=== PATIENT | female | born 1965 | race Caucasian/White ===

== ENCOUNTER → 2019-12-07 | Outpatient (CLI) | payer SELFPAY ==
[~2019-12-07] MED LIST: ALBUTEROL MDI; ALPR.5T PO; ASP81TEC PO; Albuterol; BUDE6HFA IH; FLUO60TA PO
--- NOTE | 2019-12-07 13:12 | Diagnostic Imaging Report ---
INDICATION: Abdominal pain on the left. Time of exam 12:11 PM The bowel gas pattern is nonobstructed. No pathologic calcifications are seen. No free air is identified. IMPRESSION: No acute features detected. Dictated by: Dictated on workstation # [id number]
== END ==
LOC: RAD FS 11:50
PROVIDERS: ATTEND Family Medicine
DX: R10.32 Left lower quadrant pain (principal)
CPT/HCPCS: 74018

== ENCOUNTER 2020-03-08 05:50 | Outpatient (RCR) | payer OTHER ==
[~2020-03-08] VITALS: Ht 177.8 cm; Wt 64.5 kg
[~2020-03-08 05:50] MED LIST changes: +ASPI-999 PO; +DULO30CA49 PO; +MV-M1TAB57 PO; +NF-LAMO200 PO
== END 2020-03-08 15:08 | disposition home or self-care (01) ==
LOC: PREOP 05:50
PROVIDERS: ATTEND Surgery
DX: Z01.818 Encounter for other preprocedural examination (principal); Z01.812 Encounter for preprocedural laboratory examination; R19.5 Other fecal abnormalities; R19.4 Change in bowel habit; R10.12 Left upper quadrant pain; Z20.828 Contact with and (suspected) exposure to other viral communicable diseases
CPT/HCPCS: 87635

== ENCOUNTER 2020-03-13 07:21 | Day surgery (SDC) | payer OTHER ==
[2020-03-13] VITALS (8 sets, daily range): BP systolic 105–121; BP diastolic 62–73
[~2020-03-13] VITALS: Ht 177.8 cm; Wt 64.5 kg
--- OUTSIDE RECORDS SUMMARY | 2020-03-13 07:28 | XMS REPORT ---
Author Author Bailey MOURA Organization [facility] Address [address] [place] [address] Care Team Providers Care Display Screen Fabricator Name Role Phone DAVID MOURA Unavailable PROBLEMS Type Condition ICD9-CM Code [id number] Code Onset Dates Condition S tatus SNOMED Code Problem Panic disorder with agoraphobia and moderate panic attacks F40.01 Active 8938480 Problem Bipolar II disorder F31.81 Active 65497649 Problem ADHD (attention deficit hyperactivity disorder), inattentive type F90.0 Active 88230695 Problem Menopause Z78.0 Active 298343510 Problem Bipolar affective disorder, currently depressed, mild F31.31 Active 902894109 Problem Major depressive disorder wi th single episode, remission status unspecified F32.9 Active 22716712 Problem Rhinosinusitis J32.9 Active 85544 4004 Problem Chronic obstructive pulmonary disease, unspecified COPD ty pe J44.9 Active 98290723 Problem Attention deficit hyperactivity disorder (ADHD), combi lars type F90.2 Active 62852115 Problem Alcohol abuse F10.10 Active 166656 05 Problem Alcohol consumption binge drinking F10.10 Active 073762431 Problem Bipolar affective disorder, currently depressed, moderate F31.32 Active 392666849 ALLERGIES No Information ENCOUNTERS Encounter Location Date Diagnosis [facility] [address] [id number] [place] [address] Nov, [facility] [address] [id number] [place] [address] 17 Nov, 2019 [facility] [address] [facility] [id number] [address] [place] [address] Aug, Rhinosinusitis J32.9 and Sor e throat J02.9 [facility] [address] [facility] [id number] [address] [place] [address] May, Bronchitis J40 and Wheezing R06.2 [place] [address] [address] Mar, Bipolar affective disorder, currently de pressed, mild F31.31 [place] [address] [address] Feb, [place] [address] [address] Feb, [place] [address] [address] Feb, [place] [address] [address] Feb, Chronic obstructive pulmonary disease, u nspecified COPD type J44.9 [place] [address] [address] January, [place] [address] [address] Dec, Bipolar affective disorder, currently de pressed, moderate F31.32 ; Panic disorder with agoraphobia and moderate panic attacks F40.01 and Alcohol consumption binge drinking F10.10 [place] [address] [address] Nov, Chronic obstructive pulmonary disease, u nspecified COPD type J44.9 [place] [address] [address] Nov, [address] [place] [address] Nov, Screening for breast cancer Z12.31 [place] [address] [address] Oct, Left arm pain M79.602 ; Screening for br east cancer Z12.31 ; Encounter for smoking cessation counseling Z71.6 ; Major depressive disorder with single episode, remission status unspecified F32.9 ; Panic disorder with agoraphobia and moderate panic attacks F40.01 and Neck pain M54.2 [facility] [address] [place] [id number] [place] [address] Oct, Chronic obstructive pulmonary disease, u nspecified COPD type J44.9 [facility] [address] [place] [id number] [place] [address] Sep, [facility] [address] [address] Jul, Chronic obstructive pulmonary disease, u nspecified COPD type J44.9 [facility] [address] [address] Jul, Chronic obstructive pulmonary disease, u nspecified COPD type J44.9 [facility] [address] [address] Jun, [facility] [address] [address] Jun, [place] [address] [address] May, [facility] [address] [address] Apr, [place] [address] [address] Apr, Screening for diabetes mellitus Z13.1 ; Screening for lipid disorders Z13.220 and Post-menopause Z78.0 [place] [address] [address] Apr, Pain in female genitalia on intercourse N94.10 ; Well woman exam with routine gynecological exam Z01.419 ; Major depressive disorder with current active episode, unspecified depression episode severity, unspecified whether recurrent F32.9 ; Post-menopause Z78.0 ; Screening for diabetes mellitus Z13.1 and Screening for lipid disorders Z13.220 [facility] [address] [place] [id number] [place] [address] Nov, [facility] [address] [address] Nov, [facility] [address] [facility] [id number] [address] [place] [address] Oct, Sore throat J02.9 and Nasoph aryngitis acute J00 [facility] [address] [id number] [place] [address] May, Chronic obstructive pulmonary disease, u nspecified COPD type J44.9 [facility] [address] [place] [id number] [place] [address] May, [facility] [address] [address] Apr, Chronic obstructive pulmonary disease, u nspecified COPD type J44.9 [facility] [id number] [place] [address] Apr, Chronic obstructive pulmonary disease, u nspecified COPD type J44.9 [facility] [id number] [place] [address] Mar, [facility] [id number] [place] [id number] Mar, Dental caries K02.9 [facility] [address] [address] January, Menopause Z78.0 [facility] [address] [address] Dec, [facility] [address] [id number] [place] [address] Dec, [facility] [address] [address] Dec, [facility] [address] [address] Dec, [facility] [address] [address] Nov, Chronic obstructive pulmonary disease, u nspecified COPD type J44.9 ; Right elbow pain M25.521 ; Menopause Z78.0 and Bipolar II disorder F31.81 [place] [address] [address] Oct, [place] [address] [address] Oct, [place] [address] [address] Oct, Bipolar II disorder F31.81 ; Panic disor mitul with agoraphobia and moderate panic attacks F40.01 and Attention deficit hyperactivity disorder (ADHD), combined type F90.2 [place] [address] [address] Oct, Lateral epicondylitis of right elbow M77 .11 [place] [address] [address] Sep, Lateral epicondylitis of right elbow M77 .11 and Major depressive disorder with single episode, remission status unspecified F32.9 [place] [address] [address] Aug, Lateral epicondylitis of right elbow M77 .11 [place] [address] [address] 16 Jul, 2016 Menopause Z78.0 [place] [address] [address] 12 May, 2016 [place] [address] [address] 08 May, 2016 Well woman exam with routine gynecologic al exam Z01.419 ; Lateral epicondylitis of right elbow M77.11 and Chronic obstructive pulmonary disease, unspecified COPD type J44.9 [place] [address] [address] 19 Mar, 2016 Major depressive disorder with single ep isode, remission status unspecified F32.9 ; Chronic obstructive pulmonary disease, unspecified COPD type J44.9 ; Right elbow pain M25.521 and Menopause Z78.0 [place] [address] [address] Mar, [facility] [address] [address] Feb, Right elbow pain M25.521 and Chronic obs tructive pulmonary disease, unspecified COPD type J44.9 [facility] [address] [address] January, Anxiety disorder, unspecified F41.9 and Major depressive disorder, single episode, unspecified F32.9 [facility] [address] [address] Nov, [facility] [address] [address] Jun, [facility] [address] [address] Jun, [facility] [address] [address] Jun, [facility] [address] [address] May, [facility] [address] [address] May, Sinusitis 473.9 [facility] [address] [address] May, [facility] [address] [address] Apr, Dysuria 788.1 ; Urinary tract infection 599.0 ; Depression 311 ; Anxiety 300.00 and Muscle spasm 728.85 [facility] [address] [address] Apr, [facility] [address] [address] Apr, [facility] [address] [address] Apr, [facility] [address] [address] Mar, Lateral epicondylitis of right elbow 726 .32 [place] [address] [address] Mar, [facility] [address] [address] Feb, Anxiety 300.00 ; Tendonitis 726.90 ; Pablo k spasm 724.8 and Lumbago 724.2 [place] [address] [address] Dec, [place] [address] [address] Dec, [place] [address] [address] Jun, [place] [address] [address] Jun, [place] [address] [address] Dec, [place] [address] [address] Dec, [place] [address] [address] Jun, [place] [address] [address] Jun, IMMUNIZATIONS No Known Immunizations SOCIAL HISTORY Never Assessed REASON FOR VISIT Repository Medication PLAN OF CARE VITAL SIGNS MEDICATIONS Medication Instructions Dosage Frequency Start Date End Date Duration S tatus Symbicort 160-4.5 MCG/ACT Inhalation Twice a day INHALE TWO PUFFS BY MOUTH TWICE DAILY 12h Active Aspirin 81 MG Orally Once a day 1 tablet 24h Active Prozac 20 mg Orally Once a day 3 capsules in the morning 24h 60 days Active Premarin 0.625 MG/GM Vaginal daily x 1 week then twice weekly af ter as directed Apr, Not-Taking Prozac 40 mg Orally Once a day 1 capsule in the morning 24h 30 days Not-Taking RESULTS No Results PROCEDURES No Known procedures INSTRUCTIONS MEDICATIONS ADMINISTERED No Known Medications MEDICAL (GENERAL) HISTORY Type Description Date Medical History depression Medical History elbow pain Medical History Bipolar II disorder Medical History Chronic obstructive pulmonary disease, u nspecified COPD type Medical History Major depressive disorder wi th single episode, remission status unspecified Medical History Panic disorder with agoraphobia and mode rate panic attacks Medical History ADHD (attention deficit hype ractivity disorder), inattentive type Surgical History section 1985 Surgical History cataract both eyes Surgical History left arm rotator cuff Hospitalization History surgical only
--- OUTSIDE RECORDS SUMMARY | 2020-03-13 07:28 | XMS REPORT ---
Author Author Bailey Perry Organization [facility] Address [address] [place] [address] Care Team Providers Care Plant Controller Name Role Phone CHERYL Perry Unavailable PROBLEMS Type Condition ICD9-CM Code [id number] Code Onset Dates Condition S tatus SNOMED Code Problem Panic disorder with agoraphobia and moderate panic attacks F40.01 Active 1577568 Problem Bipolar II disorder F31.81 Active 12725382 Problem ADHD (attention deficit hyperactivity disorder), inattentive type F90.0 Active 17490714 Problem Menopause Z78.0 Active 548872524 Problem Bipolar affective disorder, currently depressed, mild F31.31 Active 115803821 Problem Major depressive disorder wi th single episode, remission status unspecified F32.9 Active 42843385 Problem Rhinosinusitis J32.9 Active 70160 4004 Problem Chronic obstructive pulmonary disease, unspecified COPD ty pe J44.9 Active 68056490 Problem Attention deficit hyperactivity disorder (ADHD), combi lars type F90.2 Active 99521639 Problem Alcohol abuse F10.10 Active 533441 05 Problem Alcohol consumption binge drinking F10.10 Active 957386178 Problem Bipolar affective disorder, currently depressed, moderate F31.32 Active 885453474 ALLERGIES No Information ENCOUNTERS Encounter Location Date Diagnosis [facility] [address] [id number] [place] [address] Oct, [facility] [address] [facility] [id number] [address] [place] [address] Aug, Rhinosinusitis J32.9 and Sor e throat J02.9 [facility] [address] [facility] [id number] [address] [place] [address] May, Bronchitis J40 and Wheezing R06.2 [facility] [address] [place] [id number] [place] [address] Mar, Bipolar affective disorder, currently de pressed, mild F31.31 [place] [address] [address] Feb, [place] [address] [address] Feb, [place] [address] [address] Feb, [place] [address] [address] Feb, Chronic obstructive pulmonary disease, u nspecified COPD type J44.9 [place] [address] [address] January, [place] [address] [address] Dec, Bipolar affective disorder, currently de pressed, moderate F31.32 ; Panic disorder with agoraphobia and moderate panic attacks F40.01 and Alcohol consumption binge drinking F10.10 [place] [address] [address] Nov, Chronic obstructive pulmonary disease, u nspecified COPD type J44.9 [place] [address] [place] [id number] [place] [address] Nov, [address] [place] [address] Nov, Screening for breast cancer Z12.31 [place] [address] [address] Oct, Left arm pain M79.602 ; Screening for br east cancer Z12.31 ; Encounter for smoking cessation counseling Z71.6 ; Major depressive disorder with single episode, remission status unspecified F32.9 ; Panic disorder with agoraphobia and moderate panic attacks F40.01 and Neck pain M54.[address] [address] Oct, Chronic obstructive pulmonary disease, u nspecified COPD type J44.9 [facility] [address] [facility] [place] [address] Sep, [facility] [address] [place] [id number] [place] [address] Jul, Chronic obstructive pulmonary disease, u nspecified COPD type J44.9 [facility] [address] [place] [id number] [place] [address] Jul, Chronic obstructive pulmonary disease, u nspecified COPD type J44.9 [facility] [address] [place] [id number] [place] [address] Jun, [facility] [address] [id number] [place] [address] Jun, [place] [address] [facility] [place] [address] May, [facility] [address] [id number] [place] [address] Apr, [facility] [address] [facility] [place] [address] Apr, Screening for diabetes mellitus Z13.1 ; Screening for lipid disorders Z13.220 and Post-menopause Z78.0 [place] [address] [facility] [place] [address] Apr, Pain in female genitalia on intercourse N94.10 ; Well woman exam with routine gynecological exam Z01.419 ; Major depressive disorder with current active episode, unspecified depression episode severity, unspecified whether recurrent F32.9 ; Post-menopause Z78.0 ; Screening for diabetes mellitus Z13.1 and Screening for lipid disorders Z13.220 [place] [address] [facility] [place] [address] Nov, [facility] [address] [facility] [place] [address] Nov, [facility] [address] [facility] [id number] [address] [place] [address] Oct, Sore throat J02.9 and Nasoph aryngitis acute J00 [facility] [address] [address] May, Chronic obstructive pulmonary disease, u nspecified COPD type J44.9 [facility] [address] [address] May, [facility] [address] [address] Apr, Chronic obstructive pulmonary disease, u nspecified COPD type J44.9 [place] [address] [address] Apr, Chronic obstructive pulmonary disease, u nspecified COPD type J44.9 [facility] [address] [address] Mar, [facility] [address] [id number] Mar, Dental caries K02.9 [facility] [address] [address] January, Menopause Z78.0 [facility] [address] [address] Dec, [facility] [address] [address] Dec, [facility] [address] [address] Dec, [facility] [address] [address] Dec, [facility] [address] [address] Nov, Chronic obstructive pulmonary disease, u nspecified COPD type J44.9 ; Right elbow pain M25.521 ; Menopause Z78.0 and Bipolar II disorder F31.81 [facility] [address] [address] Oct, [place] [address] [address] Oct, [place] [address] [address] Oct, Bipolar II disorder F31.81 ; Panic disor mitul with agoraphobia and moderate panic attacks F40.01 and Attention deficit hyperactivity disorder (ADHD), combined type F90.2 [place] [address] [address] Oct, Lateral epicondylitis of right elbow M77 .11 [place] [address] [address] Sep, Lateral epicondylitis of right elbow M77 .11 and Major depressive disorder with single episode, remission status unspecified F32.9 [place] [address] [address] Aug, Lateral epicondylitis of right elbow M77 .11 [place] [address] [address] Jul, Menopause Z78.0 [place] [address] [address] 12 May, 2016 [place] [address] [address] 08 May, 2016 Well woman exam with routine gynecologic al exam Z01.419 ; Lateral epicondylitis of right elbow M77.11 and Chronic obstructive pulmonary disease, unspecified COPD type J44.9 [place] [address] [address] Mar, Major depressive disorder with single ep isode, remission status unspecified F32.9 ; Chronic obstructive pulmonary disease, unspecified COPD type J44.9 ; Right elbow pain M25.521 and Menopause Z78.0 [place] [address] [address] 05 Mar, [address] [address] Feb, Right elbow pain M25.521 and Chronic obs tructive pulmonary disease, unspecified COPD type J44.9 [facility] [address] [address] January, Anxiety disorder, unspecified F41.9 and Major depressive disorder, single episode, unspecified F32.9 [facility] [address] [address] Nov, [facility] [address] [address] Jun, [facility] [address] [address] Jun, [facility] [address] [address] Jun, [facility] [address] [address] May, [facility] [address] [address] May, Sinusitis 473.9 [place] [address] [address] May, [facility] [address] [address] Apr, Dysuria 788.1 ; Urinary tract infection 599.0 ; Depression 311 ; Anxiety 300.00 and Muscle spasm 728.85 [facility] [address] [address] Apr, [facility] [address] [address] Apr, [facility] [address] [address] Apr, [facility] [address] [address] Mar, Lateral epicondylitis of right elbow 726 .32 [facility] [address] [address] Mar, [facility] [address] [address] Feb, Anxiety 300.00 ; Tendonitis 726.90 ; Pablo k spasm 724.8 and Lumbago 724.2 [place] [address] [address] Dec, [facility] [address] [address] Dec, [place] [address] [address] Jun, [place] [address] [address] Jun, [place] [address] [address] Dec, [facility] [address] [address] Dec, [place] [address] [address] Jun, [place] [address] [address] Jun, IMMUNIZATIONS No Known Immunizations SOCIAL HISTORY Never Assessed REASON FOR VISIT PLAN OF CARE VITAL SIGNS Height 70 in 2013-12-30 Weight 154.25 lbs 2013-12-30 Temperature 100.3 degrees Fahrenheit 2013-12-30 Heart Rate 96 bpm 2013-12-30 Respiratory Rate 20 2013-12-30 Blood pressure systolic 105 mmHg 2013-12-30 Blood pressure diastolic 68 mmHg 2013-12-30 MEDICATIONS Unknown Medications RESULTS No Results PROCEDURES Procedure Date Ordered Result Body Site STREP A ASSAY W/OPTIC December 30, 2013 INSTRUCTIONS MEDICATIONS ADMINISTERED No Known Medications MEDICAL [...] ractivity disorder), inattentive type Surgical History section 1988, 1985 Surgical History cataract both eyes Surgical History left arm rotator cuff Hospitalization History surgical only
--- OUTSIDE RECORDS SUMMARY | 2020-03-13 07:28 | XMS REPORT ---
Author Author Bailey Perry Organization [facility] Address [address] [place] [address] Care Team Providers Care Mill Recorder Name Role Phone CHERYL Perry Unavailable PROBLEMS Type Condition ICD9-CM Code SXS21-SZ Code Onset Dates Condition S tatus SNOMED Code Problem Panic disorder with agoraphobia and moderate panic attacks F40.01 Active 5839485 Problem Bipolar II disorder F31.81 Active 19687890 Problem ADHD (attention deficit hyperactivity disorder), inattentive type F90.0 Active 93261164 Problem Menopause Z78.0 Active 815726723 Problem Bipolar affective disorder, currently depressed, mild F31.31 Active 956134640 Problem Major depressive disorder wi th single episode, remission status unspecified F32.9 Active 86579797 Problem Rhinosinusitis J32.9 Active 58313 4004 Problem Chronic obstructive pulmonary disease, unspecified COPD ty pe J44.9 Active 41898583 Problem Attention deficit hyperactivity disorder (ADHD), combi lars type F90.2 Active 85866618 Problem Alcohol abuse F10.10 Active 136250 05 Problem Alcohol consumption binge drinking F10.10 Active 528596124 Problem Bipolar affective disorder, currently depressed, moderate F31.32 Active 864322851 ALLERGIES No Information ENCOUNTERS Encounter Location Date Diagnosis [place] [address] [address] [facility] [id number] [address] [place] [address] Mar, [place] [address] [address] [facility] [id number] [address] [place] [address] Mar, [place] [address] [address] [place] [id number] [address] [place] [address] Feb, Bipolar affective disorder, currently depressed, mild F31.31 and Panic disorder with agoraphobia and moderate panic attacks F40.01 [place] [address] [address] [place] [id number] [address] [place] [address] January, Bipolar affective disorder, currently depressed, mild F31.31 and Panic disorder with agoraphobia and moderate panic attacks F40.01 [facility] [place] [address] [place] [id number] [address] [place] [address] January, [place] [id number] [place] [address] Dec, [place] [address] [address] Dec, Bipolar affective disorder, currently depressed, mild F31.31 [place] [address] [address] Dec, LLQ abdominal pain R10.[id number] [place] [address] Dec, LLQ abdominal pain R10.32 an d Bowel habit changes R19.4 [place] [address] [address] [place] [id number] [address] [place] [address] Nov, Bipolar affective disorder, currently depressed, mild F31.31 and Panic disorder with agoraphobia and moderate panic attacks F40.01 [facility] [address] [place], [place] [id number] [address] [place] [address] Aug, Rhinosinusitis J32.9 and Sor e throat J02.9 [facility] [address] [place], [place] [id number] [address] [place] [address] May, Bronchitis J40 and Wheezing R06.[address] [address] Mar, Bipolar affective disorder, currently depressed, mild F31.31 [place] [address] [address] [place] [id number] [address] [place] [address] Feb, [place] [address] [address] Feb, [place] [address] [address] [place] [id number] [address] [place] [address] Feb, [place] [address] [place] [address] Feb, Chronic obstructive pulmonar y disease, unspecified COPD type J44.9 [place] [address] [address] [place] [id number] [address] [place] [address] January, [place] [address] [address] [place] [id number] [address] [place] [address] Dec, Bipolar affective disorder, currently depressed, moderate F31.32 ; Panic disorder with agoraphobia and moderate panic attacks F40.01 and Alcohol consumption binge drinking F10.10 [place] [id number] [address] [place] [address] Nov, Chronic obstructive pulmonar y disease, unspecified COPD type J44.9 [place] [address] [address] [place] [id number] [address] [place] [address] Nov, [id number] [place] [address] Nov, Screening for breast cancer Z12.31 [place] [id number] [address] [place] [address] Oct, Left arm pain M79.602 ; Scre ening for breast cancer Z12.31 ; Encounter for smoking cessation counseling Z71.6 ; Major depressive disorder with single episode, remission status unspecified F32.9 ; Panic disorder with agoraphobia and moderate panic attacks F40.01 and Neck pain M54.2 [place] [id number] [address] [place] [address] 05 Oct, 2018 Chronic obstructive pulmonar y disease, unspecified COPD type J44.9 [place] [address] [address] [place] [id number] [address] [place] [address] Sep, [address] [place] [address] Jul, Chronic obstructive pulmonar y disease, unspecified COPD type J44.9 [facility] [place] [address] [facility] [id number] [address] [place] [address] Jul, Chronic obstructive pulmonar y disease, unspecified COPD type J44.9 [facility] [place] [address] [facility] [id number] [address] [place] [address] Jun, [facility] [place] [address] [place] [id number] [address] [place] [address] Jun, [facility] [place] [address] [address] May, [facility] [place] [address] [address] Apr, [facility] [place] [address] [address] Apr, Screening for diabetes melli tus Z13.1 ; Screening for lipid disorders Z13.220 and Post-menopause Z78.0 [place] [address] [address] Apr, Pain in female genitalia on intercourse N94.10 ; Well woman exam with routine gynecological exam Z01.419 ; Major depressive disorder with current active episode, unspecified depression episode severity, unspecified whether recurrent F32.9 ; Post-menopause Z78.0 ; Screening for diabetes mellitus Z13.1 and Screening for lipid disorders Z13.220 [facility] [place] [address] [facility] [id number] [address] [place] [address] Nov, [facility] [place] [address] [address] Nov, [facility] [address] [place] [id number] [address] [place] [address] Oct, Sore throat J02.9 and Nasoph aryngitis acute J00 [facility] [place] [address] [facility] [id number] [address] [place] [address] May, Chronic obstructive pulmonar y disease, unspecified COPD type J44.9 [facility] [place] [address] [id number] [address] [place] [address] May, [facility] [place] [address] [facility] [id number] [address] [place] [address] Apr, Chronic obstructive pulmonar y disease, unspecified COPD type J44.9 [facility] [place] [address] [id number] [address] [place] [address] Apr, Chronic obstructive pulmonar y disease, unspecified COPD type J44.9 [facility] [place] [address] [id number] [address] [place] [address] Mar, [facility] [address] [id number] [address] [place] [id number] Mar, Dental caries K02.9 [facility] [place] [address] [facility] [id number] [address] [place] [address] January, Menopause Z78.0 [facility] [place] [address] [facility] [id number] [address] [place] [address] Dec, [facility] [place] [address] [facility] [id number] [address] [place] [address] Dec, [facility] [place] [address] [facility] [id number] [address] [place] [address] Dec, [facility] [place] [address] [facility] [id number] [address] [place] [address] Dec, [facility] [place] [address] [facility] [id number] [address] [place] [address] Nov, Chronic obstructive pulmonar y disease, unspecified COPD type J44.9 ; Right elbow pain M25.521 ; Menopause Z78.0 and Bipolar II disorder F31.81 [facility] [place] [address] [facility] [id number] [address] [place] [address] Oct, [facility] [place] [address] [id number] [address] [place] [address] Oct, [facility] [place] [address] [id number] [address] [place] [address] Oct, Bipolar II disorder F31.81 ; Panic disorder with agoraphobia and moderate panic attacks F40.01 and Attention deficit hyperactivity disorder (ADHD), combined type F90.2 [facility] [place] [address] [id number] [address] [place] [address] Oct, Lateral epicondylitis of rig ht elbow M77.11 [facility] [place] [address] [id number] [address] [place] [address] Sep, Lateral epicondylitis of rig ht elbow M77.11 and Major depressive disorder with single episode, remission status unspecified F32.9 [place] [address] [id number] [address] [place] [address] Aug, Lateral epicondylitis of rig ht elbow M77.11 [facility] [place] [address] [id number] [address] [place] [address] Jul, Menopause Z78.0 [facility] [place] [address] [id number] [address] [place] [address] 12 May, 2016 [facility] [place] [address] [id number] [address] [place] [address] 08 May, 2016 Well woman exam with routine gynecological exam Z01.419 ; Lateral epicondylitis of right elbow M77.11 and Chronic obstructive pulmonary disease, unspecified COPD type J44.9 [facility] [place] [address] [id number] [address] [place] [address] Mar, Major depressive disorder wi th single episode, remission status unspecified F32.9 ; Chronic obstructive pulmonary disease, unspecified COPD type J44.9 ; Right elbow pain M25.521 and Menopause Z78.0 [facility] [place] [address] [id number] [address] [place] [address] Mar, [facility] [place] [address] [facility] [id number] [address] [place] [address] Feb, Right elbow pain M25.521 and Chronic obstructive pulmonary disease, unspecified COPD type J44.9 [facility] [place] [address] [facility] [id number] [address] [place] [address] January, Anxiety disorder, unspecifie d F41.9 and Major depressive disorder, single episode, unspecified F32.9 [facility] [place] [address] [id number] [address] [place] [address] Nov, [facility] [place] [address] [place] [id number] [address] [place] [address] Jun, [facility] [place] [address] [place] [id number] [address] [place] [address] Jun, [facility] [place] [address] [place] [id number] [address] [place] [address] Jun, [facility] [place] [address] [facility] [id number] [address] [place] [address] May, [facility] [place] [address] [place] [id number] [address] [place] [address] May, Sinusitis 473.9 [facility] [place] [address] [facility] [id number] [address] [place] [address] May, [facility] [place] [address] [facility] [id number] [address] [place] [address] Apr, Dysuria 788.1 ; Urinary trac t infection 599.0 ; Depression 311 ; Anxiety 300.00 and Muscle spasm 728.85 [facility] [place] [address] [facility] [id number] [address] [place] [address] Apr, [facility] [place] [address] [facility] [id number] [address] [place] [address] Apr, [facility] [place] [address] [place] [id number] [address] [place] [address] Apr, [facility] [place] [address] [id number] [address] [place] [address] Mar, Lateral epicondylitis of rig ht elbow 726.32 [facility] [place] [address] [id number] [address] [place] [address] Mar, [facility] [place] [address] [id number] [address] [place] [address] Feb, Anxiety 300.00 ; Tendonitis 726.90 ; Back spasm 724.8 and Lumbago 724.2 [facility] [place] [address] [id number] [address] [place] [address] Dec, [facility] [place] [address] [id number] [address] [place] [address] Dec, [facility] [place] [address] [id number] [address] [place] [address] Jun, [facility] [place] [address] [id number] [address] [place] [address] Jun, [facility] [place] [address] [id number] [address] [place] [address] Dec, [facility] [place] [address] [id number] [address] [place] [address] Dec, [facility] [place] [address] [id number] [address] [place] [address] Jun, [facility] [place] [address] [id number] [address] [place] [address] Jun, IMMUNIZATIONS Vaccine Route Administration Date Status FLULAVAL (3 & UP) 2013 Unknown Jun 24, 2013 Administe red SOCIAL HISTORY Never Assessed REASON FOR VISIT PLAN OF CARE VITAL SIGNS MEDICATIONS Unknown Medications RESULTS No Results PROCEDURES No Known procedures [...]
--- OUTSIDE RECORDS SUMMARY | 2020-03-13 07:28 | XMS REPORT ---
Author Author Bailey Perry Organization [facility] Address [address] [place] [address] Care Team Providers Care Gang Vibrator Operator Name Role Phone CHERYL Perry Unavailable PROBLEMS Type Condition ICD9-CM Code [id number] Code Onset Dates Condition S tatus SNOMED Code Problem Panic disorder with agoraphobia and moderate panic attacks F40.01 Active 3335529 Problem Bipolar II disorder F31.81 Active 53641862 Problem ADHD (attention deficit hyperactivity disorder), inattentive type F90.0 Active 42512409 Problem Menopause Z78.0 Active 281593520 Problem Bipolar affective disorder, currently depressed, mild F31.31 Active 885296266 Problem Major depressive disorder wi th single episode, remission status unspecified F32.9 Active 27969594 Problem Rhinosinusitis J32.9 Active 53956 4004 Problem Chronic obstructive pulmonary disease, unspecified COPD ty pe J44.9 Active 61147901 Problem Attention deficit hyperactivity disorder (ADHD), combi lars type F90.2 Active 54008130 Problem Alcohol abuse F10.10 Active 656856 05 Problem Alcohol consumption binge drinking F10.10 Active 710221132 Problem Bipolar affective disorder, currently depressed, moderate F31.32 Active 822425554 ALLERGIES No Information ENCOUNTERS Encounter Location Date Diagnosis [place] [id number] [facility] [id number] [address] [place] [address] January, [facility] [address] [facility] [id number] [address] [place] [address] Dec, [place] [address] [facility] [id number] [address] [place] [address] Dec, [facility] [address] [facility] [id number] [address] [place] [address] Dec, Bipolar affective disorder, currently depressed, mild F31.31 [facility] [address] [facility] [id number] [address] [place] [address] 06 Dec, 2019 LLQ abdominal pain R10.32 [facility] [address] [id number] [address] Dec, LLQ abdominal pain R10.32 an d Bowel habit changes R19.4 [facility] [address] [facility] [id number] [address] [place] [address] Nov, Bipolar affective disorder, currently depressed, mild F31.31 and Panic disorder with agoraphobia and moderate panic attacks F40.01 [facility] IN [facility] [address] [facility] [id number] [address] [place] [address] Aug, Rhinosinusitis J32.9 and Sor e throat J02.9 [facility] IN [facility] [address] [facility] [id number] [address] [place] [address] May, Bronchitis J40 and Wheezing R06.2 [place] [address] [facility] [id number] [address] [place] [address] Mar, Bipolar affective disorder, currently depressed, mild F31.31 [place] [address] [facility] [id number] [address] [place] [address] Feb, [facility] [address] [facility] [id number] [address] [place] [address] Feb, [facility] [address] [facility] [id number] [address] [place] [address] Feb, [facility] [address] [facility] [id number] [address] [place] [address] Feb, Chronic obstructive pulmonar y disease, unspecified COPD type J44.9 [facility] [address] [facility] [id number] [address] [place] [address] January, [facility] [address] [facility] [id number] [address] [place] [address] Dec, Bipolar affective disorder, currently depressed, moderate F31.32 ; Panic disorder with agoraphobia and moderate panic attacks F40.01 and Alcohol consumption binge drinking F10.10 [facility] [address] [facility] [id number] [address] [place] [address] Nov, Chronic obstructive pulmonar y disease, unspecified COPD type J44.9 [facility] [address] [facility] [id number] [address] [place] [address] Nov, [address] [id number] [address] Nov, Screening for breast cancer Z12.31 [place] [address] [facility] [id number] [address] [place] [address] 25 Oct, 2018 Left arm pain M79.602 ; Scre ening for breast cancer Z12.31 ; Encounter for smoking cessation counseling Z71.6 ; Major depressive disorder with single episode, remission status unspecified F32.9 ; Panic disorder with agoraphobia and moderate panic attacks F40.01 and Neck pain M54.2 [place] [address] [facility] [id number] [address] [place] [address] 05 Oct, 2018 Chronic obstructive pulmonar y disease, unspecified COPD type J44.9 [facility] [address] [facility] [id number] [address] [place] [address] Sep, [facility] [address] [facility] [id number] [address] [place] [address] Jul, Chronic obstructive pulmonar y disease, unspecified COPD type J44.9 [facility] [address] [facility] [id number] [address] [place] [address] Jul, Chronic obstructive pulmonar y disease, unspecified COPD type J44.9 [facility] [address] [facility] [id number] [address] [place] [address] Jun, [facility] [address] [facility] [id number] [address] [place] [address] Jun, [facility] [address] [facility] [id number] [address] [place] [address] May, [facility] [address] [facility] [id number] [address] [place] [address] Apr, [facility] [address] [facility] [id number] [address] [place] [address] Apr, Screening for diabetes melli tus Z13.1 ; Screening for lipid disorders Z13.220 and Post-menopause Z78.0 [facility] [address] [facility] [id number] [address] [place] [address] 16 Apr, 2018 Pain in female genitalia on intercourse N94.10 ; Well woman exam with routine gynecological exam Z01.419 ; Major depressive disorder with current active episode, unspecified depression episode severity, unspecified whether recurrent F32.9 ; Post-menopause Z78.0 ; Screening for diabetes mellitus Z13.1 and Screening for lipid disorders Z13.220 [facility] [address] [facility] [id number] [address] [place] [address] Nov, [facility] [address] [facility] [id number] [address] [place] [address] Nov, [facility] IN [facility] [address] [facility] [id number] [address] [place] [address] Oct, Sore throat J02.9 and Nasoph aryngitis acute J00 [facility] [address] [facility] [id number] [address] [place] [address] May, Chronic obstructive pulmonar y disease, unspecified COPD type J44.9 [facility] [address] [facility] [id number] [address] [place] [address] May, [facility] [address] [facility] [id number] [address] [place] [address] Apr, Chronic obstructive pulmonar y disease, unspecified COPD type J44.9 [facility] [address] [facility] [id number] [address] [place] [address] Apr, Chronic obstructive pulmonar y disease, unspecified COPD type J44.9 [facility] [address] [id number] [address] [place] [address] Mar, [facility] [address] [id number] [address] [place] [id number] Mar, Dental caries K02.9 [facility] [address] [id number] [address] [place] [address] January, Menopause Z78.0 [facility] [address] [id number] [address] [place] [address] Dec, [facility] [address] [id number] [address] [place] [address] Dec, [facility] [address] [id number] [address] [place] [address] Dec, [facility] [address] [id number] [address] [place] [address] Dec, [facility] [address] [id number] [address] [place] [address] Nov, Chronic obstructive pulmonar y disease, unspecified COPD type J44.9 ; Right elbow pain M25.521 ; Menopause Z78.0 and Bipolar II disorder F31.81 [facility] [address] [id number] [address] [place] [address] Oct, [facility] [address] [id number] [address] [place] [address] Oct, [facility] [address] [id number] [address] [place] [address] Oct, Bipolar II disorder F31.81 ; Panic disorder with agoraphobia and moderate panic attacks F40.01 and Attention deficit hyperactivity disorder (ADHD), combined type F90.2 [facility] [address] [id number] [address] [place] [address] Oct, Lateral epicondylitis of rig ht elbow M77.11 [facility] [address] [id number] [address] [place] [address] Sep, Lateral epicondylitis of rig ht elbow M77.11 and Major depressive disorder with single episode, remission status unspecified F32.9 [facility] [address] [id number] [address] [place] [address] 07 Aug, 2016 Lateral epicondylitis of rig ht elbow M77.11 [facility] [address] [id number] [address] [place] [address] 16 Jul, 2016 Menopause Z78.0 [place] [address] [id number] [address] [place] [address] 12 May, 2016 [facility] [address] [id number] [address] [place] [address] 08 May, 2016 Well woman exam with routine gynecological exam Z01.419 ; Lateral epicondylitis of right elbow M77.11 and Chronic obstructive pulmonary disease, unspecified COPD type J44.9 [place] [address] [id number] [address] [place] [address] Mar, Major depressive disorder wi th single episode, remission status unspecified F32.9 ; Chronic obstructive pulmonary disease, unspecified COPD type J44.9 ; Right elbow pain M25.521 and Menopause Z78.0 [facility] [address] [id number] [address] [place] [address] Mar, [facility] [address] [id number] [address] [place] [address] Feb, Right elbow pain M25.521 and Chronic obstructive pulmonary disease, unspecified COPD type J44.9 [facility] [address] [id number] [address] [place] [address] January, Anxiety disorder, unspecifie d F41.9 and Major depressive disorder, single episode, unspecified F32.9 [facility] [address] [id number] [address] [place] [address] Nov, [facility] [address] [id number] [address] [place] [address] Jun, [facility] [address] [facility] [id number] [address] [place] [address] Jun, [facility] [address] [facility] [id number] [address] [place] [address] Jun, [facility] [address] [place] [id number] [address] [place] [address] May, [facility] [address] [facility] [id number] [address] [place] [address] May, Sinusitis 473.9 [facility] [address] [place] [id number] [address] [place] [address] May, [facility] [address] [place] [id number] [address] [place] [address] Apr, Dysuria 788.1 ; Urinary trac t infection 599.0 ; Depression 311 ; Anxiety 300.00 and Muscle spasm 728.85 [facility] [address] [place] [id number] [address] [place] [address] Apr, [facility] [address] [place] [id number] [address] [place] [address] Apr, [facility] [address] [place] [id number] [place] [address] Apr, [facility] [address] [place] [id number] [address] [place] [address] Mar, Lateral epicondylitis of rig ht elbow 726.32 [facility] [address] [facility] [id number] [address] [place] [address] Mar, [facility] [address] [place] [id number] [address] [place] [address] Feb, Anxiety 300.00 ; Tendonitis 726.90 ; Back spasm 724.8 and Lumbago 724.2 [facility] [address] [place] [id number] [address] [place] [address] 14 Dec, 2014 [facility] [address] [id number] [address] [place] [address] Dec, [facility] [address] [id number] [address] [place] [address] Jun, [facility] [address] [facility] [id number] [address] [place] [address] Jun, [facility] [address] [facility] [id number] [address] [place] [address] Dec, [facility] [address] [facility] [id number] [address] [place] [address] Dec, [facility] [address] [facility] [id number] [address] [place] [address] Jun, [facility] [address] [facility] [id number] [address] [place] [address] Jun, IMMUNIZATIONS Vaccine Route Administration Date Status influenza IIV3 (history) Unknown Jun 16, 2014 Adminis tered SOCIAL HISTORY Never Assessed REASON FOR VISIT [...]
--- OUTSIDE RECORDS SUMMARY | 2020-03-13 07:28 | XMS REPORT ---
Author Author [facility] Workfolio [facility] Address [address] [address] Care Team Providers Care Crystalizer Tender Name Role Phone SABIHA OTTO Unavailable Unavailable BERTIN AMAROWNYA Unavailable Unavailable SABIHA OTTO Unavailable KELLY BILLY Unavailable SABIHA OTTO Unavailable KELLY BILLY Unavailable CECILIA BLISS Unavailable SABIHA OTTO Unavailable SABIHA Zambrano Unavailable KELLY BILLY Unavailable JAZMINE GONZALEZ Unavailable CONRAD GEE Unavailable KELLY BILLY Unavailable KELLY BILLY Unavailable GAMILKA, DAVID Unavailable GAULT, DAVID Unavailable GAULT, DAVID Unavailable GAULT, DAVID Unavailable GAULT, DAVID Unavailable GAULT, DAVID Unavailable GAULT, DAVID Unavailable Migration, Doctor Unavailable Unavailable Migration, Doctor Unavailable Unavailable GAULT, DAVID Unavailable Unavailable GAULT, DAVID Unavailable zzRAJOTTE, Unavailable GAULT, DAVID Unavailable DAVID MOURA MD Unavailable Unavailable Unavailable Unavailable Orlando Unavailable MD Zheng MOURA Unavailable Unavailable Unavailable Unavailable Unavailable Unavailable Allergies Normalized Allergy Reported Date of Reaction(s) Care Provider Facility Allergy Type classification allergen Allergy Onset DA (16 Unclassified No Known Drug 07-14-2013 - no information PAULO KINSEY Not Available sources.) Allergies , (97735) Medications Current Medications Medication Ingredient Drug Dose Dates Status Sig Sig Care Class(es) (Normalized) (Original) Provid er DULoxetine DULoxetine Serotonin Active no Duloxetine no 30 mg and information Hcl Active name delayed Norepinephr 90 ORAL release ine Daily oral Reuptake capsule (1 Inhibitor source.) lamoTRIgine lamoTRIgine Mood Active no Lamotrigine no 200 mg oral Stabilizer, information Active 1 name tablet (1 Anti-epilep ORAL Bedtime source.) tic Agent no Mv-Mn/Folic no Active no Mv-Mn/Folic no information Acid/Calciu information information Acid/Calcium name (1 source.) m/Vit K /Vit K Active 1 ORAL Daily Completed/Discontinued Medications Medication Ingredient Drug Dose Dates Status Sig Sig Care Class(es) (Normalized) (Original) Provid er no Albuterol beta2-Adren 07-14-20 Complete no Albuterol no information ergic 13 - d information Discontinued name (2 Agonist 03-06-20 NOT sources.) 20 APPLICABLE July 14, 2013 11:18am March 06, 2020 07-14-2013 Completed no Albutero no name - inform l Jose David 03-06-2020 ation Disconti nued 2 NOT APPLICAB LE Four Times Daily 1 July 14, 2013 11:18am March 06, 2020 ALPRAZolam ALPRAZolam Benzodiazep 03-06-20 Complete no Alpra zolam no 0.5 mg oral ine 20 d information Discontinued name tablet (1 1 ORAL Three source.) Times A Day And Prn March 06, 2020 Problems Problem Normalized Date Last Normalized Normalized Provider Fa cility Classification Problem(s) Recorded Problem Problem Sta tus Duration Other Arthralgia of Episodic Active DAVID Ratliff ity non-traumatic the upper arm [address] [facility] joint Translations: of [place] disorders (6 [ Right elbow [place] ([address]110) sources.) pain, Right elbow pain] Nonspecific Chest pain, Episodic Active PAULO ODGERS Not Available chest pain (4 unspecified , (95714) sources.) Other Encounter for Episodic Active DAVIDOtto MOURA [facility] [place] [address] [facility] suspected lipoid of [facility] conditions disorders [place] ([address]2862) (not mental Translations: disorders or [ - Screening infectious for lipid disease) (20 disorders sources.) Z13.220, - Screening for diabetes mellitus Z13.1, - Screening for diabetes mellitus Z13.1, - Screening for lipid disorders Z13.220, OTH SCREEN MAMMO-MALIGN NEOPLASM OF JOSE, OT (ABN) FINDINGS ON RADIOLOGICAL EXAMI, - Screening for breast cancer Z12.31] Other Lateral Episodic Active Stretch [facility] connective epicondylitis [address] [facility] tissue disease Translations: of [facility] (6 sources.) [ Lateral [place] ([address]35) epicondylitis of right elbow, Lateral epicondylitis of right elbow] Nonmalignant Other Episodic Active PETRA Not Avail able breast specified DO CECIL (98325) conditions (4 disorders of sources.) breast Other female Pain in female Chronic [facility] [place] [address] [facility] disorders (6 intercourse of [place] sources.) Translations: [place] ([address]) [ Pain in female genitalia on intercourse, Pain in female genitalia on intercourse] Other lower Painful Episodic Active PAULO ODGERS Not Cammy ilable respiratory respiration , (42401) disease (4 sources.) Substance-rela Tobacco use Chronic Active PAULO ODGERS N ot Available leti disorders disorder MD (72141) (4 sources.) Procedures Procedure Normalized Procedure Procedure Result Performer Facility Date 04-26-2018 Assay of estradiol no information no name [facility] (20940) 04-26-2018 Blood count complete no information no name [facility] [employer] auto&auto difrntl wbc [facility] (80863) 04-26-2018 Comprehensive no information no name [facility] metabolic panel [facility] (08191) 04-22-2018 Culture fngi no information no name [facility] mold/yeast prsmptv [facility] xcpt blood [place] (34433) 04-22-2018 Handlg&/or convey of no information no name [facility] [employer] spec for tr office to [facility] lab [place] (89557) 04-26-2018 Hemoglobin no information no name [facility] glycosylated a1c [facility] (29001) 04-22-2018 Iaadiadoo trichomonas no information no name [facility] vaginalis [facility] (30992) 04-22-2018 Infectious agent no information no name [facility] enzymatic actv oth/thn [facility] (28429) 04-26-2018 Lipid panel no information no name [facility] (54519) 04-22-2018 No Charge no information no name [facility] (52701) Immunizations The data below is from unstructured sources Immunization Event Date Not Given Reason Dose Number Nut Former Lot Number Vaccine Information Statement (VIS) Deta il Results Test Name Value Interpretation Reference Range Date Time Fa cility (Normalized) (Normalized) (Medline Reference) not yet categorized on 2019-12-10 Exp Date Positive (no code) [facility] (65802) not yet categorized on 2019-12-08 Exp date Negative (no code) [facility] (38856) not yet categorized on 2019-08-16 Exp date Negative (no code) [facility] (91337) other on 2018-04-26 Albumin/Globulin 1.6 (N) no informatio n mass ratio Cholesterol in 124 (H) no information LDL mass conc Cholesterol non 146 (H) no information HDL mass conc Cholesterol.tota 2.9 (N) no informatio n l/Cholesterol in HDL mass ratio Estradiol (E2) 15 pg/mL (N) [facility] mass [facility] (36665) Globulin 2.9 (N) no information Calculated mass conc (S) metabolic panel on 2018-04-26 Albumin mass 4.5 g/dL (N) 3.4 - 5.4 g/dL no inform ation conc ALP enzyme 52 U/L (N) 44 - 147 U/L no informati on act/vol ALT enzyme 15 U/L (N) 4 - 40 U/L no information act/vol AST enzyme 19 U/L (N) 10 - 34 U/L no informatio n act/vol Bilirubin mass 0.6 mg/dL (N) 0.1 - 1.2 mg/dL no inf ormation conc Calcium mass 9.8 mg/dL (N) 8.5 - 10.2 mg/dL no info rmation conc Chloride molar 107 mmol/L (N) 95 - 106 mmol/L no inf ormation conc CO2 molar conc 26 mmol/L (N) 23 - 29 mmol/L no info rmation Creatinine mass 0.79 mg/dL (N) no information conc GFR/1.73 sq M 100 (N) 90 - 120 no informati on predicted among mL/min/{1.73_m2} mL/min/{1.73_m2} blacks MDRD vol rate/area (S/P/Bld) GFR/1.73 sq 87 (N) 90 - 120 no information M.predicted MDRD mL/min/{1.73_m2} mL/min/{1.73_m2} vol rate/area Glucose mass 95 mg/dL (N) 60 - 125 mg/dL no inform ation conc Hemoglobin 5.1 (N) [facility] A1c/Hemoglobin.t [facility] No.2 fraction (Bld) (02136) Potassium molar 4.4 mmol/L (N) 3.7 - 5.2 mmol/L no i nformation conc Protein mass 7.4 g/dL (N) 6.4 - 8.3 g/dL no inform ation conc Sodium molar 142 mmol/L (N) 135 - 145 mmol/L no info rmation conc Urea nitrogen 12 mg/dL (N) 7 - 20 mg/dL no informa tion mass conc Urea NOT APPLICABLE (no code) no information nitrogen/Creatin ine mass ratio hematology on 2018-04-26 Basophils Auto 0.12 10*3/uL (N) 0 - 0.3 10*3/uL no in formation #/vol (Bld) Basophils/100 1.6 % (N) 0.5 - 1 % no informati on WBC Auto (Bld) Eosinophils Auto 0.3 10*3/uL (N) 0.05 - 0.5 no inform ation #/vol (Bld) 10*3/uL Eosinophils/100 4.0 % (N) 1 - 4 % no informa tion WBC Auto (Bld) Erythrocyte 12.9 % (N) 11.6 - 14.6 % no informat ion distribution width Auto Ratio (RBC) Hematocrit Auto 42.0 % (N) 36.1 - 50.3 % no info rmation Volume Fraction (Bld) Hemoglobin mass 14.1 g/dL (N) 12.1 - 17.2 g/dL no i nformation conc (Bld) Lymphocytes Auto 1.598 10*3/uL (N) 0.9 - 2.9 no info rmation #/vol (Bld) 10*3/uL Lymphocytes/100 21.3 % (N) 20 - 40 % no informa tion WBC Auto (Bld) MCH Auto Entitic 28.5 pg (N) 27 - 31 pg no inform ation mass (RBC) MCHC Auto mass 33.6 g/dL (N) 32 - 36 g/dL no inform ation conc (RBC) MCV Auto Entitic 84.8 fL (N) 80 - 100 fL no infor mation volume (RBC) Monocytes Auto 0.608 10*3/uL (N) 0.3 - 0.9 no inform ation #/vol (Bld) 10*3/uL Monocytes/100 8.1 % (N) 2 - 8 % no informati on WBC Auto (Bld) Neutrophils Auto 4.875 10*3/uL (N) 1.7 - 7 10*3/uL no information #/vol (Bld) Neutrophils/100 65 % (N) 40 - 60 % no informa tion WBC Auto (Bld) Platelet mean 10.6 fL (N) 7.2 - 11.7 fL no inform ation volume Auto Entitic volume (Bld) Platelets Auto 332 10*3/uL (N) 150 - 450 no informat ion #/vol (Bld) 10*3/uL RBC Auto #/vol 4.95 10*6/uL (N) 4.2 - 6.1 no informa tion (Bld) 10*6/uL WBC Auto #/vol 7.5 10*3/uL (N) 3.5 - 10.5 no informat ion (Bld) 10*3/uL cardiac on 2018-04-26 Cholesterol in 78 mg/dL (N) no information HDL mass conc Cholesterol mass 224 mg/dL (H) 180 - 200 mg/dL no i nformation conc Triglyceride 113 mg/dL (N) 0 - 150 mg/dL no informa tion mass conc other on 2018-04-22 CLIENT CONTACT: SHANTA SHAFFER (no code) no informatio n CLINICAL no information (no code) no information INFORMATION: COMMENT no information (no code) no information COMMENT no information (no code) no information COMMENT: no information (no code) no information CULTURE SEE NOTE (no code) no information Geologist Cyto no information (no code) no information stain ID Nom (Cervical or vaginal smear or scraping) Date of previous no information (no code) no informatio n biopsy Date of previous no information (no code) no informatio n PAP smear Exp date 03/2019 (no code) [facility] (04783) Exp date Negative (no code) [facility] (30335) GC neg~neg (no code) no information GENERAL no information (no code) [facility] CATEGORIZATION: [facility] (60983) HPV mRNA E6/E7, Not Detected (no code) no information SUREPATH VIAL INFECTION: no information (no code) [facility] (41542) Last menstrual no information (no code) no information period start date Lot # [id number] (no code) [facility] (48716) Reference lab GENITAL CULTURE (no code) no information test name Unsp time Keenan (Reference lab test) REPORT ALWAYS no information (no code) no information MESSAGE SIGNATURE REPORT STATUS: no information (no code) [facility] (18645) SMEAR SEE NOTE (no code) no information Specimen source Cervix (no code) no information Cyto stain Nom (Cervical or vaginal smear or scraping) Statement of no information (no code) no information adequacy Cyto stain Interp (Cervical or vaginal smear or scraping) TEST CODE: 4558 (no code) no information imm/path on 2018-04-22 Bacteria SEE NOTE (no code) no information identified Aer cx Nom (Genital specimen) Cytology study no information (no code) [facility] comment [facility] stain Interp Keenan [facility] (Cervical or (93621) vaginal smear or scraping) Microscopic no information (no code) no information observation Cyto stain Nom (Cvx) Pathologist Cyto no information (no code) [facility] lt stain ID Nom [facility] (Cervical or [facility] vaginal smear or (66980) scraping) other on 2017-10-08 Exp date Negative (no code) [facility] (37060) Vital Signs Vital Sign Value Interpretation Reference Date Time Care Prov ider Facility (Normalized) (Normalized) Range BMI (Body Mass 21.09 kg/m2 (no code) 15 - 25 kg/m2 04-22-2018 NIA MOURA Community Index) 17:40-[address] [place] [address] (90947) Body 97.9 [degF] (no code) 97.8 - 99.0 04-22-2018 DAVID FOX Community Temperature [degF] 17:40-[address] [place] [address] (68216) Height 177.8 cm (no code) cm 04-22-2018 [employer] munity 17:40-[address] [place] [address] (81386) Weight 66.68 kg (no code) kg 04-22-2018 [employer] munity 17:40-[address] [place] [address] ([id number]) Interventions No Information Plan of Treatment Normalized Care Care Detail Care Activity Date Care Provider F acility Activity (CHM) [facility] 08-26-2018 DAVID MOURA [phone] [facility] ([id number]) [facility] 07-12-2019 DAVID MOURA [address] [facility] (90572) [facility] 06-21-2019 DAVID MOURA [address] [facility] (92894) [facility] 11-22-2019 DAVID MOURA [id number] [place] [address] ([address]32) Coronavirus Ab Qn no information no information MD DAVID MOURA [address] [place] [address] (S) (Work Phone: [facility] ) (17654) [facility] DAVID MOURA [phone] [facility] procedure [facility] (27923) Goals Patient Goal Desired Goal no information no information Social History Normalized Code Original Code Date Value Tobacco smoking status Tobacco smoking status no information Smokes tobacco daily NHIS NHIS (finding) no information no information 03-06-2020 Rarely Uses no information no information 03-06-2020 No no information no information 03-06-2020 Current Everyda y Smoker no information no information 03-06-2020 Cigarettes Sex Assigned At Sex Assigned At no information F emale Functional Status The data below is from unstructured sourcesNo Functional Status information available Mental Status The data below is from unstructured sourcesNo Mental Status Information Available Encounters Encounter Normalized Encounter Encounter Diagnosis Care Provi mitul Organization Date Type 03-08-2020 Discharged Recurring no information (no phone) [facility] (no phone) 03-08-2020 07-14-2013 Emergency department no information no name no organization name - patient visit 07-14-2013 04-26-2018 Patient encounter no information no name no or ganization name 04-22-2018 Patient encounter no information no name no or ganization name 04-22-2018 Patient encounter no information no name no or ganization name 10-08-2017 Patient encounter no information no name no or ganization name 12-12-2019 Patient encounter no information (no phone) [facility] (no phone) 12-07-2019 Patient encounter no information DAVID MOURA MD ( no [facility] phone) (no phone) [facility] (no phone) 08-16-2019 Patient encounter no information no name no or ganization name procedure 03-17-2019 Patient encounter no information no name no or ganization name procedure 12-16-2018 Patient encounter no information no name no or ganization name procedure 11-09-2018 Patient encounter no information no name no or ganization name procedure 11-01-2018 Patient encounter no information no name no or ganization name procedure 06-12-2014 Patient encounter no information no name no or ganization name procedure 11-09-2013 Patient encounter no information no name no or ganization name procedure 10-24-2013 Patient encounter no information no name no or ganization name procedure no information Encounter for no name no organization name gynecological examination (general) (routine) without abnormal findings Medical Equipment The data below is from unstructured sourcesNo Medical Equipment Information available Payers Normalized Payer Value Self-pay no information ([id number]) Evaluation note Note Type Note Facility Evaluation No Assessments Information Available A scension note [facility] (70552) Summary Purpose eClinicalWorks SubmissioneClinicalWorks SubmissioneClinicalWorks SubmissioneClinicalWorks SubmissioneClinicalWorks SubmissioneClinicalWorks SubmissioneClinicalWorks SubmissioneClinicalWorks SubmissioneClinicalWorks SubmissioneClinicalWorks Submission Advance Directives Advance Directive Response Recorded Date/Time Advance Directives No Ju 2019 1:46pm Resuscitation Status Full Code March 06, 2020 1:46pm Additional Source Comments This clinical document has been generated using [employer] software that has been certified by the Office of the National Coordinator for Health Information Technology (ONC 15.99.04.3023.Diam.31.00.0.419724) and the National Committee for Lockstitch Collar Setter (NCQA, as an eMeasure certified technology). FOR RECORDS PERTAINING TO PATIENTS WHO ARE OR HAVE BEEN ENROLLED IN A CHEMICAL D EPENDENCY/SUBSTANCE ABUSE PROGRAM, SOME INFORMATION MAY BE OMITTED. This clinica l summary was aggregated from multiple sources. Caution should be exercised in using it in the provision of clinical care. This summary normalizes information from multiple sources, and as a consequence, information in this document may ma terially change the coding, format and clinical context of patient data. In kyleigh tion, data may be omitted in some cases. CLINICAL DECISIONS SHOULD BE BASED ON T HE PRIMARY CLINICAL RECORDS. [employer] provides no warranty or guara ntee of the accuracy or completeness of information in this document.The followi ng information is based on time limited clinical information UNRECOGNIZED CONTENT PROVIDED BELOW FOR UNRECOGNIZED SECTION MEDICAL (GENERAL) HISTORY Type Description Date Medical History depression Medical History elbow pain Surgical History section 1985 Surgical History cataract both eyes Surgical History left arm rotator cuff Hospitalization History surgical only Type Description Date Medical History depression Medical History elbow pain Medical History Bipolar II disorder Medical History Chronic obstructive pulmonary disease, unspecified COPD type Medical History Major depressive dis order with single episode, remission status unspecified Medical History Panic disorder with agoraphobia and moderate panic attacks Medical History ADHD (attention defi cit hyperactivity disorder), inattentive type Surgical History section 1988, 1985 Surgical History cataract both eyes Surgical History left arm rotator cuff Hospitalization History surgical only UNRECOGNIZED CONTENT PROVIDED BELOW FOR UNRECOGNIZED SECTION REASON FOR VISIT Lab (walk-in)Web Analytics Specialist hx updatedPALSMedication RequestPALS-SymbicortRefill RequestAnn ua physical (female)----[id number] CallRepository Medication
--- OUTSIDE RECORDS SUMMARY | 2020-03-13 07:29 | XMS REPORT ---
Author Author Bailey MOURA [facility] Address [address] [place] [address] Care Team Providers Care Carpenter Supervisor Name Role Phone DAVID MOURA Unavailable PROBLEMS Type Condition ICD9-CM Code [id number]-QZ Code Onset Dates Condition S tatus SNOMED Code Problem Menopause Z78.0 Active 103288930 Problem Lateral epicondylitis of right elbow M77.11 Active 636128467 Problem Major depressive disorder wi th single episode, remission status unspecified F32.9 Active 34306896 Problem Chronic obstructive pulmonary disease, unspecified COPD ty pe J44.9 Active 01723135 Problem Right elbow pain M25.521 Active 267 365634 Problem Pain in female genitalia on intercourse N94.10 Active 46757989 Problem Panic disorder with agoraphobia and moderate panic attacks F40.01 Active 4611343 Problem Bipolar II disorder F31.81 Active 05882902 Problem Well woman exam with routine gynecological exam Z0 1.419 Active 583601819 Problem Attention deficit hyperactivity disorder (ADHD), combi lars type F90.2 Active 42410793 Problem ADHD (attention deficit hyperactivity disorder), inattentive type F90.0 Active 25275378 ALLERGIES No Information ENCOUNTERS Encounter Location Date Diagnosis [facility] [address] [facility] [id number] [address] [place] [phone] Aug, [facility] [address] [facility] [id number] [address] [place] [phone] Jul, Chronic obstructive pulmonar y disease, unspecified COPD type J44.9 [facility] [address] [facility] [id number] [address] [place] [phone] Jun, [facility] [address] [facility] [id number] [address] [place] [phone] Jun, [facility] [address] [facility] [id number] [address] [place] [phone] May, [facility] [address] [facility] [id number] [address] [place] [phone] Apr, [facility] [address] [facility] [id number] [address] [place] [address] Apr, Screening for diabetes melli tus Z13.1 ; Screening for lipid disorders Z13.220 and Post-menopause Z78.0 [facility] [address] [facility] [id number] [address] [place] [phone] Apr, Well woman exam Z01.419 ; Pa in in female genitalia on intercourse N94.10 ; Well woman exam with routine gynecological exam Z01.419 ; Major depressive disorder with current active episode, unspecified depression episode severity, unspecified whether recurrent F32.9 ; Post-menopause Z78.0 ; Screening for diabetes mellitus Z13.1 and Screening for lipid disorders Z13.220 [facility] [address] [facility] [id number] [address] [place] [phone] Nov, [facility] [address] [facility] [id number] [address] [place] [phone] Nov, [facility] [address] [facility] [id number] [address] [place] [address] Oct, Sore throat J02.9 and Nasoph aryngitis acute J00 [facility] [address] [facility] [id number] [address] [place] [phone] May, Chronic obstructive pulmonar y disease, unspecified COPD type J44.9 [facility] [address] [facility] [id number] [address] [place] [phone] May, [place] [address] [facility] [id number] [address] [place] [address] Apr, Chronic obstructive pulmonar y disease, unspecified COPD type J44.9 [facility] [address] [facility] [id number] [address] [place] [phone] Apr, Chronic obstructive pulmonar y disease, unspecified COPD type J44.9 [facility] [address] [id number] [address] [place] [address] Mar, [facility] [address] [id number] [address] [place] [id number] Mar, Dental caries K02.9 [facility] [address] [id number] [address] [place] [address] January, Menopause Z78.0 [facility] [address] [id number] [address] [place] [phone] Dec, [facility] [address] [id number] [address] [place] [address] Dec, [facility] [address] [id number] [address] [place] [phone] Dec, [facility] [address] [id number] [address] [place] [address] Dec, [facility] [address] [id number] [address] [place] [address] Nov, Chronic obstructive pulmonar y disease, unspecified COPD type J44.9 ; Right elbow pain M25.521 ; Menopause Z78.0 and Bipolar II disorder F31.81 [facility] [address] [id number] [address] [place] [address] Oct, [facility] [address] [id number] [address] [place] [phone] Oct, [facility] [address] [facility] [id number] [address] [place] [phone] Oct, Bipolar II disorder F31.81 ; Panic disorder with agoraphobia and moderate panic attacks F40.01 and Attention deficit hyperactivity disorder (ADHD), combined type F90.2 [facility] [address] [id number] [address] [place] [phone] Oct, Lateral epicondylitis of rig ht elbow M77.11 [facility] [address] [id number] [address] [place] [phone] Sep, Lateral epicondylitis of rig ht elbow M77.11 and Major depressive disorder with single episode, remission status unspecified F32.9 [facility] [address] [id number] [address] [place] [phone] 07 Aug, 2016 Lateral epicondylitis of rig ht elbow M77.11 [facility] [address] [id number] [address] [place] [phone] 16 Jul, 2016 Menopause Z78.0 [place] [address] [id number] [address] [place] [address] 12 May, 2016 [place] [address] [id number] [address] [place] [phone] 08 May, 2016 Well woman exam with routine gynecological exam Z01.419 ; Lateral epicondylitis of right elbow M77.11 and Chronic obstructive pulmonary disease, unspecified COPD type J44.9 [place] [id number] [id number] [address] [place] [address] Mar, Major depressive disorder wi th single episode, remission status unspecified F32.9 ; Chronic obstructive pulmonary disease, unspecified COPD type J44.9 ; Right elbow pain M25.521 and Menopause Z78.0 [facility] [address] [id number] [address] [place] [address] Mar, [place] [address] [id number] [address] [place] [address] Feb, Right elbow pain M25.521 and Chronic obstructive pulmonary disease, unspecified COPD type J44.9 [place] [address] [id number] [address] [place] [address] January, Anxiety disorder, unspecifie d F41.9 and Major depressive disorder, single episode, unspecified F32.9 [facility] [address] [id number] [address] [place] [phone] Nov, [facility] [address] [facility] [id number] [address] [place] [phone] Jun, [facility] [address] [facility] [id number] [place] [address] Jun, [facility] [address] [facility] [id number] [address] [place] [phone] Jun, [facility] [address] [facility] [id number] [place] [phone] May, [facility] [address] [facility] [id number] [address] [place] [address] May, Sinusitis 473.9 [facility] [address] [place] [id number] [place] [address] May, [facility] [address] [place] [id number] [place] [address] Apr, Dysuria 788.1 ; Urinary trac t infection 599.0 ; Depression 311 ; Anxiety 300.00 and Muscle spasm 728.85 [facility] [address] [place] [id number] [address] [place] [address] Apr, [facility] [address] [place] [id number] [address] [place] [phone] Apr, [facility] [address] [place] [id number] [address] [place] [phone] Apr, [facility] [address] [place] [id number] [address] [place] [phone] Mar, Lateral epicondylitis of rig ht elbow 726.32 [facility] [address] [facility] [id number] [address] [place] [phone] Mar, [facility] [address] [place] [id number] [address] [place] [phone] Feb, Anxiety 300.00 ; Tendonitis 726.90 ; Back spasm 724.8 and Lumbago 724.2 [facility] [address] [id number] [address] [place] [phone] 14 Dec, 2014 [facility] [address] [id number] [address] [place] [phone] Dec, [facility] [address] [id number] [address] [place] [phone] Jun, [facility] [address] [id number] [address] [place] [phone] Jun, [facility] [address] [id number] [address] [place] [phone] Dec, [facility] [address] [id number] [address] [place] [phone] Dec, [facility] [address] [id number] [address] [place] [phone] Jun, [facility] [address] [id number] [address] [place] [phone] Jun, IMMUNIZATIONS No Known Immunizations SOCIAL HISTORY Never Assessed REASON FOR VISIT Refill Request PLAN OF CARE VITAL SIGNS MEDICATIONS Medication Instructions Dosage Frequency Start Date End Date Duration S tatus Symbicort 160-4.5 MCG/ACT Inhalation Twice a day INHALE TWO PUFFS BY MOUTH TWICE DAILY 12h Active RESULTS No Results PROCEDURES No Known procedures INSTRUCTIONS MEDICATIONS ADMINISTERED No Known Medications MEDICAL (GENERAL) HISTORY Type Description Date Medical History depression Medical History elbow pain Surgical History section 1988, 1985 Surgical History cataract both eyes Surgical History left arm rotator cuff Hospitalization History surgical only
--- OUTSIDE RECORDS SUMMARY | 2020-03-13 07:29 | XMS REPORT ---
Author Author Bailey MOURA [facility] Address [address] [place] [address] Care Team Providers Care Stock Letterer Name Role Phone DAVID MOURA Unavailable PROBLEMS Type Condition ICD9-CM Code [id number] Code Onset Dates Condition S tatus SNOMED Code Problem Menopause Z78.0 Active 723449230 Problem Lateral epicondylitis of right elbow M77.11 Active 188712962 Problem Major depressive disorder wi th single episode, remission status unspecified F32.9 Active 00493326 Problem Chronic obstructive pulmonary disease, unspecified COPD ty pe J44.9 Active 99912163 Problem Right elbow pain M25.521 Active 267 169972 Problem Pain in female genitalia on intercourse N94.10 Active 54614602 Problem Panic disorder with agoraphobia and moderate panic attacks F40.01 Active 4451655 Problem Bipolar II disorder F31.81 Active 71643478 Problem Well woman exam with routine gynecological exam Z0 1.419 Active 913828751 Problem Attention deficit hyperactivity disorder (ADHD), combi lars type F90.2 Active 60861793 Problem ADHD (attention deficit hyperactivity disorder), inattentive type F90.0 Active 78492964 ALLERGIES No Information ENCOUNTERS Encounter Location Date Diagnosis [facility] [address] [facility] [id number] [address] [place] [phone] May, [facility] [address] [facility] [id number] [address] [place] [phone] Apr, [facility] [address] [place] [id number] [address] [place] [address] Apr, Screening for diabetes melli tus Z13.1 ; Screening for lipid disorders Z13.220 and Post-menopause Z78.0 [facility] [address] [facility] [id number] [address] [place] [address] 16 Aug, 2018 Well woman exam Z01.419 ; Pa in in female genitalia on intercourse N94.10 ; Well woman exam with routine gynecological exam Z01.419 ; Major depressive disorder with current active episode, unspecified depression episode severity, unspecified whether recurrent F32.9 ; Post-menopause Z78.0 ; Screening for diabetes mellitus Z13.1 and Screening for lipid disorders Z13.220 [facility] [address] [id number] [address] [place] [address] Nov, [facility] [address] [id number] [address] [place] [address] Nov, [facility] [address] [facility] [id number] [address] [place] [address] Oct, Sore throat J02.9 and Nasoph aryngitis acute J00 [facility] [address] [id number] [address] [place] [address] May, Chronic obstructive pulmonar y disease, unspecified COPD type J44.9 [facility] [address] [id number] [address] [place] [address] May, [facility] [address] [id number] [address] [place] [address] Apr, Chronic obstructive pulmonar y disease, unspecified COPD type J44.9 [facility] [address] [id number] [address] [place] [address] Apr, Chronic obstructive pulmonar y disease, unspecified COPD type J44.9 [facility] [address] [id number] [address] [place] [address] Mar, [facility] [address] [id number] [address] [place] [id number] Mar, Dental caries K02.9 [facility] [address] [id number] [address] [place] [address] January, Menopause Z78.0 [facility] [address] [id number] [address] [place] [address] Dec, [facility] [address] [id number] [address] [place] [address] Dec, [facility] [address] [facility] [id number] [address] [place] [address] Dec, [facility] [address] [facility] [id number] [address] [place] [address] Dec, [facility] [address] [facility] [id number] [address] [place] [address] Nov, Chronic obstructive pulmonar y disease, unspecified COPD type J44.9 ; Right elbow pain M25.521 ; Menopause Z78.0 and Bipolar II disorder F31.81 [facility] [address] [facility] [id number] [address] [place] [address] Oct, [facility] [address] [place] [id number] [address] [place] [phone] Oct, [facility] [address] [facility] [id number] [address] [place] [address] Oct, Bipolar II disorder F31.81 ; Panic disorder with agoraphobia and moderate panic attacks F40.01 and Attention deficit hyperactivity disorder (ADHD), combined type F90.2 [facility] [address] [facility] [id number] [address] [place] [address] Oct, Lateral epicondylitis of rig ht elbow M77.11 [facility] [address] [facility] [id number] [address] [place] [address] Sep, Lateral epicondylitis of rig ht elbow M77.11 and Major depressive disorder with single episode, remission status unspecified F32.9 [facility] [address] [facility] [id number] [address] [place] [address] Aug, Lateral epicondylitis of rig ht elbow M77.11 [facility] [address] [facility] [id number] [address] [place] [address] Jul, Menopause Z78.0 [facility] [address] [id number] [address] [place] [address] May, [facility] [address] [id number] [address] [place] [address] 08 May, 2016 Well woman exam with routine gynecological exam Z01.419 ; Lateral epicondylitis of right elbow M77.11 and Chronic obstructive pulmonary disease, unspecified COPD type J44.9 [facility] [address] [id number] [address] [place] [address] Mar, Major depressive disorder wi th single episode, remission status unspecified F32.9 ; Chronic obstructive pulmonary disease, unspecified COPD type J44.9 ; Right elbow pain M25.521 and Menopause Z78.0 [facility] [address] [id number] [address] [place] [address] Mar, [facility] [address] [id number] [address] [place] [address] Feb, Right elbow pain M25.521 and Chronic obstructive pulmonary disease, unspecified COPD type J44.9 [facility] [address] [id number] [address] [place] [address] January, Anxiety disorder, unspecifie d F41.9 and Major depressive disorder, single episode, unspecified F32.9 [facility] [address] [id number] [address] [place] [address] Nov, [facility] [address] [id number] [address] [place] [address] Jun, [facility] [address] [id number] [address] [place] [address] Jun, [facility] [address] [id number] [address] [place] [address] Jun, [facility] [address] [id number] [address] [place] [address] May, [facility] [address] [place] [id number] [address] [place] [address] May, Sinusitis 473.9 [facility] [address] [place] [id number] [place] [address] May, [facility] [address] [place] [id number] [place] [address] Apr, Dysuria 788.1 ; Urinary trac t infection 599.0 ; Depression 311 ; Anxiety 300.00 and Muscle spasm 728.85 [facility] [address] [place] [id number] [place] [address] Apr, [facility] [address] [address] Apr, [facility] [address] [address] Apr, [facility] [address] [address] Mar, Lateral epicondylitis of rig ht elbow 726.32 [facility] [address] [address] Mar, [facility] [address] [address] Feb, Anxiety 300.00 ; Tendonitis 726.90 ; Back spasm 724.8 and Lumbago 724.2 [facility] [address] [address] Dec, [facility] [address] [address] Dec, [facility] [address] [address] Jun, [facility] [address] [place] [id number] [place] [address] Jun, [facility] [address] [address] Dec, [facility] [address] [facility] [id number] [address] [place] [address] Dec, [facility] [address] [facility] [id number] [address] [place] [address] Jun, [facility] [address] [facility] [id number] [address] [place] [address] Jun, IMMUNIZATIONS No Known Immunizations SOCIAL HISTORY Never Assessed REASON FOR VISIT PALS PLAN OF CARE VITAL SIGNS MEDICATIONS Medication Instructions Dosage Frequency Start Date End Date Duration S tatus Prozac 40 mg Orally Once a day 1 capsule in the morning 24h 90 days Active Prozac 20 mg Orally Once a day 1 capsule in the morning 24h 90 days Active RESULTS No Results PROCEDURES No Known procedures INSTRUCTIONS MEDICATIONS ADMINISTERED No Known Medications MEDICAL (GENERAL) HISTORY Type Description Date Medical History depression Medical History elbow pain Surgical History section 1988, 1985 Surgical History cataract both eyes Surgical History left arm rotator cuff Hospitalization History surgical only
--- OUTSIDE RECORDS SUMMARY | 2020-03-13 07:29 | XMS REPORT ---
Author Author Bailey MOURA [facility] Address [address] [place] [address] Care Team Providers Care Muskrat Trapper Name Role Phone DAVID MOURA Unavailable PROBLEMS Type Condition ICD9-CM Code [id number] Code Onset Dates Condition S tatus SNOMED Code Problem Menopause Z78.0 Active 143729766 Problem Lateral epicondylitis of right elbow M77.11 Active 603591062 Problem Major depressive disorder wi th single episode, remission status unspecified F32.9 Active 44950590 Problem Chronic obstructive pulmonary disease, unspecified COPD ty pe J44.9 Active 10246212 Problem Right elbow pain M25.521 Active 267 233625 Problem Pain in female genitalia on intercourse N94.10 Active 16441952 Problem Panic disorder with agoraphobia and moderate panic attacks F40.01 Active 5007174 Problem Bipolar II disorder F31.81 Active 56008367 Problem Well woman exam with routine gynecological exam Z0 1.419 Active 499560460 Problem Attention deficit hyperactivity disorder (ADHD), combi lars type F90.2 Active 33888860 Problem ADHD (attention deficit hyperactivity disorder), inattentive type F90.0 Active 32773248 ALLERGIES No Information ENCOUNTERS Encounter Location Date Diagnosis [facility] [address] [facility] [id number] [address] [place] [phone] May, [facility] [address] [facility] [id number] [address] [place] [address] Apr, [facility] [address] [place] [id number] [address] [place] [address] Apr, Screening for diabetes melli tus Z13.1 ; Screening for lipid disorders Z13.220 and Post-menopause Z78.0 [facility] [address] [facility] [id number] [address] [place] [address] 16 Aug, 2018 Well woman exam Z01.419 ; Pa in in female genitalia on intercourse N94.10 ; Well woman exam with routine gynecological exam Z01.419 ; Major depressive disorder with current active episode, unspecified depression episode severity, unspecified whether recurrent F32.9 ; Post-menopause Z78.0 ; Screening for diabetes mellitus Z13.1 and Screening for lipid disorders Z13.220 [facility] [address] [id number] [address] [place] [address] Nov, [facility] [address] [id number] [address] [place] [phone] Nov, [facility] [address] [facility] [id number] [address] [place] [phone] Oct, Sore throat J02.9 and Nasoph aryngitis acute J00 [facility] [address] [id number] [address] [place] [address] May, Chronic obstructive pulmonar y disease, unspecified COPD type J44.9 [facility] [address] [id number] [address] [place] [phone] May, [facility] [address] [id number] [address] [place] [address] Apr, Chronic obstructive pulmonar y disease, unspecified COPD type J44.9 [facility] [address] [id number] [address] [place] [address] Apr, Chronic obstructive pulmonar y disease, unspecified COPD type J44.9 [facility] [address] [id number] [address] [place] [address] Mar, [facility] [address] [id number] [address] [place] [id number] Mar, Dental caries K02.9 [facility] [address] [id number] [address] [place] [address] January, Menopause Z78.0 [facility] [address] [id number] [address] [place] [phone] Dec, [facility] [address] [id number] [address] [place] [phone] Dec, [facility] [address] [facility] [id number] [address] [place] [address] Dec, [facility] [address] [facility] [id number] [address] [place] [phone] Dec, [facility] [address] [facility] [id number] [address] [place] [address] Nov, Chronic obstructive pulmonar y disease, unspecified COPD type J44.9 ; Right elbow pain M25.521 ; Menopause Z78.0 and Bipolar II disorder F31.81 [facility] [address] [facility] [id number] [address] [place] [address] Oct, [facility] [address] [place] [id number] [address] [place] [address] Oct, [facility] [address] [facility] [id number] [address] [place] [address] Oct, Bipolar II disorder F31.81 ; Panic disorder with agoraphobia and moderate panic attacks F40.01 and Attention deficit hyperactivity disorder (ADHD), combined type F90.2 [facility] [address] [facility] [id number] [address] [place] [address] Oct, Lateral epicondylitis of rig ht elbow M77.11 [facility] [address] [facility] [id number] [address] [place] [address] Sep, Lateral epicondylitis of rig ht elbow M77.11 and Major depressive disorder with single episode, remission status unspecified F32.9 [facility] [address] [facility] [id number] [address] [place] [address] Aug, Lateral epicondylitis of rig ht elbow M77.11 [facility] [address] [facility] [id number] [address] [place] [address] Jul, Menopause Z78.0 [facility] [address] [id number] [address] [place] [address] May, [facility] [address] [id number] [address] [place] [address] 08 May, 2016 Well woman exam with routine gynecological exam Z01.419 ; Lateral epicondylitis of right elbow M77.11 and Chronic obstructive pulmonary disease, unspecified COPD type J44.9 [facility] [address] [id number] [address] [place] [address] Mar, Major depressive disorder wi th single episode, remission status unspecified F32.9 ; Chronic obstructive pulmonary disease, unspecified COPD type J44.9 ; Right elbow pain M25.521 and Menopause Z78.0 [facility] [address] [id number] [address] [place] [address] Mar, [facility] [address] [id number] [address] [place] [address] Feb, Right elbow pain M25.521 and Chronic obstructive pulmonary disease, unspecified COPD type J44.9 [facility] [address] [id number] [address] [place] [address] January, Anxiety disorder, unspecifie d F41.9 and Major depressive disorder, single episode, unspecified F32.9 [facility] [address] [id number] [address] [place] [address] Nov, [facility] [address] [id number] [address] [place] [address] Jun, [facility] [address] [id number] [address] [place] [phone] Jun, [facility] [address] [id number] [address] [place] [address] Jun, [facility] [address] [id number] [address] [place] [address] May, [facility] [address] [place] [id number] [address] [place] [address] May, Sinusitis 473.9 [facility] [address] [place] [id number] [place] [address] May, [facility] [address] [place] [id number] [place] [address] Apr, Dysuria 788.1 ; Urinary trac t infection 599.0 ; Depression 311 ; Anxiety 300.00 and Muscle spasm 728.85 [facility] [address] [place] [id number] [place] [address] Apr, [facility] [address] [address] Apr, [facility] [address] [address] Apr, [facility] [address] [address] Mar, Lateral epicondylitis of rig ht elbow 726.32 [facility] [address] [address] Mar, [facility] [address] [address] Feb, Anxiety 300.00 ; Tendonitis 726.90 ; Back spasm 724.8 and Lumbago 724.2 [facility] [address] [address] Dec, [facility] [address] [address] Dec, [facility] [address] [address] Jun, [facility] [address] [place] [id number] [place] [address] Jun, [facility] [address] [address] Dec, [facility] [address] [facility] [id number] [address] [place] [address] Dec, [facility] [address] [facility] [id number] [address] [place] [phone] Jun, [facility] [address] [facility] [id number] [address] [place] [address] Jun, IMMUNIZATIONS No Known Immunizations SOCIAL HISTORY Never Assessed REASON FOR VISIT Lab (walk-in) PLAN OF CARE VITAL SIGNS MEDICATIONS Unknown Medications RESULTS No Results PROCEDURES Procedure Date Ordered Result Body Site Hemoglobin Test Send Out 0 dollar Apr 26, 2018 LIPID PANEL Apr 26, 2018 COMPLETE CBC W/AUTO DIFF WBC Apr 26, 2018 COMPREHEN METABOLIC PANEL Apr 26, 2018 ASSAY OF ESTRADIOL Apr 26, 2018 INSTRUCTIONS MEDICATIONS ADMINISTERED No Known Medications MEDICAL (GENERAL) HISTORY Type Description Date Medical History depression Medical History elbow pain Surgical History section 1985 Surgical History cataract both eyes Surgical History left arm rotator cuff Hospitalization History surgical only
--- OUTSIDE RECORDS SUMMARY | 2020-03-13 07:29 | XMS REPORT ---
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 Name Role Phone DAVID MOURA Unavailable PROBLEMS Type Condition ICD9-CM Code [id number] Code Onset Dates Condition S tatus SNOMED Code Problem Menopause Z78.0 Active 885809966 Problem Lateral epicondylitis of right elbow M77.11 Active 834759343 Problem Major depressive disorder wi th single episode, remission status unspecified F32.9 Active 42339452 Problem Chronic obstructive pulmonary disease, unspecified COPD ty pe J44.9 Active 00520565 Problem Right elbow pain M25.521 Active 267 248184 Problem Pain in female genitalia on intercourse N94.10 Active 69184567 Problem Panic disorder with agoraphobia and moderate panic attacks F40.01 Active 0035826 Problem Bipolar II disorder F31.81 Active 57139301 Problem Well woman exam with routine gynecological exam Z0 1.419 Active 596479853 Problem Attention deficit hyperactivity disorder (ADHD), combi lars type F90.2 Active 92651690 Problem ADHD (attention deficit hyperactivity disorder), inattentive type F90.0 Active 02433001 ALLERGIES No Information ENCOUNTERS Encounter Location Date Diagnosis [facility] [address] [facility] [id number] [address] [place] [phone] Aug, [facility] [address] [facility] [id number] [address] [place] [phone] 15 Jul, 2018 Chronic obstructive pulmonar y disease, unspecified COPD type J44.9 [facility] [address] [facility] [id number] [address] [place] [address] 13 Jul, 2018 Chronic obstructive pulmonar y disease, unspecified COPD type J44.9 [facility] [address] [facility] [id number] [address] [place] [phone] Jun, [facility] [address] [facility] [id number] [address] [place] [phone] Jun, [facility] [address] [facility] [id number] [address] [place] [phone] May, [facility] [address] [facility] [id number] [address] [place] [address] Apr, [facility] [address] [facility] [id number] [address] [place] [address] Apr, Screening for diabetes melli tus Z13.1 ; Screening for lipid disorders Z13.220 and Post-menopause Z78.0 [facility] [address] [facility] [id number] [address] [place] [address] Apr, Well woman exam Z01.419 ; Pa in in female genitalia on intercourse N94.10 ; Well woman exam with routine gynecological exam Z01.419 ; Major depressive disorder with current active episode, unspecified depression episode severity, unspecified whether recurrent F32.9 ; Post-menopause Z78.0 ; Screening for diabetes mellitus Z13.1 and Screening for lipid disorders Z13.220 [facility] [address] [facility] [id number] [address] [place] [phone] Nov, [facility] [address] [facility] [id number] [address] [place] [phone] Nov, [facility] [address] [facility] [id number] [address] [place] [address] Oct, Sore throat J02.9 and Nasoph aryngitis acute J00 [facility] [address] [facility] [id number] [address] [place] [address] May, Chronic obstructive pulmonar y disease, unspecified COPD type J44.9 [facility] [address] [facility] [id number] [address] [place] [phone] May, [facility] [address] [facility] [id number] [address] [place] [phone] Apr, Chronic obstructive pulmonar y disease, unspecified COPD type J44.9 [facility] [address] [id number] [address] [place] [phone] Apr, Chronic obstructive pulmonar y disease, unspecified COPD type J44.9 [facility] [address] [id number] [address] [place] [address] Mar, [facility] [address] [id number] [address] [place] [id number] Mar, Dental caries K02.9 [facility] [address] [facility] [id number] [address] [place] [address] January, Menopause Z78.0 [facility] [address] [facility] [id number] [address] [place] [phone] Dec, [facility] [address] [facility] [id number] [address] [place] [phone] Dec, [facility] [address] [facility] [id number] [address] [place] [address] Dec, [facility] [address] [facility] [id number] [address] [place] [phone] Dec, [facility] [address] [facility] [id number] [address] [place] [phone] Nov, Chronic obstructive pulmonar y disease, unspecified COPD type J44.9 ; Right elbow pain M25.521 ; Menopause Z78.0 and Bipolar II disorder F31.81 [facility] [address] [id number] [address] [place] [phone] Oct, [facility] [address] [facility] [id number] [address] [place] [phone] Oct, [facility] [address] [facility] [id number] [address] [place] [address] Oct, Bipolar II disorder F31.81 ; Panic disorder with agoraphobia and moderate panic attacks F40.01 and Attention deficit hyperactivity disorder (ADHD), combined type F90.2 [facility] [address] [id number] [address] [place] [address] Oct, Lateral epicondylitis of rig ht elbow M77.11 [facility] [address] [id number] [address] [place] [address] Sep, Lateral epicondylitis of rig ht elbow M77.11 and Major depressive disorder with single episode, remission status unspecified F32.9 [facility] [address] [id number] [address] [place] [phone] Aug, Lateral epicondylitis of rig ht elbow M77.11 [facility] [address] [id number] [address] [place] [address] Jul, Menopause Z78.0 [place] [address] [id number] [address] [place] [phone] May, [place] [address] [id number] [address] [place] [address] 08 May, 2016 Well woman exam with routine gynecological exam Z01.419 ; Lateral epicondylitis of right elbow M77.11 and Chronic obstructive pulmonary disease, unspecified COPD type J44.9 [facility] [address] [id number] [address] [place] [address] Mar, Major depressive disorder wi th single episode, remission status unspecified F32.9 ; Chronic obstructive pulmonary disease, unspecified COPD type J44.9 ; Right elbow pain M25.521 and Menopause Z78.0 [facility] [address] [id number] [address] [place] [address] Mar, [facility] [address] [id number] [address] [place] [address] Feb, Right elbow pain M25.521 and Chronic obstructive pulmonary disease, unspecified COPD type J44.9 [facility] [address] [id number] [address] [place] [address] January, Anxiety disorder, unspecifie d F41.9 and Major depressive disorder, single episode, unspecified F32.9 [facility] [address] [id number] [address] [place] [phone] Nov, [facility] [address] [id number] [address] [place] [phone] Jun, [facility] [address] [id number] [address] [place] [phone] Jun, [facility] [address] [id number] [address] [place] [phone] Jun, [facility] [address] [id number] [address] [place] [phone] May, [facility] [address] [id number] [address] [place] [address] May, Sinusitis 473.9 [facility] [address] [id number] [address] [place] [phone] May, [facility] [address] [id number] [address] [place] [address] Apr, Dysuria 788.1 ; Urinary trac t infection 599.0 ; Depression 311 ; Anxiety 300.00 and Muscle spasm 728.85 [facility] [address] [id number] [address] [place] [phone] Apr, [facility] [address] [id number] [address] [place] [phone] Apr, [facility] [address] [id number] [address] [place] [phone] Apr, [facility] [address] [facility] [id number] [address] [place] [phone] Mar, Lateral epicondylitis of rig ht elbow 726.32 [facility] [address] [id number] [address] [place] [id number] Mar, [facility] [address] [facility] [id number] [address] [place] [address] Feb, Anxiety 300.00 ; Tendonitis 726.90 ; Back spasm 724.8 and Lumbago 724.2 [facility] [address] [id number] [address] [place] [phone] Dec, [facility] [address] [id number] [address] [place] [id number] Dec, [facility] [address] [id number] [address] [place] [phone] Jun, [facility] [address] [id number] [address] [place] [phone] Jun, [facility] [address] [id number] [address] [place] [phone] Dec, [facility] [address] [id number] [address] [place] [phone] Dec, [facility] [address] [id number] [address] [place] [phone] Jun, [facility] [address] [id number] [address] [place] [phone] Jun, IMMUNIZATIONS No Known Immunizations SOCIAL HISTORY Never Assessed REASON FOR VISIT PALS-[facility] PLAN OF CARE VITAL SIGNS MEDICATIONS Medication [...]
--- OUTSIDE RECORDS SUMMARY | 2020-03-13 07:29 | XMS REPORT ---
Author Author Bailey King Doctor Organization [facility] Address Unknown Phone Unavailable Care Team Providers Care Bait Maker Name Role Phone Migration, Doctor Unavailable Unavailable PROBLEMS Type Condition ICD9-CM Code VTZ34-FC Code Onset Dates Condition S tatus SNOMED Code Problem Menopause Z78.0 Active 931625852 Problem Chronic obstructive pulmonary disease, unspecified COPD ty pe J44.9 Active 53974576 Problem ADHD (attention deficit hyperactivity disorder), inattentive type F90.0 Active 87632134 Problem Bipolar affective disorder, currently depressed, moderate F31.32 Active 893429020 Problem Major depressive disorder wi th single episode, remission status unspecified F32.9 Active 50117858 Problem Alcohol abuse F10.10 Active 252056 05 Problem Attention deficit hyperactivity disorder (ADHD), combi lars type F90.2 Active 49577506 Problem Panic disorder with agoraphobia and moderate panic attacks F40.01 Active 7163944 Problem Bipolar II disorder F31.81 Active 33016884 Problem Alcohol consumption binge drinking F10.10 Active 450936082 ALLERGIES No Information ENCOUNTERS Encounter Location Date Diagnosis [facility] [address] [facility] [id number] [address] [place] [phone] Dec, Bipolar affective disorder, currently depressed, moderate F31.32 ; Panic disorder with agoraphobia and moderate panic attacks F40.01 and Alcohol consumption binge drinking F10.10 [facility] [address] [facility] [id number] [address] [place] [phone] Nov, Chronic obstructive pulmonar y disease, unspecified COPD type J44.9 [facility] [address] [facility] [id number] [address] [place] [address] Nov, [address] [address] Nov, Screening for breast cancer Z12.31 [facility] [address] [facility] [id number] [address] [place] [address] Oct, Left arm pain M79.602 ; Scre ening for breast cancer Z12.31 ; Encounter for smoking cessation counseling Z71.6 ; Major depressive disorder with single episode, remission status unspecified F32.9 ; Panic disorder with agoraphobia and moderate panic attacks F40.01 and Neck pain M54.2 [facility] [address] [facility] [id number] [address] [place] [phone] Oct, Chronic obstructive pulmonar y disease, unspecified COPD type J44.9 [facility] [address] [id number] [address] [place] [address] Sep, [place] [address] [facility] [id number] [address] [place] [address] Jul, Chronic obstructive pulmonar y disease, unspecified COPD type J44.9 [place] [address] [facility] [id number] [address] [place] [address] Jul, Chronic obstructive pulmonar y disease, unspecified COPD type J44.9 [facility] [address] [facility] [id number] [address] [place] [address] Jun, [facility] [address] [facility] [id number] [address] [place] [phone] Jun, [facility] [address] [facility] [id number] [address] [place] [phone] May, [facility] [address] [facility] [id number] [address] [place] [id number] Apr, [facility] [address] [facility] [id number] [address] [place] [address] Apr, Screening for diabetes melli tus Z13.1 ; Screening for lipid disorders Z13.220 and Post-menopause Z78.0 [facility] [address] [id number] [address] [place] [address] 16 Apr, 2018 Pain in female genitalia on intercourse N94.10 ; Well woman exam with routine gynecological exam Z01.419 ; Major depressive disorder with current active episode, unspecified depression episode severity, unspecified whether recurrent F32.9 ; Post-menopause Z78.0 ; Screening for diabetes mellitus Z13.1 and Screening for lipid disorders Z13.220 [facility] [address] [id number] [address] [place] [address] Nov, [facility] [address] [facility] [id number] [address] [place] [phone] Nov, [facility] [address] [facility] [id number] [address] [place] [id number] Oct, Sore throat J02.9 and Nasoph aryngitis acute J00 [facility] [address] [facility] [id number] [address] [place] [phone] May, Chronic obstructive pulmonar y disease, unspecified COPD type J44.9 [facility] [address] [facility] [id number] [address] [place] [phone] May, [facility] [address] [id number] [address] [place] [phone] Apr, Chronic obstructive pulmonar y disease, unspecified COPD type J44.9 [facility] [address] [facility] [id number] [address] [place] [address] Apr, Chronic obstructive pulmonar y disease, unspecified COPD type J44.9 [facility] [address] [id number] [address] [place] [address] Mar, [facility] [address] [id number] [address] [place] [id number] Mar, Dental caries K02.9 [facility] [address] [facility] [id number] [address] [place] [address] January, Menopause Z78.0 [facility] [address] [facility] [id number] [address] [place] [phone] Dec, [facility] [address] [facility] [id number] [address] [place] [phone] Dec, [facility] [address] [id number] [address] [place] [id number] Dec, [facility] [address] [facility] [id number] [address] [place] [address] Dec, [facility] [address] [facility] [id number] [address] [place] [address] Nov, Chronic obstructive pulmonar y disease, unspecified COPD type J44.9 ; Right elbow pain M25.521 ; Menopause Z78.0 and Bipolar II disorder F31.81 [facility] [address] [facility] [id number] [address] [place] [address] Oct, [facility] [address] [facility] [id number] [address] [place] [address] Oct, [facility] [address] [facility] [id number] [address] [place] [id number] Oct, Bipolar II disorder F31.81 ; Panic disorder with agoraphobia and moderate panic attacks F40.01 and Attention deficit hyperactivity disorder (ADHD), combined type F90.2 [facility] [address] [facility] [id number] [address] [place] [id number] Oct, Lateral epicondylitis of rig ht elbow M77.11 [facility] [address] [facility] [id number] [address] [place] [address] Sep, Lateral epicondylitis of rig ht elbow M77.11 and Major depressive disorder with single episode, remission status unspecified F32.9 [facility] [address] [id number] [address] [place] [address] Aug, Lateral epicondylitis of rig ht elbow M77.11 [facility] [address] [facility] [id number] [address] [place] [address] Jul, Menopause Z78.0 [facility] [address] [facility] [id number] [address] [place] [address] May, [facility] [address] [id number] [address] [place] [id number] 08 May, 2016 Well woman exam with routine gynecological exam Z01.419 ; Lateral epicondylitis of right elbow M77.11 and Chronic obstructive pulmonary disease, unspecified COPD type J44.9 [facility] [address] [id number] [address] [place] [id number] Mar, Major depressive disorder wi th single episode, remission status unspecified F32.9 ; Chronic obstructive pulmonary disease, unspecified COPD type J44.9 ; Right elbow pain M25.521 and Menopause Z78.0 [facility] [address] [id number] [address] [place] [address] 05 Mar, 2016 [facility] [address] [id number] [address] [place] [address] Feb, Right elbow pain M25.521 and Chronic obstructive pulmonary disease, unspecified COPD type J44.9 [place] [address] [id number] [address] [place] [address] January, Anxiety disorder, unspecifie d F41.9 and Major depressive disorder, single episode, unspecified F32.9 [facility] [address] [id number] [address] [place] [phone] Nov, [place] [address] [id number] [address] [place] [address] Jun, [facility] [address] [id number] [address] [place] [phone] Jun, [facility] [address] [id number] [address] [place] [phone] Jun, [facility] [address] [id number] [address] [place] [id number] 18 May, 2015 [facility] [address] [id number] [address] [place] [address] 12 May, 2015 Sinusitis 473.9 [place] [address] [id number] [address] [place] [address] May, [facility] [address] [facility] [id number] [address] [place] [address] Apr, Dysuria 788.1 ; Urinary trac t infection 599.0 ; Depression 311 ; Anxiety 300.00 and Muscle spasm 728.85 [facility] [address] [id number] [address] [place] [address] Apr, [facility] [address] [facility] [id number] [address] [place] [address] Apr, [facility] [address] [place] [id number] [place] [address] Apr, [facility] [address] [place] [id number] [address] [place] [address] Mar, Lateral epicondylitis of rig ht elbow 726.32 [facility] [address] [place] [id number] [address] [place] [id number] Mar, [facility] [address] [place] [id number] [address] [place] [address] Feb, Anxiety 300.00 ; Tendonitis 726.90 ; Back spasm 724.8 and Lumbago 724.2 [facility] [address] [place] [id number] [address] [place] [address] Dec, [facility] [address] [place] [id number] [address] [place] [id number] Dec, [facility] [address] [place] [id number] [address] [place] [phone] Jun, [facility] [address] [place] [id number] [address] [place] [address] Jun, [facility] [address] [facility] [id number] [address] [place] [address] Dec, [facility] [address] [place] [id number] [address] [place] [phone] Dec, [facility] [address] [facility] [id number] [address] [place] [phone] Jun, [facility] [address] [facility] [id number] [address] [place] [phone] Jun, IMMUNIZATIONS No Known Immunizations SOCIAL HISTORY Never Assessed REASON FOR VISIT EMR-[facility] [place] PLAN OF CARE VITAL SIGNS MEDICATIONS Unknown Medications RESULTS No Results PROCEDURES No Known procedures INSTRUCTIONS MEDICATIONS ADMINISTERED No Known Medications MEDICAL (GENERAL) HISTORY Type Description Date Medical History depression Medical History elbow pain Surgical History section 1988, 1985 Surgical History cataract both eyes Surgical History left arm rotator cuff Hospitalization History surgical only
--- OUTSIDE RECORDS SUMMARY | 2020-03-13 07:29 | XMS REPORT ---
Author Author Bailey MOURA [facility] Address [address] [place] [address] Care Team Providers Care Cognos Administrator Name Role Phone DAVID MOURA Unavailable PROBLEMS Type Condition ICD9-CM Code DVI30-PL Code Onset Dates Condition S tatus SNOMED Code Problem Menopause Z78.0 Active 149614137 Problem Lateral epicondylitis of right elbow M77.11 Active 906565220 Problem Major depressive disorder wi th single episode, remission status unspecified F32.9 Active 53121499 Problem Chronic obstructive pulmonary disease, unspecified COPD ty pe J44.9 Active 31366718 Problem Right elbow pain M25.521 Active 267 091974 Problem Pain in female genitalia on intercourse N94.10 Active 90123578 Problem Panic disorder with agoraphobia and moderate panic attacks F40.01 Active 9486844 Problem Bipolar II disorder F31.81 Active 41639299 Problem Well woman exam with routine gynecological exam Z0 1.419 Active 243297562 Problem Attention deficit hyperactivity disorder (ADHD), combi lars type F90.2 Active 33539747 Problem ADHD (attention deficit hyperactivity disorder), inattentive type F90.0 Active 20503130 ALLERGIES No Information ENCOUNTERS Encounter Location Date Diagnosis [facility] [address] [facility] [id number] [address] [place] [phone] Jun, [facility] [address] [facility] [id number] [address] [place] [phone] May, [facility] [address] [facility] [id number] [address] [place] [address] Apr, [facility] [address] [facility] [id number] [address] [place] [address] Apr, Screening for diabetes melli tus Z13.1 ; Screening for lipid disorders Z13.220 and Post-menopause Z78.0 [facility] [address] [id number] [address] [place] [id number] 16 Apr, 2018 Well woman exam Z01.419 ; Pa in in female genitalia on intercourse N94.10 ; Well woman exam with routine gynecological exam Z01.419 ; Major depressive disorder with current active episode, unspecified depression episode severity, unspecified whether recurrent F32.9 ; Post-menopause Z78.0 ; Screening for diabetes mellitus Z13.1 and Screening for lipid disorders Z13.220 [facility] [address] [facility] [id number] [address] [place] [address] Nov, [facility] [address] [facility] [id number] [address] [place] [id number] Nov, [facility] [address] [facility] [id number] [address] [place] [phone] Oct, Sore throat J02.9 and Nasoph aryngitis acute J00 [facility] [address] [facility] [id number] [address] [place] [phone] May, Chronic obstructive pulmonar y disease, unspecified COPD type J44.9 [facility] [address] [facility] [id number] [address] [place] [phone] May, [facility] [address] [facility] [id number] [address] [place] [phone] Apr, Chronic obstructive pulmonar y disease, unspecified COPD type J44.9 [facility] [address] [facility] [id number] [address] [place] [id number] Apr, Chronic obstructive pulmonar y disease, unspecified COPD type J44.9 [facility] [address] [facility] [id number] [address] [place] [id number] Mar, [facility] [address] [id number] [address] [place] [id number] Mar, Dental caries K02.9 [facility] [address] [facility] [id number] [address] [place] [phone] January, Menopause Z78.0 [facility] [address] [id number] [address] [place] [phone] Dec, [facility] [address] [id number] [address] [place] [phone] Dec, [facility] [address] [id number] [address] [place] [phone] Dec, [facility] [address] [id number] [address] [place] [phone] Dec, [facility] [address] [id number] [address] [place] [address] Nov, Chronic obstructive pulmonar y disease, unspecified COPD type J44.9 ; Right elbow pain M25.521 ; Menopause Z78.0 and Bipolar II disorder F31.81 [facility] [address] [id number] [address] [place] [phone] Oct, [facility] [address] [id number] [address] [place] [id number] Oct, [facility] [address] [id number] [address] [place] [id number] Oct, Bipolar II disorder F31.81 ; Panic disorder with agoraphobia and moderate panic attacks F40.01 and Attention deficit hyperactivity disorder (ADHD), combined type F90.2 [facility] [address] [id number] [address] [place] [address] Oct, Lateral epicondylitis of rig ht elbow M77.11 [facility] [address] [id number] [address] [place] [id number] Sep, Lateral epicondylitis of rig ht elbow M77.11 and Major depressive disorder with single episode, remission status unspecified F32.9 [facility] [address] [id number] [address] [place] [address] Aug, Lateral epicondylitis of rig ht elbow M77.11 [facility] [address] [id number] [address] [place] [id number] 16 Jul, 2016 Menopause Z78.0 [facility] [address] [id number] [address] [place] [phone] 12 May, 2016 [facility] [address] [id number] [address] [place] [id number] 08 May, 2016 Well woman exam with routine gynecological exam Z01.419 ; Lateral epicondylitis of right elbow M77.11 and Chronic obstructive pulmonary disease, unspecified COPD type J44.9 [facility] [address] [id number] [address] [place] [phone] Mar, Major depressive disorder wi th single episode, remission status unspecified F32.9 ; Chronic obstructive pulmonary disease, unspecified COPD type J44.9 ; Right elbow pain M25.521 and Menopause Z78.0 [facility] [address] [id number] [address] [place] [phone] Mar, [facility] [address] [id number] [address] [place] [phone] Feb, Right elbow pain M25.521 and Chronic obstructive pulmonary disease, unspecified COPD type J44.9 [facility] [address] [id number] [address] [place] [phone] January, Anxiety disorder, unspecifie d F41.9 and Major depressive disorder, single episode, unspecified F32.9 [facility] [address] [id number] [address] [place] [phone] Nov, [facility] [address] [id number] [address] [place] [phone] Jun, [facility] [address] [id number] [address] [place] [phone] Jun, [facility] [address] [id number] [address] [place] [phone] Jun, [facility] [address] [id number] [address] [place] [phone] May, [facility] [address] [id number] [address] [place] [phone] May, Sinusitis 473.9 [facility] [address] [facility] [id number] [address] [place] [phone] May, [facility] [address] [facility] [id number] [address] [place] [address] Apr, Dysuria 788.1 ; Urinary trac t infection 599.0 ; Depression 311 ; Anxiety 300.00 and Muscle spasm 728.85 [facility] [address] [id number] [address] [place] [phone] Apr, [facility] [address] [place] [id number] [address] [place] [phone] Apr, [facility] [address] [place] [id number] [place] [phone] Apr, [facility] [address] [place] [id number] [address] [place] [phone] Mar, Lateral epicondylitis of rig ht elbow 726.32 [facility] [address] [place] [id number] [address] [place] [phone] Mar, [facility] [address] [place] [id number] [address] [place] [phone] Feb, Anxiety 300.00 ; Tendonitis 726.90 ; Back spasm 724.8 and Lumbago 724.2 [facility] [address] [place] [id number] [address] [place] [phone] Dec, [facility] [address] [place] [id number] [place] [phone] Dec, [facility] [address] [facility] [id number] [address] [place] [phone] Jun, [facility] [address] [place] [id number] [place] [phone] Jun, [facility] [address] [facility] [id number] [address] [place] [phone] Dec, [facility] [address] [facility] [id number] [address] [place] [phone] Dec, [facility] [address] [facility] [id number] [address] [place] [phone] Jun, [facility] [address] [facility] [id number] [address] [place] [phone] Jun, IMMUNIZATIONS No Known Immunizations SOCIAL HISTORY Never Assessed REASON FOR VISIT Medication Request PLAN OF CARE VITAL SIGNS MEDICATIONS Medication Instructions Dosage Frequency Start Date End Date Duration S tatus Prozac 40 mg Orally Once a day 1 capsule in the morning 24h 30 days Active Prozac 20 mg Orally Once a day 1 capsule in the morning 24h 30 days Active RESULTS No Results PROCEDURES No Known procedures INSTRUCTIONS MEDICATIONS ADMINISTERED No Known Medications MEDICAL (GENERAL) HISTORY Type Description Date Medical History depression Medical History elbow pain Surgical History section 1988, 1985 Surgical History cataract both eyes Surgical History left arm rotator cuff Hospitalization History surgical only
--- OUTSIDE RECORDS SUMMARY | 2020-03-13 07:29 | XMS REPORT ---
Author Author Bailey MOURA [facility] Address [address] [place] [address] Care Team Providers Care Senior [employer] Et[employer] Developer Name Role Phone DAVID MOURA Unavailable PROBLEMS Type Condition ICD9-CM Code [id number] Code Onset Dates Condition S tatus SNOMED Code Problem Menopause Z78.0 Active 561557048 Problem Lateral epicondylitis of right elbow M77.11 Active 395383558 Problem Major depressive disorder wi th single episode, remission status unspecified F32.9 Active 03898872 Problem Chronic obstructive pulmonary disease, unspecified COPD ty pe J44.9 Active 79935406 Problem Right elbow pain M25.521 Active 267 913675 Problem Pain in female genitalia on intercourse N94.10 Active 47024514 Problem Panic disorder with agoraphobia and moderate panic attacks F40.01 Active 5645967 Problem Bipolar II disorder F31.81 Active 51644165 Problem Well woman exam with routine gynecological exam Z0 1.419 Active 404354616 Problem Attention deficit hyperactivity disorder (ADHD), combi lars type F90.2 Active 36954946 Problem ADHD (attention deficit hyperactivity disorder), inattentive type F90.0 Active 59446378 ALLERGIES No Information ENCOUNTERS Encounter Location Date Diagnosis [facility] [address] [facility] [id number] [address] [place] [phone] May, [facility] [address] [facility] [id number] [address] [place] [address] Apr, [facility] [address] [place] [id number] [address] [place] [address] Apr, Screening for diabetes melli tus Z13.1 ; Screening for lipid disorders Z13.220 and Post-menopause Z78.0 [facility] [address] [facility] [id number] [address] [place] [address] 16 Aug, 2018 Well woman exam Z01.419 ; Pa in in female genitalia on intercourse N94.10 ; Well woman exam with routine gynecological exam Z01.419 ; Major depressive disorder with current active episode, unspecified depression episode severity, unspecified whether recurrent F32.9 ; Post-menopause Z78.0 ; Screening for diabetes mellitus Z13.1 and Screening for lipid disorders Z13.220 [facility] [address] [id number] [address] [place] [address] Nov, [facility] [address] [id number] [address] [place] [address] Nov, [facility] [address] [facility] [id number] [address] [place] [id number] Oct, Sore throat J02.9 and Nasoph aryngitis acute J00 [facility] [address] [id number] [address] [place] [address] May, Chronic obstructive pulmonar y disease, unspecified COPD type J44.9 [facility] [address] [id number] [address] [place] [id number] May, [facility] [address] [id number] [address] [place] [id number] Apr, Chronic obstructive pulmonar y disease, unspecified COPD type J44.9 [facility] [address] [id number] [address] [place] [address] Apr, Chronic obstructive pulmonar y disease, unspecified COPD type J44.9 [facility] [address] [id number] [address] [place] [address] Mar, [facility] [address] [id number] [address] [place] [id number] Mar, Dental caries K02.9 [facility] [address] [id number] [address] [place] [address] January, Menopause Z78.0 [facility] [address] [id number] [address] [place] [address] Dec, [facility] [address] [id number] [address] [place] [id number] Dec, [facility] [address] [facility] [id number] [address] [place] [id number] Dec, [facility] [address] [facility] [id number] [address] [place] [address] Dec, [facility] [address] [facility] [id number] [address] [place] [address] Nov, Chronic obstructive pulmonar y disease, unspecified COPD type J44.9 ; Right elbow pain M25.521 ; Menopause Z78.0 and Bipolar II disorder F31.81 [facility] [address] [facility] [id number] [address] [place] [address] Oct, [facility] [address] [place] [id number] [address] [place] [id number] Oct, [facility] [address] [facility] [id number] [address] [place] [address] Oct, Bipolar II disorder F31.81 ; Panic disorder with agoraphobia and moderate panic attacks F40.01 and Attention deficit hyperactivity disorder (ADHD), combined type F90.2 [facility] [address] [facility] [id number] [address] [place] [address] Oct, Lateral epicondylitis of rig ht elbow M77.11 [facility] [address] [facility] [id number] [address] [place] [address] Sep, Lateral epicondylitis of rig ht elbow M77.11 and Major depressive disorder with single episode, remission status unspecified F32.9 [facility] [address] [facility] [id number] [address] [place] [address] Aug, Lateral epicondylitis of rig ht elbow M77.11 [facility] [address] [facility] [id number] [address] [place] [id number] Jul, Menopause Z78.0 [facility] [address] [id number] [address] [place] [address] May, [facility] [address] [id number] [address] [place] [id number] 08 May, 2016 Well woman exam with routine gynecological exam Z01.419 ; Lateral epicondylitis of right elbow M77.11 and Chronic obstructive pulmonary disease, unspecified COPD type J44.9 [facility] [address] [id number] [address] [place] [address] Mar, Major depressive disorder wi th single episode, remission status unspecified F32.9 ; Chronic obstructive pulmonary disease, unspecified COPD type J44.9 ; Right elbow pain M25.521 and Menopause Z78.0 [facility] [address] [id number] [address] [place] [address] Mar, [facility] [address] [id number] [address] [place] [address] Feb, Right elbow pain M25.521 and Chronic obstructive pulmonary disease, unspecified COPD type J44.9 [facility] [address] [id number] [address] [place] [address] January, Anxiety disorder, unspecifie d F41.9 and Major depressive disorder, single episode, unspecified F32.9 [facility] [address] [id number] [address] [place] [address] Nov, [facility] [address] [id number] [address] [place] [id number] Jun, [facility] [address] [id number] [address] [place] [phone] Jun, [facility] [address] [id number] [address] [place] [id number] Jun, [facility] [address] [id number] [address] [place] [address] May, [facility] [address] [place] [id number] [address] [place] [address] May, Sinusitis 473.9 [facility] [address] [place] [id number] [place] [address] May, [facility] [address] [place] [id number] [place] [address] Apr, Dysuria 788.1 ; Urinary trac t infection 599.0 ; Depression 311 ; Anxiety 300.00 and Muscle spasm 728.85 [facility] [address] [place] [id number] [place] [address] Apr, [facility] [address] [address] Apr, [facility] [address] [address] Apr, [facility] [address] [address] Mar, Lateral epicondylitis of rig ht elbow 726.32 [facility] [address] [address] Mar, [facility] [address] [address] Feb, Anxiety 300.00 ; Tendonitis 726.90 ; Back spasm 724.8 and Lumbago 724.2 [facility] [address] [address] Dec, [facility] [address] [address] Dec, [facility] [address] [address] Jun, [facility] [address] [place] [id number] [place] [address] Jun, [facility] [address] [address] Dec, [facility] [address] [facility] [id number] [address] [place] [address] Dec, [facility] [address] [facility] [id number] [address] [place] [id number] Jun, [facility] [address] [facility] [id number] [address] [place] [address] Jun, IMMUNIZATIONS No Known Immunizations SOCIAL HISTORY Never Assessed REASON FOR VISIT [employer] updated PLAN OF CARE VITAL SIGNS MEDICATIONS Unknown Medications RESULTS No Results PROCEDURES No Known procedures INSTRUCTIONS MEDICATIONS ADMINISTERED No Known Medications MEDICAL (GENERAL) HISTORY Type Description Date Medical History depression Medical History elbow pain Surgical History section 1988, 1985 Surgical History cataract both eyes Surgical History left arm rotator cuff Hospitalization History surgical only
--- OUTSIDE RECORDS SUMMARY | 2020-03-13 07:29 | XMS REPORT ---
Author Author Bailey King Doctor Organization [facility] Address Unknown Phone Unavailable Care Team Providers Care Intensive Care Specialist Name Role Phone Migration, Doctor Unavailable Unavailable PROBLEMS Type Condition ICD9-CM Code [id number] Code Onset Dates Condition S tatus SNOMED Code Problem Major depressive disorder wi th single episode, remission status unspecified F32.9 Active 58244000 Problem ADHD (attention deficit hyperactivity disorder), inattentive type F90.0 Active 28388773 Problem Attention deficit hyperactivity disorder (ADHD), combi lars type F90.2 Active 39632485 Problem Chronic obstructive pulmonary disease, unspecified COPD ty pe J44.9 Active 49495344 Problem Menopause Z78.0 Active 895944139 Problem Panic disorder with agoraphobia and moderate panic attacks F40.01 Active 6862644 Problem Bipolar II disorder F31.81 Active 49872935 ALLERGIES No Information ENCOUNTERS Encounter Location Date Diagnosis [place] [address] [facility] [id number] [address] [place] [phone] Dec, [facility] [address] [place] [id number] [address] [place] [address] Nov, Chronic obstructive pulmonar y disease, unspecified COPD type J44.9 [facility] [address] [facility] [id number] [address] [place] [address] Nov, [address] [address] Nov, Screening for breast cancer Z12.31 [facility] [address] [facility] [id number] [address] [place] [address] Oct, Screening for breast cancer Z12.31 ; Left arm pain M79.602 ; Encounter for smoking cessation counseling Z71.6 ; Major depressive disorder with single episode, remission status unspecified F32.9 ; Panic disorder with agoraphobia and moderate panic attacks F40.01 [address] M54.2 [facility] [address] [id number] [address] [place] [address] Oct, Chronic obstructive pulmonar y disease, unspecified COPD type J44.9 [facility] [address] [id number] [address] [place] [address] Sep, [facility] [address] [id number] [address] [place] [address] Jul, Chronic obstructive pulmonar y disease, unspecified COPD type J44.9 [facility] [address] [id number] [address] [place] [address] Jul, Chronic obstructive pulmonar y disease, unspecified COPD type J44.9 [facility] [address] [id number] [address] [place] [id number] Jun, [facility] [address] [id number] [address] [place] [address] Jun, [facility] [address] [id number] [address] [place] [address] May, [facility] [address] [facility] [id number] [address] [place] [id number] Apr, [facility] [address] [id number] [address] [place] [address] Apr, Screening for diabetes melli tus Z13.1 ; Screening for lipid disorders Z13.220 and Post-menopause Z78.0 [facility] [address] [id number] [address] [place] [address] 16 Apr, 2018 Pain in female genitalia on intercourse N94.10 ; Well woman exam with routine gynecological exam Z01.419 ; Major depressive disorder with current active episode, unspecified depression episode severity, unspecified whether recurrent F32.9 ; Post-menopause Z78.0 ; Screening for diabetes mellitus Z13.1 and Screening for lipid disorders Z13.220 [facility] [address] [id number] [address] [place] [address] Nov, [facility] [address] [id number] [address] [place] [id number] Nov, [facility] [address] [id number] [address] [place] [id number] Oct, Sore throat J02.9 and Nasoph aryngitis acute J00 [facility] [address] [id number] [address] [place] [id number] May, Chronic obstructive pulmonar y disease, unspecified COPD type J44.9 [facility] [address] [id number] [address] [place] [id number] May, [facility] [address] [id number] [address] [place] [id number] Apr, Chronic obstructive pulmonar y disease, unspecified COPD type J44.9 [facility] [address] [id number] [address] [place] [id number] Apr, Chronic obstructive pulmonar y disease, unspecified COPD type J44.9 [facility] [address] [id number] [address] [place] [id number] Mar, [facility] [address] [id number] [address] [place] [id number] Mar, Dental caries K02.9 [facility] [address] [id number] [address] [place] [address] January, Menopause Z78.0 [facility] [address] [id number] [address] [place] [id number] Dec, [facility] [address] [id number] [address] [place] [phone] Dec, [facility] [address] [facility] [id number] [address] [place] [phone] Dec, [facility] [address] [id number] [address] [place] [id number] Dec, [facility] [address] [id number] [address] [place] [address] Nov, Chronic obstructive pulmonar y disease, unspecified COPD type J44.9 ; Right elbow pain M25.521 ; Menopause Z78.0 and Bipolar II disorder F31.81 [facility] [address] [id number] [address] [place] [id number] Oct, [facility] [address] [id number] [address] [place] [address] Oct, [place] [address] [id number] [address] [place] [id number] Oct, Bipolar II disorder F31.81 ; Panic disorder with agoraphobia and moderate panic attacks F40.01 and Attention deficit hyperactivity disorder (ADHD), combined type F90.2 [place] [address] [id number] [address] [place] [id number] Oct, Lateral epicondylitis of rig ht elbow M77.11 [place] [address] [id number] [address] [place] [address] Sep, Lateral epicondylitis of rig ht elbow M77.11 and Major depressive disorder with single episode, remission status unspecified F32.9 [place] [address] [id number] [address] [place] [id number] 07 Aug, 2016 Lateral epicondylitis of rig ht elbow M77.11 [place] [address] [id number] [address] [place] [id number] 16 Jul, 2016 Menopause Z78.0 [place] [address] [id number] [address] [place] [id number] 12 May, 2016 [place] [address] [facility] [id number] [address] [place] [id number] 08 May, 2016 Well woman exam with routine gynecological exam Z01.419 ; Lateral epicondylitis of right elbow M77.11 and Chronic obstructive pulmonary disease, unspecified COPD type J44.9 [place] [address] [facility] [id number] [address] [place] [address] Mar, Major depressive disorder wi th single episode, remission status unspecified F32.9 ; Chronic obstructive pulmonary disease, unspecified COPD type J44.9 ; Right elbow pain M25.[address] [facility] [address] [facility] [id number] [address] [place] [address] Mar, [facility] [address] [id number] [address] [place] [id number] Feb, Right elbow pain M25.521 and Chronic obstructive pulmonary disease, unspecified COPD type J44.9 [place] [address] [place] [id number] [place] [id number] January, Anxiety disorder, unspecifie d F41.9 and Major depressive disorder, single episode, unspecified F32.9 [place] [address] [place] [id number] [address] [place] [phone] Nov, [facility] [address] [facility] [id number] [address] [place] [phone] Jun, [facility] [address] [place] [id number] [address] [place] [id number] Jun, [facility] [address] [place] [id number] [address] [place] [id number] Jun, [facility] [address] [place] [id number] [address] [place] [id number] May, [facility] [address] [facility] [id number] [address] [place] [address] May, Sinusitis 473.9 [facility] [address] [place] [id number] [address] [place] [phone] May, [facility] [address] [place] [id number] [address] [place] [id number] Apr, Dysuria 788.1 ; Urinary trac t infection 599.0 ; Depression 311 ; Anxiety 300.00 [address] 728.85 [facility] [address] [id number] [address] [place] [address] Apr, [facility] [address] [id number] [address] [place] [phone] Apr, [facility] [address] [id number] [address] [place] [id number] Apr, [facility] [address] [id number] [address] [place] [id number] Mar, Lateral epicondylitis of rig ht elbow 726.32 [facility] [address] [id number] [address] [place] [id number] Mar, [facility] [address] [id number] [address] [place] [phone] Feb, Anxiety 300.00 ; Tendonitis 726.90 ; Back spasm 724.[address] [facility] [address] [id number] [address] [place] [phone] Dec, [facility] [address] [id number] [address] [place] [phone] Dec, [facility] [address] [id number] [address] [place] [phone] Jun, [facility] [address] [id number] [address] [place] [phone] Jun, [facility] [address] [id number] [address] [place] [phone] Dec, [facility] [address] [id number] [address] [place] [phone] Dec, [facility] [address] [id number] [address] [place] [phone] Jun, [facility] [address] [id number] [address] [place] [id number] Jun, IMMUNIZATIONS No Known Immunizations SOCIAL HISTORY Never Assessed REASON FOR VISIT [facility] PLAN OF CARE VITAL SIGNS MEDICATIONS Medication Instructions Dosage Frequency Start Date End Date Duration S eliseo Amoxicillin 500 mg 2 capsule by Oral route 2 times per day for 7 day(s) Dec, Active RESULTS No Results PROCEDURES No Known procedures INSTRUCTIONS MEDICATIONS ADMINISTERED No Known Medications MEDICAL (GENERAL) HISTORY Type Description Date Medical History depression Medical History elbow pain Surgical History section 1988, 1985 Surgical History cataract both eyes Surgical History left arm rotator cuff Hospitalization History surgical only
--- OUTSIDE RECORDS SUMMARY | 2020-03-13 07:29 | XMS REPORT ---
Author Author Bailey MOURA Organization [facility] Address [address] [place] [address] Care Team Providers Care Motor Pool Driver Name Role Phone DAVID MOURA Unavailable PROBLEMS Type Condition ICD9-CM Code FNO64-VD Code Onset Dates Condition S tatus SNOMED Code Problem Major depressive disorder wi th single episode, remission status unspecified F32.9 Active 71430658 Problem Attention deficit hyperactivity disorder (ADHD), combi lars type F90.2 Active 00510363 Problem ADHD (attention deficit hyperactivity disorder), inattentive type F90.0 Active 67460605 Problem Menopause Z78.0 Active 284692341 Problem Chronic obstructive pulmonary disease, unspecified COPD ty pe J44.9 Active 13102620 Problem Bipolar II disorder F31.81 Active 06133507 Problem Panic disorder with agoraphobia and moderate panic attacks F40.01 Active 9494553 ALLERGIES No Known Allergies ENCOUNTERS Encounter Location Date Diagnosis [facility] [address] [facility] [id number] [address] [place] [phone] Aug, [facility] [address] [place] [id number] [address] [place] [phone] 15 Jul, 2018 Chronic obstructive pulmonar y disease, unspecified COPD type J44.9 [facility] [address] [facility] [id number] [address] [place] [phone] 13 Jul, 2018 Chronic obstructive pulmonar y disease, unspecified COPD type J44.9 [facility] [address] [facility] [id number] [address] [place] [phone] 18 Jun, 2018 [facility] [address] [facility] [id number] [address] [place] [phone] 05 Jun, 2018 [facility] [address] [place] [id number] [address] [place] [phone] May, [facility] [address] [facility] [id number] [address] [place] [phone] Apr, [facility] [address] [facility] [id number] [address] [place] [phone] Apr, Screening for diabetes melli tus Z13.1 ; Screening for lipid disorders Z13.220 and Post-menopause Z78.0 [facility] [address] [facility] [id number] [address] [place] [phone] Apr, Pain in female genitalia on intercourse N94.10 ; Well woman exam with routine gynecological exam Z01.419 ; Major depressive disorder with current active episode, unspecified depression episode severity, unspecified whether recurrent F32.9 ; Post-menopause Z78.0 ; Screening for diabetes mellitus Z13.1 and Screening for lipid disorders Z13.220 [place] [address] [facility] [id number] [address] [place] [phone] Nov, [facility] [address] [facility] [id number] [address] [place] [phone] Nov, [facility] [address] [facility] [id number] [address] [place] [phone] Oct, Sore throat J02.9 and Nasoph aryngitis acute J00 [place] [address] [facility] [id number] [address] [place] [phone] May, Chronic obstructive pulmonar y disease, unspecified COPD type J44.9 [facility] [address] [facility] [id number] [address] [place] [phone] May, [facility] [address] [facility] [id number] [address] [place] [phone] Apr, Chronic obstructive pulmonar y disease, unspecified COPD type J44.9 [facility] [address] [facility] [id number] [address] [place] [phone] Apr, Chronic obstructive pulmonar y disease, unspecified COPD type J44.9 [facility] [address] [id number] [address] [place] [phone] Mar, [facility] [address] [id number] [address] [place] [id number] Mar, Dental caries K02.9 [facility] [address] [facility] [id number] [address] [place] [phone] January, Menopause Z78.0 [facility] [address] [facility] [id number] [address] [place] [phone] Dec, [facility] [address] [facility] [id number] [address] [place] [phone] Dec, [facility] [address] [facility] [id number] [address] [place] [phone] Dec, [facility] [address] [place] [id number] [address] [place] [phone] Dec, [facility] [address] [facility] [id number] [address] [place] [phone] Nov, Chronic obstructive pulmonar y disease, unspecified COPD type J44.9 ; Right elbow pain M25.521 ; Menopause Z78.0 and Bipolar II disorder F31.81 [facility] [address] [facility] [id number] [address] [place] [phone] Oct, [facility] [address] [facility] [id number] [address] [place] [phone] Oct, [facility] [address] [facility] [id number] [address] [place] [phone] Oct, Bipolar II disorder F31.81 ; Panic disorder with agoraphobia and moderate panic attacks F40.01 and Attention deficit hyperactivity disorder (ADHD), combined type F90.2 [facility] [address] [facility] [id number] [address] [place] [phone] Oct, Lateral epicondylitis of rig ht elbow M77.11 [facility] [address] [facility] [id number] [address] [place] [phone] Sep, Lateral epicondylitis of rig ht elbow M77.11 and Major depressive disorder with single episode, remission status unspecified F32.9 [facility] [address] [id number] [address] [place] [phone] 07 Aug, 2016 Lateral epicondylitis of rig ht elbow M77.11 [facility] [address] [id number] [address] [place] [phone] 16 Jul, 2016 Menopause Z78.0 [place] [address] [id number] [address] [place] [phone] 12 May, 2016 [place] [address] [id number] [address] [place] [phone] 08 May, 2016 Well woman exam with routine gynecological exam Z01.419 ; Lateral epicondylitis of right elbow M77.11 and Chronic obstructive pulmonary disease, unspecified COPD type J44.9 [place] [address] [id number] [address] [place] [phone] Mar, Major depressive disorder wi th single episode, remission status unspecified F32.9 ; Chronic obstructive pulmonary disease, unspecified COPD type J44.9 ; Right elbow pain M25.521 and Menopause Z78.0 [facility] [address] [id number] [address] [place] [phone] 05 Mar, 2016 [place] [address] [id number] [address] [place] [phone] Feb, Right elbow pain M25.521 and Chronic obstructive pulmonary disease, unspecified COPD type J44.9 [place] [address] [id number] [address] [place] [phone] January, Anxiety disorder, unspecifie d F41.9 and Major depressive disorder, single episode, unspecified F32.9 [place] [id number] [id number] [address] [place] [phone] Nov, [facility] [address] [id number] [address] [place] [phone] Jun, [facility] [address] [id number] [address] [place] [phone] Jun, [facility] [address] [id number] [address] [place] [phone] Jun, [facility] [address] [facility] [id number] [address] [place] [phone] May, [facility] [address] [id number] [address] [place] [phone] May, Sinusitis 473.9 [facility] [address] [id number] [address] [place] [phone] May, [facility] [address] [place] [id number] [address] [place] [phone] Apr, Dysuria 788.1 ; Urinary trac t infection 599.0 ; Depression 311 ; Anxiety 300.00 and Muscle spasm 728.85 [facility] [address] [place] [id number] [address] [place] [phone] Apr, [facility] [address] [id number] [address] [place] [phone] Apr, [facility] [address] [facility] [id number] [address] [place] [phone] Apr, [facility] [address] [facility] [id number] [address] [place] [phone] Mar, Lateral epicondylitis of rig ht elbow 726.32 [facility] [address] [id number] [address] [place] [id number] Mar, [facility] [address] [facility] [id number] [address] [place] [phone] Feb, Anxiety 300.00 ; Tendonitis 726.90 ; Back spasm 724.8 and Lumbago 724.2 [facility] [address] [facility] [id number] [address] [place] [phone] Dec, [facility] [address] [id number] [address] [place] [phone] Dec, [facility] [address] [id number] [address] [place] [phone] Jun, [facility] [address] [id number] [address] [place] [phone] Jun, [facility] [address] [id number] [address] [place] [phone] Dec, [facility] [address] [id number] [address] [place] [phone] Dec, [facility] [address] [id number] [address] [place] [phone] Jun, [facility] [address] [id number] [address] [place] [phone] Jun, IMMUNIZATIONS No Known Immunizations SOCIAL HISTORY Never Assessed REASON FOR VISIT Annual physical (female)----Victor HugoLUCY PLAN OF CARE Activity Details Follow Up 1 Year with Ar Well woman Reason: VITAL SIGNS Height 70 in 2018-04-22 Weight 147 lbs 2018-04-22 Temperature 97.9 degrees Fahrenheit 2018-04-22 Heart Rate 80 bpm 2018-04-22 Respiratory Rate 20 2018-04-22 BMI 21.09 kg/m2 2018-04-22 Blood pressure systolic 122 mmHg 2018-04-22 Blood pressure diastolic 60 mmHg 2018-04-22 MEDICATIONS Medication Instructions Dosage Frequency Start Date End Date Duration S tatus Symbicort 160-4.5 MCG/ACT Inhalation Twice a day INHALE TWO PUFFS BY MOUTH TWICE DAILY 12h Not-Taking Prozac 20 mg Orally Once a day 1 capsule in the morning 24h 90 days Active Prozac 40 mg Orally Once a day 1 capsule in the morning 24h 90 days Active Aspirin 81 MG Orally Once a day 1 tablet 24h Active Premarin 0.625 MG/GM Vaginal daily x 1 week then twice weekly af ter as directed Apr, Active RESULTS No Results PROCEDURES Procedure Date Ordered Result Body Site No Charge Apr 22, 2018 TRICHOMONAS ASSAY W/OPTIC Apr 22, 2018 SPECIMEN HANDLING Apr 22, 2018 Bacterial Vaginosis In House Apr 22, 2018 FUNGUS ISOLATION CULTURE Apr 22, 2018 INSTRUCTIONS MEDICATIONS ADMINISTERED No Known Medications MEDICAL (GENERAL) HISTORY Type Description Date Medical History depression Medical History elbow pain Surgical History section 1985 Surgical History cataract both eyes Surgical History left arm rotator cuff Hospitalization History surgical only
--- OUTSIDE RECORDS SUMMARY | 2020-03-13 07:29 | XMS REPORT ---
Author Author Bailey MOURA Organization [facility] Address [address] [place] [address] Care Team Providers Care Computer Assembler Name Role Phone DAVID MOURA Unavailable PROBLEMS Type Condition ICD9-CM Code MLP32-EZ Code Onset Dates Condition S tatus SNOMED Code Problem Chronic obstructive pulmonary disease, unspecified COPD ty pe J44.9 Active 76342523 Problem Panic disorder with agoraphobia and moderate panic attacks F40.01 Active 3922480 Problem Bipolar II disorder F31.81 Active 28413825 Problem Bipolar affective disorder, currently depressed, moderate F31.32 Active 956143479 Problem Menopause Z78.0 Active 248216645 Problem Bipolar affective disorder, currently depressed, mild F31.31 Active 041172947 Problem Major depressive disorder wi th single episode, remission status unspecified F32.9 Active 05839511 Problem ADHD (attention deficit hyperactivity disorder), inattentive type F90.0 Active 88304423 Problem Attention deficit hyperactivity disorder (ADHD), combi lars type F90.2 Active 93159874 Problem Alcohol abuse F10.10 Active 733008 05 Problem Alcohol consumption binge drinking F10.10 Active 548459619 ALLERGIES No Information ENCOUNTERS Encounter Location Date Diagnosis [facility] [address] [place] [id number] [address] [place] [phone] Jul, [facility] [address] [facility] [id number] [address] [place] [phone] Jun, [facility] [address] [id number] [address] [place] [phone] May, Bronchitis J40 and Wheezing R06.2 [facility] [address] [facility] [id number] [address] [place] [phone] Mar, Bipolar affective disorder, currently depressed, mild F31.31 [facility] [address] [facility] [id number] [address] [place] [phone] Feb, [facility] [address] [facility] [id number] [address] [place] [phone] Feb, [facility] [address] [facility] [id number] [address] [place] [phone] Feb, [facility] [address] [facility] [id number] [address] [place] [phone] Feb, Chronic obstructive pulmonar y disease, unspecified COPD type J44.9 [facility] [address] [facility] [id number] [address] [place] [phone] January, [place] [address] [facility] [id number] [address] [place] [phone] Dec, Bipolar affective disorder, currently depressed, moderate F31.32 ; Panic disorder with agoraphobia and moderate panic attacks F40.01 and Alcohol consumption binge drinking F10.10 [facility] [address] [facility] [id number] [address] [place] [phone] Nov, Chronic obstructive pulmonar y disease, unspecified COPD type J44.9 [place] [address] [place] [id number] [address] [place] [phone] Nov, [address] [phone] Nov, Screening for breast cancer Z12.31 [place] [address] [facility] [id number] [address] [place] [phone] Oct, Left arm pain M79.602 ; Scre ening for breast cancer Z12.31 ; Encounter for smoking cessation counseling Z71.6 ; Major depressive disorder with single episode, remission status unspecified F32.9 ; Panic disorder with agoraphobia and moderate panic attacks F40.01 and Neck pain M54.2 [facility] [address] [facility] [id number] [address] [place] [phone] 05 Oct, 2018 Chronic obstructive pulmonar y disease, unspecified COPD type J44.9 [facility] [address] [id number] [address] [place] [phone] Sep, [facility] [address] [id number] [address] [place] [phone] Jul, Chronic obstructive pulmonar y disease, unspecified COPD type J44.9 [facility] [address] [id number] [address] [place] [phone] Jul, Chronic obstructive pulmonar y disease, unspecified COPD type J44.9 [facility] [address] [id number] [address] [place] [phone] Jun, [facility] [address] [id number] [address] [place] [phone] Jun, [facility] [address] [facility] [id number] [address] [place] [phone] May, [facility] [address] [facility] [id number] [address] [place] [phone] Apr, [facility] [address] [facility] [id number] [address] [place] [phone] Apr, Screening for diabetes melli tus Z13.1 ; Screening for lipid disorders Z13.220 and Post-menopause Z78.0 [facility] [address] [facility] [id number] [address] [place] [phone] Apr, Pain in female genitalia on intercourse N94.10 ; Well woman exam with routine gynecological exam Z01.419 ; Major depressive disorder with current active episode, unspecified depression episode severity, unspecified whether recurrent F32.9 ; Post-menopause Z78.0 ; Screening for diabetes mellitus Z13.1 and Screening for lipid disorders Z13.220 [facility] [address] [facility] [id number] [address] [place] [phone] Nov, [facility] [address] [facility] [id number] [address] [place] [phone] Nov, [facility] [address] [facility] [id number] [address] [place] [phone] Oct, Sore throat J02.9 and Nasoph aryngitis acute J00 [facility] [address] [id number] [address] [place] [phone] May, Chronic obstructive pulmonar y disease, unspecified COPD type J44.9 [facility] [address] [id number] [address] [place] [phone] May, [facility] [address] [id number] [address] [place] [phone] Apr, Chronic obstructive pulmonar y disease, unspecified COPD type J44.9 [facility] [address] [id number] [address] [place] [phone] Apr, Chronic obstructive pulmonar y disease, unspecified COPD type J44.9 [facility] [address] [id number] [address] [place] [phone] Mar, [facility] [address] [id number] [address] [place] [id number] Mar, Dental caries K02.9 [facility] [address] [id number] [address] [place] [phone] January, Menopause Z78.0 [facility] [address] [id number] [address] [place] [phone] Dec, [facility] [address] [id number] [address] [place] [phone] Dec, [facility] [address] [id number] [address] [place] [phone] Dec, [facility] [address] [id number] [address] [place] [phone] Dec, [facility] [address] [facility] [id number] [address] [place] [id number] Nov, Chronic obstructive pulmonar y disease, unspecified COPD type J44.9 ; Right elbow pain M25.521 ; Menopause Z78.0 and Bipolar II disorder F31.81 [facility] [address] [id number] [address] [place] [phone] Oct, [facility] [address] [id number] [address] [place] [phone] Oct, [facility] [address] [id number] [address] [place] [phone] Oct, Bipolar II disorder F31.81 ; Panic disorder with agoraphobia and moderate panic attacks F40.01 and Attention deficit hyperactivity disorder (ADHD), combined type F90.2 [place] [address] [id number] [address] [place] [phone] Oct, Lateral epicondylitis of rig ht elbow M77.11 [place] [address] [id number] [address] [place] [id number] Sep, Lateral epicondylitis of rig ht elbow M77.11 and Major depressive disorder with single episode, remission status unspecified F32.9 [place] [address] [id number] [address] [place] [phone] Aug, Lateral epicondylitis of rig ht elbow M77.11 [facility] [address] [id number] [address] [place] [phone] 16 Jul, 2016 Menopause Z78.0 [facility] [address] [id number] [address] [place] [phone] 12 May, 2016 [facility] [address] [id number] [address] [place] [phone] 08 May, 2016 Well woman exam with routine gynecological exam Z01.419 ; Lateral epicondylitis of right elbow M77.11 and Chronic obstructive pulmonary disease, unspecified COPD type J44.9 [facility] [address] [id number] [address] [place] [phone] Mar, Major depressive disorder wi th single episode, remission status unspecified F32.9 ; Chronic obstructive pulmonary disease, unspecified COPD type J44.9 ; Right elbow pain M25.521 and Menopause Z78.0 [facility] [address] [id number] [address] [place] [phone] Mar, [facility] [address] [id number] [address] [place] [phone] Feb, Right elbow pain M25.521 and Chronic obstructive pulmonary disease, unspecified COPD type J44.9 [facility] [address] [id number] [address] [place] [phone] January, Anxiety disorder, unspecifie d F41.9 and Major depressive disorder, single episode, unspecified F32.9 [facility] [address] [facility] [id number] [address] [place] [phone] Nov, [facility] [address] [place] [id number] [address] [place] [phone] Jun, [facility] [address] [id number] [address] [place] [phone] Jun, [facility] [address] [facility] [id number] [address] [place] [phone] Jun, [facility] [address] [place] [id number] [address] [place] [phone] May, [facility] [address] [place] [id number] [address] [place] [phone] May, Sinusitis 473.9 [facility] [address] [facility] [id number] [address] [place] [phone] May, [facility] [address] [place] [id number] [address] [place] [phone] Apr, Dysuria 788.1 ; Urinary trac t infection 599.0 ; Depression 311 ; Anxiety 300.00 and Muscle spasm 728.85 [facility] [address] [id number] [address] [place] [phone] Apr, [facility] [address] [id number] [address] [place] [phone] Apr, [facility] [address] [id number] [address] [place] [phone] Apr, [facility] [address] [id number] [address] [place] [phone] Mar, Lateral epicondylitis of rig ht elbow 726.32 [facility] [address] [id number] [address] [place] [phone] Mar, [facility] [address] [id number] [address] [place] [phone] Feb, Anxiety 300.00 ; Tendonitis 726.90 ; Back spasm 724.8 and Lumbago 724.2 [facility] [address] [facility] [id number] [address] [place] [phone] Dec, [facility] [address] [facility] [id number] [address] [place] [phone] Dec, [facility] [address] [facility] [id number] [address] [place] [phone] Jun, [facility] [address] [facility] [id number] [address] [place] [phone] Jun, [facility] [address] [facility] [id number] [address] [place] [phone] Dec, [facility] [address] [facility] [id number] [address] [place] [phone] Dec, [facility] [address] [facility] [id number] [address] [place] [phone] Jun, [facility] [address] [facility] [id number] [address] [place] [phone] Jun, IMMUNIZATIONS No Known Immunizations SOCIAL HISTORY Never Assessed REASON FOR VISIT Phone Call PLAN OF CARE VITAL SIGNS MEDICATIONS Unknown [...]
--- OUTSIDE RECORDS SUMMARY | 2020-03-13 07:30 | XMS REPORT ---
Author Author Bailey BILLY Organization [facility] Address [address] [place] [address] Care Team Providers Care Wet Chemistry Analyst Name Role Phone KELLY BILLY Unavailable PROBLEMS Type Condition ICD9-CM Code IUA61-LE Code Onset Dates Condition S tatus SNOMED Code Problem Right elbow pain M25.521 Active 267 831045 Problem Major depressive disorder wi th single episode, remission status unspecified F32.9 Active 84420641 Problem Menopause Z78.0 Active 735102221 Problem Chronic obstructive pulmonary disease, unspecified COPD ty pe J44.9 Active 24108702 Problem Attention deficit hyperactivity disorder (ADHD), combi lars type F90.2 Active 20727050 Problem ADHD (attention deficit hyperactivity disorder), inattentive type F90.0 Active 81333135 Problem Well woman exam with routine gynecological exam Z0 1.419 Active 183641962 Problem Lateral epicondylitis of right elbow M77.11 Active 632911897 Problem Bipolar II disorder F31.81 Active 94655153 Problem Panic disorder with agoraphobia and moderate panic attacks F40.01 Active 5231123 ALLERGIES No Information ENCOUNTERS Encounter Location Date Diagnosis [facility] [address] [facility] [id number] [address] [place] [phone] Feb, [facility] [address] [place] [id number] [address] [place] [phone] Nov, [facility] [address] [place] [id number] [address] [place] [phone] Nov, [facility] [address] [place] [id number] [address] [place] [phone] Oct, Sore throat J02.9 and Nasoph aryngitis acute J00 [facility] [address] [place] [id number] [address] [place] [phone] May, Chronic obstructive pulmonar y disease, unspecified COPD type J44.9 [facility] [address] [id number] [address] [place] [phone] May, [facility] [address] [id number] [address] [place] [phone] Apr, Chronic obstructive pulmonar y disease, unspecified COPD type J44.9 [facility] [address] [id number] [address] [place] [phone] Apr, Chronic obstructive pulmonar y disease, unspecified COPD type J44.9 [facility] [address] [id number] [address] [place] [phone] Mar, [facility] [address] [id number] [address] [place] [id number] Mar, Dental caries K02.9 [facility] [address] [id number] [address] [place] [phone] January, Menopause Z78.0 [facility] [address] [id number] [address] [place] [phone] Dec, [facility] [address] [facility] [id number] [address] [place] [phone] Dec, [facility] [address] [id number] [address] [place] [phone] Dec, [facility] [address] [id number] [address] [place] [phone] Dec, [facility] [address] [facility] [id number] [address] [place] [address] Nov, Chronic obstructive pulmonar y disease, unspecified COPD type J44.9 ; Right elbow pain M25.521 ; Menopause Z78.0 and Bipolar II disorder F31.81 [facility] [address] [id number] [address] [place] [address] Oct, [facility] [address] [id number] [address] [place] [phone] Oct, [facility] [address] [id number] [address] [place] [phone] Oct, Bipolar II disorder F31.81 ; Panic disorder with agoraphobia and moderate panic attacks F40.01 and Attention deficit hyperactivity disorder (ADHD), combined type F90.2 [facility] [address] [id number] [address] [place] [phone] Oct, Lateral epicondylitis of rig ht elbow M77.11 [facility] [address] [id number] [address] [place] [phone] Sep, Lateral epicondylitis of rig ht elbow M77.11 and Major depressive disorder with single episode, remission status unspecified F32.9 [place] [id number] [id number] [address] [place] [address] Aug, Lateral epicondylitis of rig ht elbow M77.11 [facility] [address] [id number] [address] [place] [phone] 16 Jul, 2016 Menopause Z78.0 [facility] [address] [id number] [address] [place] [phone] 12 May, 2016 [facility] [address] [id number] [address] [place] [phone] 08 May, 2016 Well woman exam with routine gynecological exam Z01.419 ; Lateral epicondylitis of right elbow M77.11 and Chronic obstructive pulmonary disease, unspecified COPD type J44.9 [facility] [address] [id number] [address] [place] [address] Mar, Major depressive disorder wi th single episode, remission status unspecified F32.9 ; Chronic obstructive pulmonary disease, unspecified COPD type J44.9 ; Right elbow pain M25.521 and Menopause Z78.0 [facility] [address] [id number] [address] [place] [phone] 05 Mar, 2016 [place] [address] [id number] [address] [place] [phone] Feb, Right elbow pain M25.521 and Chronic obstructive pulmonary disease, unspecified COPD type J44.9 [facility] [address] [facility] [id number] [address] [place] [phone] January, Anxiety disorder, unspecifie d F41.9 and Major depressive disorder, single episode, unspecified F32.9 [facility] [address] [id number] [address] [place] [phone] Nov, [facility] [address] [id number] [address] [place] [phone] Jun, [facility] [address] [place] [id number] [address] [place] [phone] Jun, [facility] [address] [place] [id number] [address] [place] [phone] Jun, [facility] [address] [place] [id number] [address] [place] [phone] May, [facility] [address] [id number] [address] [place] [phone] May, Sinusitis 473.9 [facility] [address] [place] [id number] [address] [place] [phone] May, [facility] [address] [place] [id number] [address] [place] [address] Apr, Dysuria 788.1 ; Urinary trac t infection 599.0 ; Depression 311 ; Anxiety 300.00 and Muscle spasm 728.85 [facility] [address] [id number] [address] [place] [address] Apr, [facility] [address] [place] [id number] [address] [place] [phone] Apr, [facility] [address] [place] [id number] [address] [place] [phone] Apr, [facility] [address] [id number] [address] [place] [address] Mar, Lateral epicondylitis of rig ht elbow 726.32 [facility] [address] [id number] [address] [place] [phone] Mar, [facility] [address] [id number] [address] [place] [phone] Feb, Anxiety 300.00 ; Tendonitis 726.90 ; Back spasm 724.8 and Lumbago 724.2 [facility] [address] [id number] [address] [place] [phone] Dec, [facility] [address] [id number] [address] [place] [phone] Dec, [facility] [address] [id number] [address] [place] [phone] Jun, [facility] [address] [id number] [address] [place] [address] Jun, [facility] [address] [id number] [address] [place] [id number] Dec, [facility] [address] [id number] [address] [place] [phone] Dec, [facility] [address] [id number] [address] [place] [phone] Jun, [facility] [address] [id number] [address] [place] [phone] Jun, IMMUNIZATIONS No Known Immunizations SOCIAL HISTORY Never Assessed REASON FOR VISIT PALS IN-Prozac PLAN OF CARE VITAL SIGNS MEDICATIONS Unknown Medications RESULTS No Results PROCEDURES No Known procedures INSTRUCTIONS MEDICATIONS ADMINISTERED No Known Medications MEDICAL (GENERAL) HISTORY Type Description Date Medical History depression Medical History elbow pain Surgical History section 1988, 1985 Surgical History cataract both eyes Surgical History left arm rotator cuff Hospitalization History surgical only
--- OUTSIDE RECORDS SUMMARY | 2020-03-13 07:30 | XMS REPORT ---
Author Author Bailey OTTO Organization [facility] Address [address] [place] [address] Care Team Providers Care Studio Designer Name Role Phone SABIHA OTTO Unavailable PROBLEMS Type Condition ICD9-CM Code FZT90-AC Code Onset Dates Condition S tatus SNOMED Code Problem Right elbow pain M25.521 Active 267 907481 Problem Major depressive disorder wi th single episode, remission status unspecified F32.9 Active 68586793 Problem Menopause Z78.0 Active 546400982 Problem Chronic obstructive pulmonary disease, unspecified COPD ty pe J44.9 Active 39119915 Problem Attention deficit hyperactivity disorder (ADHD), combi lars type F90.2 Active 10886479 Problem ADHD (attention deficit hyperactivity disorder), inattentive type F90.0 Active 20705637 Problem Well woman exam with routine gynecological exam Z0 1.419 Active 425355967 Problem Lateral epicondylitis of right elbow M77.11 Active 689240347 Problem Bipolar II disorder F31.81 Active 58211429 Problem Panic disorder with agoraphobia and moderate panic attacks F40.01 Active 7941063 ALLERGIES Unknown Allergies SOCIAL HISTORY No smoking Hx information available PLAN OF CARE VITAL SIGNS MEDICATIONS Medication Instructions Dosage Frequency Start Date End Date Duration S tatus Cyclobenzaprine HCl 10 mg Orally one daily prn 1 tablet Active Prozac 20 mg Orally Once a day 1 capsule in the morning 24h Active Prozac 40 mg Orally Once a day 1 capsule in the morning 24h Active RESULTS No Results PROCEDURES No Known procedures IMMUNIZATIONS No Known Immunizations
--- OUTSIDE RECORDS SUMMARY | 2020-03-13 07:30 | XMS REPORT ---
Author Author Bailey AMARO Organization [employer] Address Unknown Phone Unavailable Care Team Providers Care Immunohematologist Name Role Phone JOY AMARO CP Unavailable Allergies No Known Allergies Problems Problem Type Condition ICD-9 Code Onset Dates Condition Statu s Problem Acute pharyngitis 462 Active Problem Need for prophylactic vaccination and inoculation, Inf luenza V04.81 Active Medications Medication Code System Code Instructions Start Date End Date Status Dosage Symbicort [facility] [address]-51 160-4.5 MCG/ACT Inhalation Twice a day 2 puffs Results No Known Results Summary Purpose [employer] Submission
--- OUTSIDE RECORDS SUMMARY | 2020-03-13 07:30 | XMS REPORT ---
Author Author Bailey BILLY Organization [facility] Address [address] [place] [address] Care Team Providers Care Tentering Machine Off Bearer Name Role Phone KELLY BILLY Unavailable PROBLEMS Type Condition ICD9-CM Code [id number] Code Onset Dates Condition S tatus SNOMED Code Problem Right elbow pain M25.521 Active 267 111721 Problem Major depressive disorder wi th single episode, remission status unspecified F32.9 Active 62188672 Problem Menopause Z78.0 Active 013760078 Problem Chronic obstructive pulmonary disease, unspecified COPD ty pe J44.9 Active 11703265 Problem Attention deficit hyperactivity disorder (ADHD), combi lars type F90.2 Active 69757951 Problem ADHD (attention deficit hyperactivity disorder), inattentive type F90.0 Active 64362926 Problem Well woman exam with routine gynecological exam Z0 1.419 Active 394886224 Problem Lateral epicondylitis of right elbow M77.11 Active 453227474 Problem Bipolar II disorder F31.81 Active 16337515 Problem Panic disorder with agoraphobia and moderate panic attacks F40.01 Active 5884326 ALLERGIES No Information ENCOUNTERS Encounter Location Date Diagnosis [facility] [address] [facility] [id number] [address] [place] [phone] Apr, [facility] [address] [place] [id number] [address] [place] [phone] Nov, [facility] [address] [place] [id number] [address] [place] [phone] Nov, [facility] [address] [place] [place] [id number] [address] [place] [phone] Oct, Sore throat J02.9 and Nasoph aryngitis acute J00 [facility] [address] [place] [id number] [address] [place] [phone] May, Chronic obstructive pulmonar y disease, unspecified COPD type J44.9 [facility] [place] [address] [id number] [address] [place] [phone] May, [facility] [address] [id number] [address] [place] [phone] Apr, Chronic obstructive pulmonar y disease, unspecified COPD type J44.9 [facility] [address] [id number] [address] [place] [phone] Apr, Chronic obstructive pulmonar y disease, unspecified COPD type J44.9 [facility] [address] [id number] [address] [place] [phone] Mar, [facility] [address] [id number] [address] [place] [id number] Mar, Dental caries K02.9 [facility] [address] [id number] [address] [place] [phone] January, Menopause Z78.0 [facility] [place] [address] [id number] [address] [place] [phone] Dec, [facility] [place] [address] [facility] [id number] [address] [place] [phone] Dec, [facility] [place] [address] [id number] [address] [place] [phone] Dec, [facility] [address] [id number] [address] [place] [phone] Dec, [facility] [place] [address] [facility] [id number] [address] [place] [phone] Nov, Chronic obstructive pulmonar y disease, unspecified COPD type J44.9 ; Right elbow pain M25.521 ; Menopause Z78.0 and Bipolar II disorder F31.81 [facility] [address] [id number] [address] [place] [phone] Oct, [facility] [place] [address] [id number] [address] [place] [phone] Oct, [facility] [place] [address] [id number] [address] [place] [phone] Oct, Bipolar II disorder F31.81 ; Panic disorder with agoraphobia and moderate panic attacks F40.01 and Attention deficit hyperactivity disorder (ADHD), combined type F90.2 [facility] [address] [id number] [address] [place] [phone] Oct, Lateral epicondylitis of rig ht elbow M77.11 [facility] [address] [id number] [address] [place] [phone] Sep, Lateral epicondylitis of rig ht elbow M77.11 and Major depressive disorder with single episode, remission status unspecified F32.9 [place] [address] [id number] [address] [place] [phone] Aug, Lateral epicondylitis of rig ht elbow M77.11 [facility] [address] [id number] [address] [place] [phone] 16 Jul, 2016 Menopause Z78.0 [facility] [place] [address] [id number] [address] [place] [id number] 12 May, 2016 [facility] [address] [id number] [address] [place] [phone] 08 May, 2016 Well woman exam with routine gynecological exam Z01.419 ; Lateral epicondylitis of right elbow M77.11 and Chronic obstructive pulmonary disease, unspecified COPD type J44.9 [facility] [place] [address] [id number] [address] [place] [phone] Mar, Major depressive disorder wi th single episode, remission status unspecified F32.9 ; Chronic obstructive pulmonary disease, unspecified COPD type J44.9 ; Right elbow pain M25.521 and Menopause Z78.0 [facility] [address] [id number] [address] [place] [phone] 05 Mar, 2016 [place] [address] [id number] [address] [place] [phone] Feb, Right elbow pain M25.521 and Chronic obstructive pulmonary disease, unspecified COPD type J44.9 [facility] [place] [address] [facility] [id number] [address] [place] [phone] January, Anxiety disorder, unspecifie d F41.9 and Major depressive disorder, single episode, unspecified F32.9 [facility] [place] [address] [id number] [address] [place] [phone] Nov, [facility] [place] [address] [id number] [address] [place] [phone] Jun, [facility] [place] [address] [place] [id number] [address] [place] [phone] Jun, [facility] [place] [address] [place] [id number] [address] [place] [phone] Jun, [facility] [place] [address] [place] [id number] [address] [place] [phone] May, [facility] [place] [address] [id number] [address] [place] [phone] May, Sinusitis 473.9 [facility] [address] [place] [id number] [address] [place] [phone] May, [facility] [address] [place] [id number] [address] [place] [phone] Apr, Dysuria 788.1 ; Urinary trac t infection 599.0 ; Depression 311 ; Anxiety 300.00 and Muscle spasm 728.85 [facility] [place] [address] [id number] [address] [place] [phone] Apr, [facility] [address] [place] [id number] [address] [place] [phone] Apr, [facility] [address] [place] [id number] [address] [place] [phone] Apr, [facility] [address] [id number] [address] [place] [phone] Mar, Lateral epicondylitis of rig ht elbow 726.32 [facility] [address] [id number] [address] [place] [phone] Mar, [facility] [address] [id number] [address] [place] [phone] Feb, Anxiety 300.00 ; Tendonitis 726.90 ; Back spasm 724.8 and Lumbago 724.2 [facility] [address] [id number] [address] [place] [phone] Dec, [facility] [address] [id number] [address] [place] [phone] Dec, [facility] [address] [id number] [address] [place] [phone] Jun, [facility] [address] [id number] [address] [place] [phone] Jun, [facility] [address] [id number] [address] [place] [phone] Dec, [facility] [address] [id number] [address] [place] [phone] Dec, [facility] [address] [id number] [address] [place] [phone] Jun, [facility] [address] [id number] [address] [place] [phone] Jun, IMMUNIZATIONS No Known Immunizations SOCIAL HISTORY [...]
--- OUTSIDE RECORDS SUMMARY | 2020-03-13 07:30 | XMS REPORT ---
Author Author Bailey BILLY Organization [facility] Address [address] [place] [address] Care Team Providers Care Gas Systems Worker Name Role Phone KELLY BILLY Unavailable PROBLEMS Type Condition ICD9-CM Code QHI54-BM Code Onset Dates Condition S tatus SNOMED Code Problem Right elbow pain M25.521 Active 267 423944 Problem Major depressive disorder wi th single episode, remission status unspecified F32.9 Active 70847043 Problem Menopause Z78.0 Active 007487528 Problem Chronic obstructive pulmonary disease, unspecified COPD ty pe J44.9 Active 65824696 Problem Attention deficit hyperactivity disorder (ADHD), combi lars type F90.2 Active 97441556 Problem ADHD (attention deficit hyperactivity disorder), inattentive type F90.0 Active 29220017 Problem Well woman exam with routine gynecological exam Z0 1.419 Active 550025528 Problem Lateral epicondylitis of right elbow M77.11 Active 781113602 Problem Bipolar II disorder F31.81 Active 79268300 Problem Panic disorder with agoraphobia and moderate panic attacks F40.01 Active 9641077 ALLERGIES No Information ENCOUNTERS Encounter Location Date Diagnosis [facility] [address] [facility] [id number] [address] [place] [phone] Apr, [facility] [address] [place] [id number] [address] [place] [phone] Nov, [facility] [address] [place] [id number] [address] [place] [phone] Nov, [facility] [address] [place] [id number] [address] [place] [phone] Oct, Sore throat J02.9 and Nasoph aryngitis acute J00 [facility] [address] [place] [id number] [address] [place] [id number] May, Chronic obstructive pulmonar y disease, unspecified COPD type J44.9 [facility] [address] [id number] [address] [place] [phone] May, [facility] [address] [id number] [address] [place] [phone] Apr, Chronic obstructive pulmonar y disease, unspecified COPD type J44.9 [facility] [address] [id number] [address] [place] [phone] Apr, Chronic obstructive pulmonar y disease, unspecified COPD type J44.9 [facility] [address] [id number] [address] [place] [phone] Mar, [facility] [address] [id number] [address] [place] [id number] Mar, Dental caries K02.9 [facility] [address] [id number] [address] [place] [phone] January, Menopause Z78.0 [facility] [address] [id number] [address] [place] [phone] Dec, [facility] [address] [facility] [id number] [address] [place] [phone] Dec, [facility] [address] [id number] [address] [place] [phone] Dec, [facility] [address] [id number] [address] [place] [phone] Dec, [facility] [address] [facility] [id number] [address] [place] [phone] Nov, Chronic obstructive pulmonar y disease, unspecified COPD type J44.9 ; Right elbow pain M25.521 ; Menopause Z78.0 and Bipolar II disorder F31.81 [facility] [address] [id number] [address] [place] [phone] Oct, [facility] [address] [id number] [address] [place] [phone] Oct, [facility] [address] [id number] [address] [place] [phone] Oct, Bipolar II disorder F31.81 ; Panic disorder with agoraphobia and moderate panic attacks F40.01 and Attention deficit hyperactivity disorder (ADHD), combined type F90.2 [facility] [address] [id number] [address] [place] [phone] Oct, Lateral epicondylitis of rig ht elbow M77.11 [facility] [address] [id number] [address] [place] [phone] Sep, Lateral epicondylitis of rig ht elbow M77.11 and Major depressive disorder with single episode, remission status unspecified F32.9 [place] [id number] [id number] [address] [place] [phone] Aug, Lateral epicondylitis of rig ht elbow M77.11 [facility] [address] [id number] [address] [place] [phone] 16 Jul, 2016 Menopause Z78.0 [facility] [address] [id number] [address] [place] [phone] 12 May, 2016 [facility] [address] [id number] [address] [place] [phone] 08 May, 2016 Well woman exam with routine gynecological exam Z01.419 ; Lateral epicondylitis of right elbow M77.11 and Chronic obstructive pulmonary disease, unspecified COPD type J44.9 [facility] [address] [id number] [address] [place] [phone] Mar, Major depressive disorder wi th single episode, remission status unspecified F32.9 ; Chronic obstructive pulmonary disease, unspecified COPD type J44.9 ; Right elbow pain M25.521 and Menopause Z78.0 [facility] [address] [id number] [address] [place] [phone] 05 Mar, 2016 [place] [address] [id number] [address] [place] [phone] Feb, Right elbow pain M25.521 and Chronic obstructive pulmonary disease, unspecified COPD type J44.9 [facility] [address] [facility] [id number] [address] [place] [phone] January, Anxiety disorder, unspecifie d F41.9 and Major depressive disorder, single episode, unspecified F32.9 [facility] [address] [id number] [address] [place] [phone] Nov, [facility] [address] [id number] [address] [place] [phone] Jun, [facility] [address] [place] [id number] [address] [place] [phone] Jun, [facility] [address] [place] [id number] [address] [place] [phone] Jun, [facility] [address] [place] [id number] [address] [place] [phone] May, [facility] [address] [id number] [address] [place] [phone] May, Sinusitis 473.9 [facility] [address] [place] [id number] [address] [place] [phone] May, [facility] [address] [place] [id number] [address] [place] [phone] Apr, Dysuria 788.1 ; Urinary trac t infection 599.0 ; Depression 311 ; Anxiety 300.00 and Muscle spasm 728.85 [facility] [address] [id number] [address] [place] [phone] Apr, [facility] [address] [place] [id number] [address] [place] [phone] Apr, [facility] [address] [place] [id number] [address] [place] [phone] Apr, [facility] [address] [id number] [address] [place] [phone] Mar, Lateral epicondylitis of rig ht elbow 726.32 [facility] [address] [id number] [address] [place] [phone] Mar, [facility] [address] [id number] [address] [place] [phone] Feb, Anxiety 300.00 ; Tendonitis 726.90 ; Back spasm 724.8 and Lumbago 724.2 [facility] [address] [id number] [address] [place] [phone] Dec, [facility] [address] [id number] [address] [place] [phone] Dec, [facility] [address] [id number] [address] [place] [phone] Jun, [facility] [address] [id number] [address] [place] [phone] Jun, [facility] [address] [id number] [address] [place] [phone] Dec, [facility] [address] [id number] [address] [place] [phone] Dec, [facility] [address] [id number] [address] [place] [phone] Jun, [facility] [address] [id number] [address] [place] [phone] Jun, IMMUNIZATIONS No Known Immunizations SOCIAL HISTORY [...]
--- OUTSIDE RECORDS SUMMARY | 2020-03-13 07:30 | XMS REPORT ---
Author Author Bailey [facility] Address [address] [place] [address] Care Team Providers Care Otorhinolaryngologist Name Role Phone OTTODAVIDSABIHA Unavailable PROBLEMS Type Condition ICD9-CM Code [id number] Code Onset Dates Condition S tatus SNOMED Code Assessment Well woman exam with routine gynecological exam Z01.419 May, Active 572563012 Problem Well woman exam with routine gynecological exam Z0 1.419 Active 366514594 Problem Lateral epicondylitis of right elbow M77.11 Active 428642857 Problem Right elbow pain M25.521 Active 267 566855 Problem Menopause Z78.0 Active 299181619 Problem Major depressive disorder wi th single episode, remission status unspecified F32.9 Active 53184395 Problem Chronic obstructive pulmonary disease, unspecified COPD ty pe J44.9 Active 19489125 ALLERGIES Substance Reaction Event Type Date Status N.K.D.A. Unknown Non Drug Allergy May, Unknown SOCIAL HISTORY No smoking Hx information available PLAN OF CARE VITAL SIGNS Height 70 in 2016-05-15 Weight 139 lbs 2016-05-15 Heart Rate 84 bpm 2016-05-15 Respiratory Rate 22 2016-05-15 BMI 19.94 kg/m2 2016-05-15 Blood pressure systolic 104 mmHg 2016-05-15 Blood pressure diastolic 66 mmHg 2016-05-15 MEDICATIONS Medication Instructions Dosage Frequency Start Date End Date Duration S tatus Premarin 0.625 MG Orally Once a day 1 tablet 24h Mar, 30 day(s) Active Aspirin 81 MG Orally Once a day 1 tablet 24h Active Cyclobenzaprine HCl 10 mg Orally one daily prn 1 tablet Active Prozac 40 MG Orally Once a day 1 capsule in the morning 24h Active Prozac 20 mg Orally Once a day 1 capsule in the morning 24h Active Mobic 15 MG Orally Once a day 1 tablet 24h A ctive Symbicort 160-4.5 MCG/ACT INHALE TWO PUFFS BY MOUTH TWICE DAILY Active RESULTS Name Result Date Reference Range PAP TEST, HPV IF ASCUS 2016-05-15 DIAGNOSIS: Specimen adequacy: Clinician provided ICD10: Performed by: QC reviewed by: . . Pathologist provided ICD10: Note: . TSH 2016-05-15 TSH 3.100 0.450-4.500 CBC 2016-05-15 WBC 8.6 3.4-10.8 RBC 4.68 3.77-5.28 Hemoglobin 13.4 11.1-15.9 Hematocrit 38.9 34.0-46.6 MCV 83 79-97 MCH 28.6 26.6-33.0 MCHC 34.4 31.5-35.7 RDW 13.9 12.3-15.4 Platelets 401 150-379 Neutrophils 67 Lymphs 19 Monocytes 9 Eos 4 Basos 1 Neutrophils (Absolute) 5.8 1.4-7.0 Lymphs (Absolute) 1.6 0.7-3.1 Monocytes(Absolute) 0.8 0.1-0.9 Eos (Absolute) 0.3 0.0-0.4 Baso (Absolute) 0.1 0.0-0.2 Immature Granulocytes 0 Immature Grans (Abs) 0.0 0.0-0.1 CULTURE, GENITAL 2016-05-15 Genital Culture, Routine Final report Result 1 LIPID PANEL 2016-05-15 Cholesterol, Total 214 100-199 Triglycerides 84 0-149 HDL Cholesterol 76 >39 VLDL Cholesterol Juan 17 5-40 LDL Cholesterol Calc 121 0-99 CMP 2016-05-15 Glucose, Serum 101 65-99 BUN 7 6-24 Creatinine, Serum 0.69 0.57-1.00 eGFR If NonAfricn Am 103 >59 eGFR If Africn Am 118 >59 BUN/Creatinine Ratio 10 9-23 Sodium, Serum 144 134-144 Potassium, Serum 4.2 3.5-5.2 Chloride, Serum 101 97-108 Carbon Dioxide, Total 26 18-29 Calcium, Serum 9.9 8.7-10.2 Protein, Total, Serum 7.5 6.0-8.5 Albumin, Serum 4.6 3.5-5.5 Globulin, Total 2.9 1.5-4.5 A/G Ratio 1.6 1.1-2.5 Bilirubin, Total 0.5 0.0-1.2 Alkaline Phosphatase, S 62 39-117 AST (SGOT) 18 0-40 ALT (SGPT) 16 0-32 TRICHOMONAS (IN HOUSE) 2016-05-15 TRICHOMONAS negative Control + Lot # [id number] Exp date 05/2017 PDF Report 2016-05-15 PDF Report1 LCLS BACTERIAL VAGINOSIS (IN HOUSE) 2016-05-15 RESULTS positive Control + Lot # [id number] Exp date 11/2016 GC/CHLAM PROBE (STATE) 2016-05-15 CHLAMYDIA GC PROCEDURES Procedure Date Ordered Related Diagnosis Body Site VENIPUNCT, ROUTINE* May 15, 2016 CULTURE, BACTERIA, OTHER May 15, 2016 COMPLETE CBC W/AUTO DIFF WBC May 15, 2016 COMPREHEN METABOLIC PANEL May 15, 2016 No Charge May 15, 2016 TRICHOMONAS ASSAY W/OPTIC May 15, 2016 Office Visit, Est Pt., Level 4 May 15, 2016 ASSAY THYROID STIM HORMONE May 15, 2016 LIPID PANEL May 15, 2016 GAMA VAG, DNA, DIR PROBE May 15, 2016 SPECIMEN HANDLING May 15, 2016 IMMUNIZATIONS No Known Immunizations
--- OUTSIDE RECORDS SUMMARY | 2020-03-13 07:30 | XMS REPORT ---
Author Author Bailey GONZALEZ Organization [facility] Address [address] [place] [address] Care Team Providers Care Straightening Press Operator Helper Name Role Phone JAZMINE GONZALEZ Unavailable PROBLEMS Type Condition ICD9-CM Code [id number] Code Onset Dates Condition S tatus SNOMED Code Problem Right elbow pain M25.521 Active 267 142136 Problem Major depressive disorder wi th single episode, remission status unspecified F32.9 Active 72870674 Problem Menopause Z78.0 Active 104126485 Problem Chronic obstructive pulmonary disease, unspecified COPD ty pe J44.9 Active 79825363 Problem Attention deficit hyperactivity disorder (ADHD), combi lars type F90.2 Active 43708808 Problem ADHD (attention deficit hyperactivity disorder), inattentive type F90.0 Active 07903519 Problem Well woman exam with routine gynecological exam Z0 1.419 Active 061014623 Problem Lateral epicondylitis of right elbow M77.11 Active 973660543 Problem Bipolar II disorder F31.81 Active 51986564 Problem Panic disorder with agoraphobia and moderate panic attacks F40.01 Active 5669924 ALLERGIES No Information ENCOUNTERS Encounter Location Date Diagnosis [facility] [address] [facility] [id number] [address] [place] [phone] Feb, [facility] [address] [facility] [id number] [address] [place] [phone] Nov, [facility] [address] [place] [id number] [address] [place] [phone] Nov, [facility] [address] [facility] [id number] [address] [place] [phone] Oct, Sore throat J02.9 and Nasoph aryngitis acute J00 [facility] [address] [facility] [id number] [address] [place] [phone] May, Chronic obstructive pulmonar y disease, unspecified COPD type J44.9 [facility] [address] [id number] [address] [place] [phone] May, [facility] [address] [id number] [address] [place] [phone] Apr, Chronic obstructive pulmonar y disease, unspecified COPD type J44.9 [facility] [address] [id number] [address] [place] [phone] Apr, Chronic obstructive pulmonar y disease, unspecified COPD type J44.9 [facility] [address] [id number] [address] [place] [phone] Mar, [facility] [address] [id number] [address] [place] [id number] Mar, Dental caries K02.9 [facility] [address] [id number] [address] [place] [phone] January, Menopause Z78.0 [facility] [address] [id number] [address] [place] [phone] Dec, [facility] [address] [id number] [address] [place] [phone] Dec, [facility] [address] [id number] [address] [place] [phone] Dec, [facility] [address] [id number] [address] [place] [phone] Dec, [facility] [address] [id number] [address] [place] [phone] Nov, Chronic obstructive pulmonar y disease, unspecified COPD type J44.9 ; Right elbow pain M25.521 ; Menopause Z78.0 and Bipolar II disorder F31.81 [facility] [address] [id number] [address] [place] [phone] Oct, [facility] [address] [id number] [address] [place] [phone] Oct, [facility] [address] [id number] [address] [place] [phone] Oct, Bipolar II disorder F31.81 ; Panic disorder with agoraphobia and moderate panic attacks F40.01 and Attention deficit hyperactivity disorder (ADHD), combined type F90.2 [facility] [address] [id number] [address] [place] [phone] Oct, Lateral epicondylitis of rig ht elbow M77.11 [facility] [address] [id number] [address] [place] [id number] Sep, Lateral epicondylitis of rig ht elbow M77.11 and Major depressive disorder with single episode, remission status unspecified F32.9 [facility] [address] [id number] [address] [place] [phone] Aug, Lateral epicondylitis of rig ht elbow M77.11 [facility] [address] [id number] [address] [place] [phone] Jul, Menopause Z78.0 [facility] [address] [id number] [address] [place] [phone] May, [facility] [address] [id number] [address] [place] [phone] 08 May, 2016 Well woman exam with routine gynecological exam Z01.419 ; Lateral epicondylitis of right elbow M77.11 and Chronic obstructive pulmonary disease, unspecified COPD type J44.9 [facility] [address] [id number] [address] [place] [phone] Mar, Major depressive disorder wi th single episode, remission status unspecified F32.9 ; Chronic obstructive pulmonary disease, unspecified COPD type J44.9 ; Right elbow pain M25.521 and Menopause Z78.0 [facility] [address] [id number] [address] [place] [phone] Mar, [facility] [address] [facility] [id number] [address] [place] [phone] Feb, Right elbow pain M25.521 and Chronic obstructive pulmonary disease, unspecified COPD type J44.9 [facility] [address] [facility] [id number] [address] [place] [phone] January, Anxiety disorder, unspecifie d F41.9 and Major depressive disorder, single episode, unspecified F32.9 [facility] [address] [facility] [id number] [address] [place] [phone] Nov, [facility] [address] [facility] [id number] [address] [place] [phone] Jun, [facility] [address] [place] [id number] [address] [place] [phone] Jun, [facility] [address] [place] [id number] [place] [phone] Jun, [facility] [address] [place] [id number] [address] [place] [phone] May, [facility] [address] [place] [id number] [address] [place] [phone] May, Sinusitis 473.9 [facility] [address] [place] [id number] [address] [place] [phone] May, [facility] [address] [place] [id number] [address] [place] [phone] Apr, Dysuria 788.1 ; Urinary trac t infection 599.0 ; Depression 311 ; Anxiety 300.00 and Muscle spasm 728.85 [facility] [address] [facility] [id number] [address] [place] [phone] Apr, [facility] [address] [id number] [address] [place] [phone] Apr, [facility] [address] [place] [id number] [address] [place] [phone] Apr, [facility] [address] [place] [address] [id number] [place] [phone] Mar, Lateral epicondylitis of rig ht elbow 726.32 [facility] [address] [id number] [address] [place] [phone] Mar, [facility] [address] [id number] [address] [place] [phone] Feb, Anxiety 300.00 ; Tendonitis 726.90 ; Back spasm 724.8 and Lumbago 724.2 [facility] [address] [id number] [address] [place] [phone] Dec, [facility] [address] [id number] [address] [place] [phone] Dec, [facility] [address] [id number] [address] [place] [phone] Jun, [facility] [address] [id number] [address] [place] [phone] Jun, [facility] [address] [id number] [address] [place] [phone] Dec, [facility] [address] [id number] [address] [place] [phone] Dec, [facility] [address] [id number] [address] [place] [phone] Jun, [facility] [address] [id number] [address] [place] [phone] Jun, IMMUNIZATIONS No Known Immunizations SOCIAL HISTORY [...]
--- OUTSIDE RECORDS SUMMARY | 2020-03-13 07:30 | XMS REPORT ---
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
--- OUTSIDE RECORDS SUMMARY | 2020-03-13 07:30 | XMS REPORT ---
Author Author Bailey OTTO Organization [facility] Address [address] [place] [address] Care Team Providers Care Scientific Programmer Analyst Name Role Phone SABIHA OTTO Unavailable PROBLEMS Type Condition ICD9-CM Code [id number] Code Onset Dates Condition S tatus SNOMED Code Problem Right elbow pain M25.521 Active 267 518644 Problem Major depressive disorder wi th single episode, remission status unspecified F32.9 Active 16981099 Problem Menopause Z78.0 Active 031472951 Problem Chronic obstructive pulmonary disease, unspecified COPD ty pe J44.9 Active 10513559 Problem Attention deficit hyperactivity disorder (ADHD), combi lars type F90.2 Active 48252806 Problem ADHD (attention deficit hyperactivity disorder), inattentive type F90.0 Active 00097248 Problem Well woman exam with routine gynecological exam Z0 1.419 Active 159005894 Problem Lateral epicondylitis of right elbow M77.11 Active 590459410 Problem Bipolar II disorder F31.81 Active 06877121 Problem Panic disorder with agoraphobia and moderate panic attacks F40.01 Active 4811710 ALLERGIES No Information SOCIAL HISTORY Never Assessed PLAN OF CARE VITAL SIGNS MEDICATIONS Medication Instructions Dosage Frequency Start Date End Date Duration S tatus Premarin 0.625 MG Orally Once a day 1 tablet 24h Mar, Active Breo Ellipta 200-25 MCG/INH Inhalation Once a day 1 puff 24h Dec Active RESULTS No Results PROCEDURES No Known procedures IMMUNIZATIONS No Known Immunizations MEDICAL (GENERAL) HISTORY Type Description Date Medical History depression Medical History elbow pain Surgical History section 1985 Surgical History cataract both eyes Surgical History left arm rotator cuff Hospitalization History surgical only
--- OUTSIDE RECORDS SUMMARY | 2020-03-13 07:30 | XMS REPORT ---
Author Author Bailey RODRIGUEZ Organization [facility] Address Unknown Care Team Providers Care Portable Router Operator Name Role Phone JOSAFAT RODRIGUEZ Unavailable PROBLEMS Type Condition ICD9-CM Code RFI32-MQ Code Onset Dates Condition S tatus SNOMED Code Problem Right elbow pain M25.521 Active 267 684663 Problem Major depressive disorder wi th single episode, remission status unspecified F32.9 Active 34696934 Problem Menopause Z78.0 Active 722118008 Problem Chronic obstructive pulmonary disease, unspecified COPD ty pe J44.9 Active 53767956 Problem Attention deficit hyperactivity disorder (ADHD), combi lars type F90.2 Active 87646075 Problem ADHD (attention deficit hyperactivity disorder), inattentive type F90.0 Active 82052991 Problem Well woman exam with routine gynecological exam Z0 1.419 Active 839741575 Problem Lateral epicondylitis of right elbow M77.11 Active 188411940 Problem Bipolar II disorder F31.81 Active 50391439 Problem Panic disorder with agoraphobia and moderate panic attacks F40.01 Active 4548887 ALLERGIES No Known Allergies ENCOUNTERS Encounter Location Date Diagnosis [facility] [address] [place] [id number] [address] [place] [phone] January, [facility] [address] [place] [id number] [address] [place] [phone] Nov, [facility] [address] [place] [id number] [address] [place] [phone] Nov, [facility] [address] [id number] [address] [place] [phone] Oct, Sore throat J02.9 and Nasoph aryngitis acute J00 [facility] [address] [place] [id number] [address] [place] [phone] May, Chronic obstructive pulmonar y disease, unspecified COPD type J44.9 [facility] [address] [id number] [address] [place] [phone] May, [facility] [address] [id number] [address] [place] [phone] Apr, Chronic obstructive pulmonar y disease, unspecified COPD type J44.9 [facility] [address] [id number] [address] [place] [phone] Apr, Chronic obstructive pulmonar y disease, unspecified COPD type J44.9 [facility] [address] [id number] [address] [place] [phone] Mar, [facility] [address] [id number] [address] [place] [id number] Mar, Dental caries K02.9 [facility] [address] [id number] [address] [place] [phone] January, Menopause Z78.0 [facility] [address] [id number] [address] [place] [phone] Dec, [facility] [address] [id number] [address] [place] [phone] Dec, [facility] [address] [facility] [id number] [address] [place] [phone] Dec, [facility] [address] [id number] [address] [place] [phone] Dec, [facility] [address] [id number] [address] [place] [phone] Nov, Chronic obstructive pulmonar y disease, unspecified COPD type J44.9 ; Right elbow pain M25.521 ; Menopause Z78.0 and Bipolar II disorder F31.81 [facility] [address] [id number] [address] [place] [phone] Oct, [facility] [address] [id number] [address] [place] [phone] Oct, [facility] [address] [id number] [address] [place] [phone] Oct, Bipolar II disorder F31.81 ; Panic disorder with agoraphobia and moderate panic attacks F40.01 and Attention deficit hyperactivity disorder (ADHD), combined type F90.2 [facility] [address] [id number] [address] [place] [phone] Oct, Lateral epicondylitis of rig ht elbow M77.11 [facility] [address] [id number] [address] [place] [phone] Sep, Lateral epicondylitis of rig ht elbow M77.11 and Major depressive disorder with single episode, remission status unspecified F32.9 [place] [address] [id number] [address] [place] [phone] Aug, Lateral epicondylitis of rig ht elbow M77.11 [facility] [address] [id number] [address] [place] [phone] Jul, Menopause Z78.0 [facility] [address] [id number] [address] [place] [phone] 12 May, 2016 [facility] [address] [id number] [address] [place] [phone] 08 May, 2016 Well woman exam with routine gynecological exam Z01.419 ; Lateral epicondylitis of right elbow M77.11 and Chronic obstructive pulmonary disease, unspecified COPD type J44.9 [facility] [address] [id number] [address] [place] [phone] Mar, Major depressive disorder wi th single episode, remission status unspecified F32.9 ; Chronic obstructive pulmonary disease, unspecified COPD type J44.9 ; Right elbow pain M25.521 and Menopause Z78.0 [facility] [address] [id number] [address] [place] [phone] 05 Mar, 2016 [facility] [address] [id number] [address] [place] [phone] Feb, Right elbow pain M25.521 and Chronic obstructive pulmonary disease, unspecified COPD type J44.9 [facility] [address] [id number] [address] [place] [phone] January, Anxiety disorder, unspecifie d F41.9 and Major depressive disorder, single episode, unspecified F32.9 [facility] [address] [id number] [address] [place] [phone] Nov, [facility] [address] [id number] [address] [place] [phone] Jun, [facility] [address] [id number] [address] [place] [phone] Jun, [facility] [address] [facility] [id number] [address] [place] [phone] Jun, [facility] [address] [facility] [id number] [address] [place] [phone] May, [facility] [address] [facility] [id number] [address] [place] [phone] May, Sinusitis 473.9 [facility] [address] [facility] [id number] [address] [place] [phone] May, [facility] [address] [facility] [id number] [address] [place] [phone] Apr, Dysuria 788.1 ; Urinary trac t infection 599.0 ; Depression 311 ; Anxiety 300.00 and Muscle spasm 728.85 [facility] [address] [id number] [address] [place] [phone] Apr, [facility] [address] [facility] [id number] [address] [place] [phone] Apr, [facility] [address] [facility] [id number] [address] [place] [phone] Apr, [facility] [address] [id number] [address] [place] [phone] Mar, Lateral epicondylitis of rig ht elbow 726.32 [facility] [address] [id number] [address] [place] [phone] Mar, [facility] [address] [id number] [address] [place] [phone] Feb, Anxiety 300.00 ; Tendonitis 726.90 ; Back spasm 724.8 and Lumbago 724.2 [facility] [address] [id number] [address] [place] [phone] Dec, [facility] [address] [id number] [address] [place] [phone] Dec, [facility] [address] [id number] [address] [place] [phone] Jun, [facility] [address] [id number] [address] [place] [phone] Jun, [facility] [address] [id number] [address] [place] [phone] Dec, [facility] [address] [id number] [address] [place] [phone] Dec, [facility] [address] [id number] [address] [place] [phone] Jun, [facility] [address] [id number] [address] [place] [phone] Jun, IMMUNIZATIONS No Known Immunizations SOCIAL HISTORY Never Assessed REASON FOR VISIT nilda PLAN OF CARE Activity Details Follow Up prn Reason: VITAL SIGNS Height 70 in 2017-03-18 MEDICATIONS Medication Instructions Dosage Frequency Start Date End Date Duration S tatus Mobic 15 MG Orally Once a day 1 tablet 24h A ctive Latuda 20 mg Orally Once a day with evening meal 1 tablet 2 1 Oct, 2016 90 days Active Prozac 20 mg Orally Once a day 1 capsule in the morning 24h 90 days Active Cyclobenzaprine HCl 10 mg Orally one daily prn 1 tablet Active Prozac 40 mg Orally Once a day 1 capsule in the morning 24h 90 days Active Breo Ellipta 200-25 MCG/INH Inhalation Once a day 1 puff 24h Dec Active Fluoxetine Active Aspirin 81 MG Orally Once a day 1 tablet 24h Active Premarin 0.625 MG Orally Once a day 1 tablet 24h Mar, Active Symbicort 160-4.5 MCG/ACT Inhalation Twice a day INHALE TWO PUFFS BY MOUTH TWICE DAILY 12h Active RESULTS No Results PROCEDURES Procedure Date Ordered Result Body Site LTD ORAL EVALUATION - PROBLEM FOCUS March 18, 2017 INTRAORL-PERIAPICAL 1 FILM [id number] March 18, 2017 EXTRAC ERUPTED TOOTH/EXPOSED ROOT March 18, 2017 INTRAORL-PERIAPICAL 1 FILM [id number] March 18, 2017 INSTRUCTIONS MEDICATIONS ADMINISTERED No Known Medications MEDICAL (GENERAL) HISTORY Type Description Date Medical History depression Medical History elbow pain Surgical History section 1985 Surgical History cataract both eyes Surgical History left arm rotator cuff Hospitalization History surgical only
--- OUTSIDE RECORDS SUMMARY | 2020-03-13 07:30 | XMS REPORT ---
Author Author Bailey OTTO Organization [facility] Address [address] [place] [address] Care Team Providers Care Pole Tester Name Role Phone SABIHA OTTO Unavailable PROBLEMS Type Condition ICD9-CM Code [id number] Code Onset Dates Condition S tatus SNOMED Code Problem Right elbow pain M25.521 Active 267 905811 Problem Major depressive disorder wi th single episode, remission status unspecified F32.9 Active 87633072 Problem Menopause Z78.0 Active 591100557 Problem Chronic obstructive pulmonary disease, unspecified COPD ty pe J44.9 Active 84421940 Problem Attention deficit hyperactivity disorder (ADHD), combi lars type F90.2 Active 87813490 Problem ADHD (attention deficit hyperactivity disorder), inattentive type F90.0 Active 60169230 Problem Well woman exam with routine gynecological exam Z0 1.419 Active 603875503 Problem Lateral epicondylitis of right elbow M77.11 Active 372411697 Problem Bipolar II disorder F31.81 Active 23678627 Problem Panic disorder with agoraphobia and moderate panic attacks F40.01 Active 0946839 ALLERGIES No Information SOCIAL HISTORY Never Assessed PLAN OF CARE VITAL SIGNS MEDICATIONS Medication Instructions Dosage Frequency Start Date End Date Duration S tatus Prozac 40 mg Orally Once a day 1 capsule in the morning 24h 17 days Active Cyclobenzaprine HCl 10 mg Orally one daily prn 1 tablet 17 days Active Prozac 20 mg Orally Once a day 1 capsule in the morning 24h 17 days Active RESULTS No Results PROCEDURES No Known procedures IMMUNIZATIONS No Known Immunizations MEDICAL (GENERAL) HISTORY Type Description Date Medical History depression Medical History elbow pain Surgical History section 1985 Surgical History cataract both eyes Surgical History left arm rotator cuff Hospitalization History surgical only
--- OUTSIDE RECORDS SUMMARY | 2020-03-13 07:30 | XMS REPORT ---
Author Author Bailey Zambrano Organization [facility] Address [address] [place] [address] Care Team Providers Care Automatic Furnace Operator Name Role Phone SABIHA Zambrano Unavailable PROBLEMS Type Condition ICD9-CM Code DIH12-JK Code Onset Dates Condition S tatus SNOMED Code Problem Right elbow pain M25.521 Active 267 705308 Problem Major depressive disorder wi th single episode, remission status unspecified F32.9 Active 52768811 Problem Menopause Z78.0 Active 250017676 Problem Chronic obstructive pulmonary disease, unspecified COPD ty pe J44.9 Active 23800220 Problem Attention deficit hyperactivity disorder (ADHD), combi lars type F90.2 Active 60576840 Problem ADHD (attention deficit hyperactivity disorder), inattentive type F90.0 Active 40704395 Problem Well woman exam with routine gynecological exam Z0 1.419 Active 570505941 Problem Lateral epicondylitis of right elbow M77.11 Active 548699193 Problem Bipolar II disorder F31.81 Active 01838174 Problem Panic disorder with agoraphobia and moderate panic attacks F40.01 Active 0280298 ALLERGIES No Information ENCOUNTERS Encounter Location Date Diagnosis [facility] [address] [id number] [address] [place] [phone] January, [facility] [address] [id number] [address] [place] [phone] Nov, [facility] [address] [id number] [address] [place] [phone] Nov, [facility] [address] [id number] [address] [place] [phone] Oct, Sore throat J02.9 and Nasoph aryngitis acute J00 [facility] [address] [id number] [address] [place] [phone] May, Chronic obstructive pulmonar y disease, unspecified COPD type J44.9 [facility] [address] [id number] [address] [place] [phone] May, [facility] [address] [facility] [id number] [address] [place] [id number] Apr, Chronic obstructive pulmonar y disease, unspecified COPD type J44.9 [facility] [address] [id number] [address] [place] [phone] Apr, Chronic obstructive pulmonar y disease, unspecified COPD type J44.9 [facility] [address] [id number] [address] [place] [phone] Mar, [facility] [address] [id number] [address] [place] [id number] Mar, Dental caries K02.9 [facility] [address] [facility] [id number] [address] [place] [phone] January, Menopause Z78.0 [facility] [address] [facility] [id number] [address] [place] [phone] Dec, [facility] [address] [facility] [id number] [address] [place] [phone] Dec, [facility] [address] [facility] [id number] [address] [place] [phone] Dec, [facility] [address] [facility] [id number] [address] [place] [phone] Dec, [facility] [address] [facility] [id number] [address] [place] [phone] Nov, Chronic obstructive pulmonar y disease, unspecified COPD type J44.9 ; Right elbow pain M25.521 ; Menopause Z78.0 and Bipolar II disorder F31.81 [facility] [address] [facility] [id number] [address] [place] [phone] Oct, [facility] [address] [id number] [address] [place] [phone] Oct, [facility] [address] [id number] [address] [place] [phone] Oct, Bipolar II disorder F31.81 ; Panic disorder with agoraphobia and moderate panic attacks F40.01 and Attention deficit hyperactivity disorder (ADHD), combined type F90.2 [facility] [address] [id number] [address] [place] [phone] Oct, Lateral epicondylitis of rig ht elbow M77.11 [place] [address] [id number] [address] [place] [phone] Sep, Lateral epicondylitis of rig ht elbow M77.11 and Major depressive disorder with single episode, remission status unspecified F32.9 [place] [address] [id number] [address] [place] [phone] Aug, Lateral epicondylitis of rig ht elbow M77.11 [facility] [address] [id number] [address] [place] [phone] 16 Jul, 2016 Menopause Z78.0 [place] [address] [id number] [address] [place] [id number] 12 May, 2016 [facility] [address] [id number] [address] [place] [phone] 08 May, 2016 Well woman exam with routine gynecological exam Z01.419 ; Lateral epicondylitis of right elbow M77.11 and Chronic obstructive pulmonary disease, unspecified COPD type J44.9 [facility] [address] [id number] [address] [place] [phone] Mar, Major depressive disorder wi th single episode, remission status unspecified F32.9 ; Chronic obstructive pulmonary disease, unspecified COPD type J44.9 ; Right elbow pain M25.521 and Menopause Z78.0 [facility] [address] [id number] [address] [place] [id number] Mar, [facility] [address] [id number] [address] [place] [id number] Feb, Right elbow pain M25.521 and Chronic obstructive pulmonary disease, unspecified COPD type J44.9 [facility] [address] [id number] [address] [place] [phone] January, Anxiety disorder, unspecifie d F41.9 and Major depressive disorder, single episode, unspecified F32.9 [facility] [address] [id number] [address] [place] [phone] Nov, [facility] [address] [id number] [address] [place] [phone] Jun, [facility] [address] [id number] [address] [place] [phone] Jun, [facility] [address] [id number] [address] [place] [id number] Jun, [facility] [address] [id number] [address] [place] [id number] May, [facility] [address] [facility] [id number] [address] [place] [phone] May, Sinusitis 473.9 [facility] [address] [facility] [id number] [address] [place] [id number] May, [facility] [address] [id number] [address] [place] [id number] Apr, Dysuria 788.1 ; Urinary trac t infection 599.0 ; Depression 311 ; Anxiety 300.00 and Muscle spasm 728.85 [facility] [address] [facility] [id number] [address] [place] [phone] Apr, [facility] [address] [facility] [id number] [address] [place] [phone] Apr, [facility] [address] [id number] [address] [place] [phone] Apr, [facility] [address] [id number] [address] [place] [id number] Mar, Lateral epicondylitis of rig ht elbow 726.32 [facility] [address] [id number] [address] [place] [id number] Mar, [facility] [address] [id number] [address] [place] [phone] Feb, Anxiety 300.00 ; Tendonitis 726.90 ; Back spasm 724.8 and Lumbago 724.2 [facility] [address] [id number] [address] [place] [phone] Dec, [facility] [address] [id number] [address] [place] [phone] Dec, [facility] [address] [id number] [address] [place] [phone] Jun, [facility] [address] [id number] [address] [place] [phone] Jun, [facility] [address] [id number] [address] [place] [id number] Dec, [facility] [address] [id number] [address] [place] [phone] Dec, [facility] [address] [id number] [address] [place] [phone] Jun, [facility] [address] [id number] [address] [place] [phone] Jun, IMMUNIZATIONS No Known Immunizations SOCIAL HISTORY Never Assessed REASON FOR VISIT Pals- Symbicort PLAN OF CARE VITAL SIGNS MEDICATIONS Medication [...]
--- OUTSIDE RECORDS SUMMARY | 2020-03-13 07:30 | XMS REPORT ---
Author Author Bailey Zambrano Organization [facility] Address [address] [place] [address] Care Team Providers Care Pumping Station Engineer Name Role Phone SABIHA Zambrano Unavailable PROBLEMS Type Condition ICD9-CM Code RIR77-EU Code Onset Dates Condition S tatus SNOMED Code Problem Right elbow pain M25.521 Active 267 120659 Problem Major depressive disorder wi th single episode, remission status unspecified F32.9 Active 63660844 Problem Menopause Z78.0 Active 310432104 Problem Chronic obstructive pulmonary disease, unspecified COPD ty pe J44.9 Active 96599199 Problem Attention deficit hyperactivity disorder (ADHD), combi lars type F90.2 Active 35839107 Problem ADHD (attention deficit hyperactivity disorder), inattentive type F90.0 Active 14438797 Problem Well woman exam with routine gynecological exam Z0 1.419 Active 448735246 Problem Lateral epicondylitis of right elbow M77.11 Active 624283114 Problem Bipolar II disorder F31.81 Active 10281894 Problem Panic disorder with agoraphobia and moderate panic attacks F40.01 Active 6107576 ALLERGIES No Information ENCOUNTERS Encounter Location Date Diagnosis [facility] [address] [id number] [address] [place] [id number] Dec, [facility] [address] [id number] [address] [place] [phone] Nov, [facility] [address] [id number] [address] [place] [phone] Nov, [facility] [address] [id number] [address] [place] [phone] Oct, Sore throat J02.9 and Nasoph aryngitis acute J00 [facility] [address] [id number] [address] [place] [phone] May, Chronic obstructive pulmonar y disease, unspecified COPD type J44.9 [facility] [address] [id number] [address] [place] [phone] May, [facility] [address] [facility] [id number] [address] [place] [phone] Apr, Chronic obstructive pulmonar y disease, unspecified COPD type J44.9 [facility] [address] [id number] [address] [place] [phone] Apr, Chronic obstructive pulmonar y disease, unspecified COPD type J44.9 [facility] [address] [id number] [address] [place] [phone] Mar, [facility] [address] [id number] [address] [place] [id number] Mar, Dental caries K02.9 [facility] [address] [facility] [id number] [address] [place] [phone] January, Menopause Z78.0 [facility] [address] [facility] [id number] [address] [place] [phone] Dec, [facility] [address] [facility] [id number] [address] [place] [phone] Dec, [facility] [address] [facility] [id number] [address] [place] [phone] Dec, [facility] [address] [facility] [id number] [address] [place] [phone] Dec, [facility] [address] [facility] [id number] [address] [place] [phone] Nov, Chronic obstructive pulmonar y disease, unspecified COPD type J44.9 ; Right elbow pain M25.521 ; Menopause Z78.0 and Bipolar II disorder F31.81 [facility] [address] [facility] [id number] [address] [place] [phone] Oct, [facility] [address] [id number] [address] [place] [phone] Oct, [facility] [address] [id number] [address] [place] [phone] Oct, Bipolar II disorder F31.81 ; Panic disorder with agoraphobia and moderate panic attacks F40.01 and Attention deficit hyperactivity disorder (ADHD), combined type F90.2 [facility] [address] [id number] [address] [place] [id number] Oct, Lateral epicondylitis of rig ht elbow M77.11 [place] [address] [id number] [address] [place] [phone] Sep, Lateral epicondylitis of rig ht elbow M77.11 and Major depressive disorder with single episode, remission status unspecified F32.9 [place] [address] [id number] [address] [place] [phone] Aug, Lateral epicondylitis of rig ht elbow M77.11 [facility] [address] [id number] [address] [place] [id number] 16 Jul, 2016 Menopause Z78.0 [place] [address] [id number] [address] [place] [phone] 12 May, 2016 [facility] [address] [id number] [address] [place] [phone] 08 May, 2016 Well woman exam with routine gynecological exam Z01.419 ; Lateral epicondylitis of right elbow M77.11 and Chronic obstructive pulmonary disease, unspecified COPD type J44.9 [facility] [address] [id number] [address] [place] [phone] Mar, Major depressive disorder wi th single episode, remission status unspecified F32.9 ; Chronic obstructive pulmonary disease, unspecified COPD type J44.9 ; Right elbow pain M25.521 and Menopause Z78.0 [facility] [address] [id number] [address] [place] [phone] Mar, [facility] [address] [id number] [address] [place] [phone] Feb, Right elbow pain M25.521 and Chronic obstructive pulmonary disease, unspecified COPD type J44.9 [facility] [address] [id number] [address] [place] [phone] January, Anxiety disorder, unspecifie d F41.9 and Major depressive disorder, single episode, unspecified F32.9 [facility] [address] [id number] [address] [place] [phone] Nov, [facility] [address] [id number] [address] [place] [phone] Jun, [facility] [address] [id number] [address] [place] [phone] Jun, [facility] [address] [id number] [address] [place] [phone] Jun, [facility] [address] [id number] [address] [place] [phone] May, [facility] [address] [facility] [id number] [address] [place] [phone] May, Sinusitis 473.9 [facility] [address] [facility] [id number] [address] [place] [phone] May, [facility] [address] [id number] [address] [place] [phone] Apr, Dysuria 788.1 ; Urinary trac t infection 599.0 ; Depression 311 ; Anxiety 300.00 and Muscle spasm 728.85 [facility] [address] [facility] [id number] [address] [place] [phone] Apr, [facility] [address] [facility] [id number] [address] [place] [phone] Apr, [facility] [id number] [address] [place] [id number] Apr, [facility] [address] [id number] [address] [place] [phone] Mar, Lateral epicondylitis of rig ht elbow 726.32 [facility] [address] [id number] [address] [place] [phone] Mar, [facility] [address] [id number] [address] [place] [phone] Feb, Anxiety 300.00 ; Tendonitis 726.90 ; Back spasm 724.8 and Lumbago 724.2 [facility] [address] [id number] [address] [place] [phone] Dec, [facility] [address] [id number] [address] [place] [phone] Dec, [facility] [address] [id number] [address] [place] [phone] Jun, [facility] [address] [id number] [address] [place] [phone] Jun, [facility] [address] [id number] [address] [place] [phone] Dec, [facility] [address] [id number] [address] [place] [id number] Dec, [facility] [address] [id number] [address] [place] [phone] Jun, [facility] [address] [id number] [address] [place] [phone] Jun, IMMUNIZATIONS No Known Immunizations SOCIAL HISTORY Never Assessed REASON FOR VISIT Medication refill request PLAN OF CARE VITAL SIGNS MEDICATIONS Medication Instructions Dosage Frequency Start Date End Date Duration S tatus Latuda 20 mg Orally Once a day with evening meal 1 tablet 2 1 Oct, 2016 30 days Active Breo Ellipta 200-25 MCG/INH Inhalation Once a day 1 puff 24h Dec, Apr, 30 days Active RESULTS No Results PROCEDURES No Known procedures INSTRUCTIONS MEDICATIONS ADMINISTERED No Known Medications MEDICAL (GENERAL) HISTORY Type Description Date Medical History depression Medical History elbow pain Surgical History section 1985 Surgical History cataract both eyes Surgical History left arm rotator cuff Hospitalization History surgical only
--- OUTSIDE RECORDS SUMMARY | 2020-03-13 07:30 | XMS REPORT ---
Author Author Bailey AMARO Organization [employer] Address Unknown Phone Unavailable Care Team Providers Care Wireless Retail Manager Name Role Phone JOY AMARO CP Unavailable Allergies No Known Allergies Problems Problem Type Condition ICD-9 Code Onset Dates Condition Statu s Problem Acute pharyngitis 462 Active Problem Need for prophylactic vaccination and inoculation, Inf luenza V04.81 Active Medications Medication Code System Code Instructions Start Date End Date Status Dosage Symbicort [facility] [id number] 160-4.5 MCG/ACT Inhalation Twice a day 2 puffs Results No Known Results Summary Purpose [employer] Submission
--- OUTSIDE RECORDS SUMMARY | 2020-03-13 07:30 | XMS REPORT ---
Author Author Bailey BILLY Organization [facility] Address [address] [place] [address] Care Team Providers Care Automobile Body Repair Chief Name Role Phone KELLY BILLY Unavailable PROBLEMS Type Condition ICD9-CM Code NAK44-VG Code Onset Dates Condition S tatus SNOMED Code Problem Right elbow pain M25.521 Active 267 472366 Problem Major depressive disorder wi th single episode, remission status unspecified F32.9 Active 17129274 Problem Menopause Z78.0 Active 269893529 Problem Chronic obstructive pulmonary disease, unspecified COPD ty pe J44.9 Active 62471133 Problem Attention deficit hyperactivity disorder (ADHD), combi lars type F90.2 Active 81417809 Problem ADHD (attention deficit hyperactivity disorder), inattentive type F90.0 Active 37419029 Problem Well woman exam with routine gynecological exam Z0 1.419 Active 103171941 Problem Lateral epicondylitis of right elbow M77.11 Active 532491838 Problem Bipolar II disorder F31.81 Active 61463678 Problem Panic disorder with agoraphobia and moderate panic attacks F40.01 Active 6263334 ALLERGIES No Information SOCIAL HISTORY Never Assessed PLAN OF CARE VITAL SIGNS MEDICATIONS Medication Instructions Dosage Frequency Start Date End Date Duration S tatus Latuda 20 mg Orally Once a day with evening meal 1 tablet 2 1 Oct, 2016 90 days Active RESULTS No Results PROCEDURES No Known procedures IMMUNIZATIONS No Known Immunizations MEDICAL (GENERAL) HISTORY Type Description Date Medical History depression Medical History elbow pain Surgical History section 1985 Surgical History cataract both eyes Surgical History left arm rotator cuff Hospitalization History surgical only
--- OUTSIDE RECORDS SUMMARY | 2020-03-13 07:31 | XMS REPORT ---
Author Author Bailey AMARO Organization [employer] Address Unknown Phone Unavailable Care Team Providers Care Manager Flight Operations Name Role Phone JOY AMARO CP Unavailable Allergies No Known Allergies Problems Problem Type Condition Code Onset Dates Condition Statu s Problem Need for prophylactic vaccination and inoculation, Inf luenza V04.81 Active Problem Acute pharyngitis 462 Active Problem Sinusitis 473.9 Active Medications Medication Code System Code Instructions Start Date End Date Status Dosage Symbicort [facility][NOTE 3] [address]-24 160-4.5 MCG/ACT Inhalation Twice a day 2 puffs Results No Known Results Summary Purpose [employer] Submission
--- OUTSIDE RECORDS SUMMARY | 2020-03-13 07:31 | XMS REPORT ---
Author Author Bailey OTTO [facility] Address [address] [place] [address] Care Team Providers Care Brick Catcher Name Role Phone SABIHA OTTO Unavailable PROBLEMS Type Condition ICD9-CM Code [id number] Code Onset Dates Condition S tatus SNOMED Code Problem Well woman exam with routine gynecological exam Z0 1.419 Active 852165306 Problem Lateral epicondylitis of right elbow M77.11 Active 013871517 Problem Right elbow pain M25.521 Active 267 958163 Problem Menopause Z78.0 Active 568490162 Problem Major depressive disorder wi th single episode, remission status unspecified F32.9 Active 47769974 Problem Chronic obstructive pulmonary disease, unspecified COPD ty pe J44.9 Active 20904466 ALLERGIES Unknown Allergies SOCIAL HISTORY No smoking Hx information available PLAN OF CARE VITAL SIGNS MEDICATIONS Medication Instructions Dosage Frequency Start Date End Date Duration S tatus Flagyl 500 MG Orally every 8 hrs 1 tablet 8h 12 May, 2016 22 S , 2015 10 day(s) Active RESULTS No Results PROCEDURES No Known procedures IMMUNIZATIONS No Known Immunizations
--- OUTSIDE RECORDS SUMMARY | 2020-03-13 07:31 | XMS REPORT ---
Author Author Bailey OTTO [facility] eClinicalWorks Address Unknown Phone Unavailable Care Team Providers Care Aviation Technical Systems Specialist Name Role Phone SABIHA OTTO CP Unavailable Allergies, Adverse Reactions, Alerts Substance Reaction Event Type N.K.D.A. Info Not Available Non Drug Allergy Problems Problem Type Condition ICD-9 Code Onset Dates Condition Statu s Problem Need for prophylactic vaccination and inoculation, Inf luenza V04.81 Active Problem Acute pharyngitis 462 Active Problem Sinusitis 473.9 Active Assessment Sinusitis 473.9 Active Medications Medication Code System Code Instructions Start Date End Date Status Dosage Symbicort [facility] [address]-79 160-4.5 MCG/ACT Inhalation Twice a day 2 puffs PredniSONE [facility] [address]-52 10 MG Orally Twice a day May 19, 2015 May 24, 2015 1 tablet with food or milk Amoxicillin [facility] [address]-95 500 MG Orally 3 times a day May 19, 2015 May 29, 2015 1 tablet Procedures Procedure Coding System Code Date Office Visit, Est Pt., Level 3 CPT-4 95683 S ept 2014 Vital Signs Date/Time: May 19, 2015 Temperature 99.2 F Weight 148.0 lbs Height 70 in BMI 21.23 Index Blood Pressure Diastolic 78 mmHg Blood Pressure Systolic 120 mmHg Cardiac Monitoring Heart Rate 78 bpm Results No Known Results Summary Purpose eClinicalWorks Submission
--- OUTSIDE RECORDS SUMMARY | 2020-03-13 07:31 | XMS REPORT ---
Author Author Bailey BLISS [facility] Address [address] [place] [address] Care Team Providers Care Wall Cleaner Name Role Phone CECILIA BLISS Unavailable PROBLEMS Type Condition ICD9-CM Code [id number] Code Onset Dates Condition S tatus SNOMED Code Problem Right elbow pain M25.521 Active 267 419613 Problem Major depressive disorder wi th single episode, remission status unspecified F32.9 Active 09197384 Problem Menopause Z78.0 Active 262448267 Problem Chronic obstructive pulmonary disease, unspecified COPD ty pe J44.9 Active 13086959 Problem Attention deficit hyperactivity disorder (ADHD), combi lars type F90.2 Active 18320595 Problem ADHD (attention deficit hyperactivity disorder), inattentive type F90.0 Active 83782794 Problem Well woman exam with routine gynecological exam Z0 1.419 Active 505561716 Problem Lateral epicondylitis of right elbow M77.11 Active 553838149 Problem Bipolar II disorder F31.81 Active 17206696 Problem Panic disorder with agoraphobia and moderate panic attacks F40.01 Active 9311037 ALLERGIES No Known Allergies SOCIAL HISTORY Never Assessed PLAN OF CARE Activity Details Follow Up 6 Weeks Reason: VITAL SIGNS Height 70 in 2016-10-28 Weight 150.0 lbs 2016-10-28 Heart Rate 118 bpm 2016-10-28 Respiratory Rate 20 2016-10-28 BMI 21.52 kg/m2 2016-10-28 Blood pressure systolic 130 mmHg 2016-10-28 Blood pressure diastolic 77 mmHg 2016-10-28 MEDICATIONS Medication Instructions Dosage Frequency Start Date End Date Duration S tatus Mobic 15 MG Orally Once a day 1 tablet 24h A ctive Metoprolol Tartrate 25 MG Orally Take 1 tab at HS for 5 nights then increase to 1 tab twice daily 1 tablet with food Oct, Active Prozac 20 mg Orally Once a day 1 capsule in the morning 24h 30 days Active Cyclobenzaprine HCl 10 mg Orally one daily prn 1 tablet Active Prozac 40 mg Orally Once a day 1 capsule in the morning 24h 30 days Active Aspirin 81 MG Orally Once a day 1 tablet 24h Active Latuda 20 mg Orally Once a day with evening meal 1 tablet Oct Active Symbicort 160-4.5 MCG/ACT INHALE TWO PUFFS BY MOUTH TWICE DAILY Active Premarin 0.625 MG Orally Once a day 1 tablet 24h Mar, Active RESULTS No Results PROCEDURES No Known procedures IMMUNIZATIONS No Known Immunizations MEDICAL (GENERAL) HISTORY Type Description Date Medical History depression Medical History elbow pain Surgical History section 1985 Surgical History cataract both eyes Surgical History left arm rotator cuff Hospitalization History surgical only
--- OUTSIDE RECORDS SUMMARY | 2020-03-13 07:31 | XMS REPORT ---
Author Author Bailey BILLY Organization [facility] Address [address] [place] [address] Care Team Providers Care Private Chef Name Role Phone KELLY BILLY Unavailable PROBLEMS Type Condition ICD9-CM Code CQL47-MD Code Onset Dates Condition S tatus SNOMED Code Problem Right elbow pain M25.521 Active 267 380477 Problem Major depressive disorder wi th single episode, remission status unspecified F32.9 Active 27866516 Problem Menopause Z78.0 Active 867531377 Problem Chronic obstructive pulmonary disease, unspecified COPD ty pe J44.9 Active 46821898 Problem Attention deficit hyperactivity disorder (ADHD), combi lars type F90.2 Active 52244971 Problem ADHD (attention deficit hyperactivity disorder), inattentive type F90.0 Active 00884747 Problem Well woman exam with routine gynecological exam Z0 1.419 Active 011147252 Problem Lateral epicondylitis of right elbow M77.11 Active 414091429 Problem Bipolar II disorder F31.81 Active 25027821 Problem Panic disorder with agoraphobia and moderate panic attacks F40.01 Active 5075640 ALLERGIES No Information SOCIAL HISTORY Never Assessed PLAN OF CARE VITAL SIGNS MEDICATIONS Medication Instructions Dosage Frequency Start Date End Date Duration S tatus Prozac 40 mg Orally Once a day 1 capsule in the morning 24h 90 days Active Prozac 20 mg Orally Once a day 1 capsule in the morning 24h 90 days Active Abilify 2 MG Orally Once a day 1 tablet 24h Oct, 90 days Active RESULTS No Results PROCEDURES No Known procedures IMMUNIZATIONS No Known Immunizations MEDICAL (GENERAL) HISTORY Type Description Date Medical History depression Medical History elbow pain Surgical History section 1985 Surgical History cataract both eyes Surgical History left arm rotator cuff Hospitalization History surgical only
--- OUTSIDE RECORDS SUMMARY | 2020-03-13 07:31 | XMS REPORT ---
Author Author Bailey OTTO [facility] Address [address] [place] [address] Care Team Providers Care Biodiesel Product Development Manager Name Role Phone OTTODAVIDSABIHA Unavailable PROBLEMS Type Condition ICD9-CM Code [id number] Code Onset Dates Condition S tatus SNOMED Code Problem Right elbow pain M25.521 Active 267 569163 Problem Major depressive disorder wi th single episode, remission status unspecified F32.9 Active 35249274 Problem Menopause Z78.0 Active 394555860 Problem Chronic obstructive pulmonary disease, unspecified COPD ty pe J44.9 Active 36601843 Problem Attention deficit hyperactivity disorder (ADHD), combi lars type F90.2 Active 60338754 Problem ADHD (attention deficit hyperactivity disorder), inattentive type F90.0 Active 29247580 Problem Well woman exam with routine gynecological exam Z0 1.419 Active 160525133 Problem Lateral epicondylitis of right elbow M77.11 Active 313003171 Problem Bipolar II disorder F31.81 Active 63084761 Problem Panic disorder with agoraphobia and moderate panic attacks F40.01 Active 5845023 ALLERGIES No Known Allergies SOCIAL HISTORY Never Assessed PLAN OF CARE Activity Details Follow Up 3 Months Reason:copd VITAL SIGNS Height 70 in 2016-11-13 Weight 156.4 lbs 2016-11-13 Temperature 97.5 degrees Fahrenheit 2016-11-13 Heart Rate 92 bpm 2016-11-13 Respiratory Rate 20 2016-11-13 Oximetry 97 % 2016-11-13 BMI 22.44 kg/m2 2016-11-13 Blood pressure systolic 115 mmHg 2016-11-13 Blood pressure diastolic 63 mmHg 2016-11-13 MEDICATIONS Medication Instructions Dosage Frequency Start Date End Date Duration S tatus Symbicort 160-4.5 MCG/ACT Inhalation Twice a day INHALE TWO PUFFS BY MOUTH TWICE DAILY 12h Active Latuda 20 mg Orally Once a day with evening meal 1 tablet 2 Oct, 90 days Active Prozac 20 mg Orally Once a day 1 capsule in the morning 24h 90 days Active Mobic 15 MG Orally Once a day 1 tablet 24h A ctive Premarin 0.625 MG Orally Once a day 1 tablet 24h Mar, Active Aspirin 81 MG Orally Once a day 1 tablet 24h Active Prozac 40 mg Orally Once a day 1 capsule in the morning 24h 90 days Active Cyclobenzaprine HCl 10 mg Orally one daily prn 1 tablet Active RESULTS No Results PROCEDURES Procedure Date Ordered Result Body Site MEASURE BLOOD OXYGEN LEVEL November 13, 2016 IMMUNIZATIONS No Known Immunizations MEDICAL (GENERAL) HISTORY Type Description Date Medical History depression Medical History elbow pain Surgical History section 1988, 1985 Surgical History cataract both eyes Surgical History left arm rotator cuff Hospitalization History surgical only
--- OUTSIDE RECORDS SUMMARY | 2020-03-13 07:31 | XMS REPORT ---
Author Author Bailey AMARO Organization eClinical[employer] Address Unknown Phone Unavailable Care Team Providers Care Kitchen Designer Name Role Phone JOY AMARO CP Unavailable Allergies No Known Allergies Problems Problem Type Condition ICD-9 Code Onset Dates Condition Statu s Problem Need for prophylactic vaccination and inoculation, Inf luenza V04.81 Active Problem Acute pharyngitis 462 Active Problem Sinusitis 473.9 Active Medications Medication Code System Code Instructions Start Date End Date Status Dosage Symbicort [facility] [address]-56 160-4.5 MCG/ACT Inhalation Twice a day 2 puffs Results No Known Results Summary Purpose eClinicalWorks Submission
--- OUTSIDE RECORDS SUMMARY | 2020-03-13 07:31 | XMS REPORT ---
Author Author Bailey AMARO Organization [employer]Clinical[employer] Address Unknown Phone Unavailable Care Team Providers Care Supervisor Special Services Name Role Phone JOY AMARO CP Unavailable Allergies No Known Allergies Problems Problem Type Condition ICD-9 Code Onset Dates Condition Statu s Problem Acute pharyngitis 462 Active Problem Need for prophylactic vaccination and inoculation, Inf luenza V04.81 Active Medications No Known Medications Results No Known Results Summary Purpose eClinicalWorks Submission
--- OUTSIDE RECORDS SUMMARY | 2020-03-13 07:31 | XMS REPORT | Continuity of Care Document ---
Author Organization Unknown Address Unknown Phone Unavailable Allergies Active Description Code Type Severity Reaction Onset Reported/Identified Relationship to Patient Clinical Status Yes No Known Drug Allergies [id number] Drug Allergy Unknown N/A 07/14/2013 Medications There is no data. Problems Date Dx Coded Attending Type Code Diagnosis Diagnosed By 08/06/1507 MAGDALENA ECKERT DO Ot R10. 12 LEFT UPPER QUADRANT PAIN 08/06/1507 MAGDALENA ECKERT DO Ot R19. 4 CHANGE IN BOWEL HABIT 08/06/1507 MAGDALENA ECKERT DO Ot R19. 5 OTHER FECAL ABNORMALITIES 08/06/1507 MAGDALENA ECKERT DO Ot Z01.812 ENCOUNTER FOR PREPROCEDURAL LABORATORY E 08/06/1507 MAGDALENA ECKERT DO Ot Z20.828 CONTACT W AND EXPOSURE TO OTH VIRAL COMM 06/24/2013 KANA CHRISTIANSON, A V04.81 FLU SHOT 06/24/2013 RAJRUYE MANUFACTURING CONTROLS ENGINEER, A V04.81 FLU SHOT 06/24/2013 KANA CHRISTIANSON, A V04.81 FLU SHOT 07/14/2013 PAULO KINSEY MD Ot 305 .1 TOBACCO USE DISORDER 07/14/2013 PAULO KINSEY MD Ot 490 BRONCHITIS NOS 07/14/2013 PAULO KINSEY MD Ot 786.50 CHEST PAIN NOS 07/14/2013 PAULO KINSEY MD Ot 786.52 PAINFUL RESPIRATION 12/30/2013 KANA MANUFACTURING CONTROLS ENGINEER, A 462 PHARYNGITIS ACUTE 12/30/2013 RAJRUYE MEGHAN, A 462 PHARYNGITIS ACUTE 11/19/2018 PETRA JACOB DO S Ot 793.89 OTH (ABN) FINDINGS ON RADIOLOGICAL EXAMI 11/19/2018 PETRA JACOB DO Ot V76.12 OTH SCREEN MAMMO-MALIGN NEOPLASM OF JOSE 11/19/2018 ORENDER DO, PETRA S Ot 611.89 OTHER SPECIFIED DISORDERS OF BREAST 11/19/2018 ÓSCARNDER DO, PETRA David Ot 793.89 OTH (ABN) FINDINGS ON RADIOLOGICAL EXAMI 11/19/2018 ÓSCARNDER , PETRA S Ot 793.89 OTH (ABN) FINDINGS ON RADIOLOGICAL EXAMI 11/29/2018 ÓSCARNDJEANETTE HOLLIS, PETRA S Ot 793.89 OTH (ABN) FINDINGS ON RADIOLOGICAL EXAMI 11/29/2018 ÓSCARNDJEANETTE HOLLIS, PETRA David Ot V76.12 OTH SCREEN MAMMO-MALIGN NEOPLASM OF JOSE 11/29/2018 ÓSCARNDER , PETRA S Ot 611.89 OTHER SPECIFIED DISORDERS OF BREAST 11/29/2018 ÓSCARNDER DO, PETRA S Ot 793.89 OTH (ABN) FINDINGS ON RADIOLOGICAL EXAMI 11/29/2018 ÓSCARNDJEANETTE HOLLIS, PETRA S Ot 793.89 OTH (ABN) FINDINGS ON RADIOLOGICAL EXAMI 11/29/2018 ÓSCARNDJEANETTE HOLLIS, PETRA S Ot 793.89 OTH (ABN) FINDINGS ON RADIOLOGICAL EXAMI 11/29/2018 ÓSCARNDER , PETRA S Ot V76.12 OTH SCREEN MAMMO-MALIGN NEOPLASM OF JOSE 11/29/2018 ÓSCARNDER DO, PETRA S Ot 611.89 OTHER SPECIFIED DISORDERS OF BREAST 11/29/2018 ÓSCARNDJEANETTE HOLLIS, PETRA S Ot 793.89 OTH (ABN) FINDINGS ON RADIOLOGICAL EXAMI 11/29/2018 ÓSCARNDJEANETTE HOLLIS, PETRA S Ot 793.89 OTH (ABN) FINDINGS ON RADIOLOGICAL EXAMI 12/01/2018 ÓSCARNDJEANETTE HOLLIS, PETRA S Ot 793.89 OTH (ABN) FINDINGS ON RADIOLOGICAL EXAMI 12/01/2018 ÓSCARNDER DO, PETRA S Ot V76.12 OTH SCREEN MAMMO-MALIGN NEOPLASM OF JOSE 12/01/2018 ÓSCARNDER DO, PETRA S Ot 611.89 OTHER SPECIFIED DISORDERS OF BREAST 12/01/2018 ÓSCARNDER DO, PETRA S Ot 793.89 OTH (ABN) FINDINGS ON RADIOLOGICAL EXAMI 12/01/2018 ÓSCARNDER DO, PETRA S Ot 793.89 OTH (ABN) FINDINGS ON RADIOLOGICAL EXAMI 12/08/2019 GAULT MD, DAVID R Ot R10.3 2 LEFT LOWER QUADRANT PAIN 12/09/2019 MARTELL YARBROUGH, DAVID R Ot R10.3 2 LEFT LOWER QUADRANT PAIN 02/08/2020 MARTELL YARBROUGH, DAVID R Ot R10.3 2 LEFT LOWER QUADRANT PAIN 02/08/2020 MARTELL YARBROUGH, DAVID R Ot R10.3 2 LEFT LOWER QUADRANT PAIN 02/09/2020 MARTELL YARBROUGH, DAVID R Ot R10.3 2 LEFT LOWER QUADRANT PAIN 02/13/2020 MARTELL YARBROUGH, DAVID Calzada Ot R10.3 2 LEFT LOWER QUADRANT PAIN 03/06/2020 MARTELL YARBROUGH, DAVID Calzada Ot R10.3 2 LEFT LOWER QUADRANT PAIN Procedures Code Description [place] [address] STRE P A (IN-HOUSE) 12/30/2013 Results Test Result Range Pap Lb, rfx HPV ASCU - 05/15/16 00:00 DIAGNOSIS: Comment Specimen adequacy: Comment Clinician provided ICD10: Comment Performed by: Comment QC reviewed by: Comment . . Pathologist provided ICD10: Comment Note: Comment . Comment CBC With Differential/Platelet - 6 09:07 WBC 8.6 x10E3/uL 3.4-10.8 RBC 4.68 x10E6/uL 3.77-5.28 Hemoglobin 13.4 g/dL 11.1-15.9 Hematocrit 38.9 % 34.0-46.6 MCV 83 fL 79-97 MCH 28.6 pg 26.6-33.0 MCHC 34.4 g/dL 31.5-35.7 RDW 13.9 % 12.3-15.4 Platelets 401 x10E3/uL 150-379 Neutrophils 67 % Lymphs 19 % Monocytes 9 % Eos 4 % Basos 1 % Neutrophils (Absolute) 5.8 x10E3/uL 1.4- 7.0 Lymphs (Absolute) 1.6 x10E3/uL 0.7-3.1 Monocytes(Absolute) 0.8 x10E3/uL 0.1-0.9 Eos (Absolute) 0.3 x10E3/uL 0.0-0.4 Baso (Absolute) 0.1 x10E3/uL 0.0-0.2 Immature Granulocytes 0 % Immature Grans (Abs) 0.0 x10E3/uL 0.0-0. 1 Comp. Metabolic Panel (14) - 05/15/16 09 :07 Glucose, Serum 101 mg/dL 65-99 BUN 7 mg/dL 6-24 Creatinine, Serum 0.69 mg/dL 0.57-1.00 eGFR If NonAfricn Am 103 mL/min/1.73 >59 eGFR If Africn Am 118 mL/min/1.73 >5 9 BUN/Creatinine Ratio 10 9-23 Sodium, Serum 144 mmol/L 134-144 Potassium, Serum 4.2 mmol/L 3.5-5.2 Chloride, Serum 101 mmol/L 97-108 Carbon Dioxide, Total 26 mmol/L 18-29 Calcium, Serum 9.9 mg/dL 8.7-10.2 Protein, Total, Serum 7.5 g/dL 6.0-8.5 Albumin, Serum 4.6 g/dL 3.5-5.5 Globulin, Total 2.9 g/dL 1.5-4.5 A/G Ratio 1.6 1.1-2.5 Bilirubin, Total 0.5 mg/dL 0.0-1.2 Alkaline Phosphatase, S 62 IU/L 39-117 AST (SGOT) 18 IU/L 0-40 ALT (SGPT) 16 IU/L 0-32 Lipid Panel - 05/15/16 09:07 Cholesterol, Total 214 mg/dL 100-199 Triglycerides 84 mg/dL 0-149 HDL Cholesterol 76 mg/dL >39 VLDL Cholesterol Juan 17 mg/dL 5-40 LDL Cholesterol Calc 121 mg/dL 0-99 TSH - 05/15/16 09:07 TSH 3.100 uIU/mL 0.450-4.500 Genital Culture, Routine - 05/15/16 09:0 7 Genital Culture, Routine Note SUREPATH PAP AND HPV mRNA E6/E7 - 17:32 CLINICAL INFORMATION: NRG LMP: NRG PREV. PAP: NRG PREV. BX: NRG SOURCE: Cervix NRG STATEMENT OF ADEQUACY: NRG INTERPRETATION/RESULT: NRG DIGITAL ARCHIVIST: NRG HPV mRNA E6/E7, SUREPATH VIAL Not Detected NOT DETECTED COMMENT NRG CULTURE, GENITAL - 04/22/18 17:32 CULTURE, GENITAL SEE NOTE NRG A1C - 04/26/18 08:30 HEMOGLOBIN A1c 5.1 % of total Hgb <5.7 Coronavirus SARS-CoV-2 SO 2019 - 0 07:50 Coronavirus Ab [Units/volume] in Serum Negative Negative Encounters ACCT No. Visit Date/Time Discharge Status Pt. Type Provider Facility Loc./Unit Complaint [id number] 06/16/2014 11:04:00 06/16/2014 23:59: 59 CLS Outpatient CHERYL ROGER APRN [id number] 12/30/2013 13:53:00 12/30/2013 23:59: 59 CLS Outpatient CHERYL ROGER APRN [id number] 06/24/2013 11:17:00 06/24/2013 23:59: 59 CLS Outpatient CHERYL ROGER APRN [id number] 03/08/2020 05:50:00 020 15:08:00 DIS Outpatient MAGDALENA ECKERT DO [facility] PREOP COLONOSCOPY [id number] 12/07/2019 11:50:00 020 23:59:59 CLS Outpatient DAVID MOURA MD [facility] RAD FS R10.32 [id number] 12/01/2018 07:45:00 019 23:59:59 CLS Preadmit NATALIYA YARBROUGH, ROLDAN Sam [facility] CARD LEFT ARM PAIN [id number] 06/12/2014 14:08:00 014 23:59:59 CLS Outpatient PETRA JACOB DO [facility] RAD 6 MONTH FOLLOW UP ABNORMAL MAMMO [id number] 11/09/2013 08:37:00 014 23:59:59 CLS Outpatient PETRA JACOB DO S [facility] RAD BILAT BREAST YMMETRY [id number] 10/24/2013 09:54:00 014 23:59:59 CLS Outpatient PETRA JACOB DO S [facility] RAD ROUTINE [id number] 07/14/2013 08:48:00 013 11:38:00 DIS Emergency PAULO KINSEY MD [facility] ER CHEST PAIN [id number] 03/13/2020 10:10:00 P EN Preadmit MAGDALENA ECKERT DO [facility] CHANGE IN BOWEL HABITS/OCCUL T+ BLOOD/LLQ ABD PAIN [id number] 03/17/2019 13:20:00 03/17/2019 23:59:5 9 [facility] Outpatient DAVID MOURA [facility] [id number] 04/26/2018 08:00:00 Document Registration [id number] 04/22/2018 16:44:00 Document Registration [id number] 04/22/2018 15:40:00 Document Registration [id number] 05/20/2016 05:05:00 Document Registration [id number] 05/16/2016 08:46:00 Document Registration [id number] 05/18/2016 13:05:00 Document Registration
--- OUTSIDE RECORDS SUMMARY | 2020-03-13 07:31 | XMS REPORT ---
Author Bailey Cruz [facility] eClinicalWorks Address Unknown Phone Unavailable Care Team Providers Care Soft Metals Engraver Hand Name Role Phone SABIHA OTTO CP Unavailable Allergies, Adverse Reactions, Alerts Substance Reaction Event Type N.K.D.A. 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 [address]-79 20 mg Orally Once a day 1 capsule in the morning Mobic [facility] [address]-95 15 MG Orally Once a day 1 tablet Symbicort [facility] 08838924837 160-4.5 MCG/ACT INHALE TWO PUFFS BY MOUTH TWICE DAILY Prozac [facility] [address]-13 40 MG Orally Once a day 1 capsule in the morning Aspirin [facility] [address]-83 81 MG Orally Once a day 1 tablet ProAir RespiClick [facility] [address]-77 108 (90 Base) MCG/ACT Inhalation every 4 hrs March 11, 2016 1 puff as needed Cyclobenzaprine HCl [facility] [address]-17 10 mg Orally one daily prn 1 tablet Premarin [facility] [address]-93 0.625 MG Orally Once a day March 25, 2016 1 tablet Procedures Procedure Coding System Code Date Office Visit, Est Pt., Level 4 CPT-4 91020 J [facility] 2015 Vital Signs Date/Time: March 25, 2016 Cardiac Monitoring Heart Rate 76 bpm Weight 139.3 lbs Height 70 in Blood Pressure Diastolic 70 mmHg Blood Pressure Systolic 128 mmHg Results No Known Results Summary Purpose eClinicalWorks Submission
--- OUTSIDE RECORDS SUMMARY | 2020-03-13 07:31 | XMS REPORT ---
Author Author Bailey AMARO Organization [employer] Address Unknown Phone Unavailable Care Team Providers Care Serging Machine Operator Name Role Phone JOY AMARO CP Unavailable Allergies, Adverse Reactions, Alerts Substance Reaction Event Type N.K.D.A. Info Not Available Non Drug Allergy Problems Problem Type Condition ICD-9 Code Onset Dates Condition Statu s Problem Acute pharyngitis 462 Active Assessment Dysuria 788.1 Active Problem Need for prophylactic vaccination and inoculation, Inf luenza V04.81 Active Assessment Anxiety 300.00 Active Assessment Muscle spasm 728.85 Active Assessment Urinary tract infection 599.0 Acti ve Assessment Depression 311 Active Medications Medication Code System Code Instructions Start Date End Date Status Dosage HydrOXYzine HCl [facility] [address]-27 50 MG Orally every 8 hrs prn Apr 082014 1 tablet as needed Cipro [facility] [address]-32 250 MG Orally Twice a day May 03, 2015May 1 tablet Prozac [facility] [address]-72 40 MG Orally Once a day 1 capsule in the morning Cyclobenzaprine HCl [facility] [address]-27 10 MG Orally PRN 1 tablet Symbicort [facility] [address]-96 160-4.5 MCG/ACT Inhalation Twice a day 2 puffs Aspirin [facility] [address]-08 81 MG Orally Once a day 1 tablet Prozac [facility] [address]-54 20 MG Orally Once a day 1 capsule in the morning Procedures Procedure Coding System Code Date Office Visit, Est Pt., Level 4 CPT-4 37509 A 2014 URINALYSIS, AUTO, W/O SCOPE CPT-4 28625 May 03, 2015 Vital Signs Date/Time: May 03, 2015 Temperature 97.7 F Weight 147.6 lbs Height 70 in BMI 21.18 Index Blood Pressure Diastolic 70 mmHg Blood Pressure Systolic 115 mmHg Cardiac Monitoring Heart Rate 88 bpm Results Name Result Date Reference Range Unit Abnormali ty Flag UA W/CULTURE IF INDICATED (IN HOUSE) Summary Purpose eClinicalWorks Submission
[2020-03-13] MEDS ORDERED: LACTATED RINGERS 1,000 ML IV ONE (07:38)
[2020-03-13] MEDS ORDERED: LACTATED RINGERS 1,000 ML IV PRN (07:45)
[2020-03-13] MEDS ORDERED: PROPOFOL INJECTION 50 ML IV ONE ×3 (07:57→09:21)
[2020-03-13] MEDS ORDERED: MIDAZOLAM 2 MG/2 ML (VERSED) VIAL ONE (07:58)
--- NOTE | 2020-03-13 08:38 | Progress Note-Post Operative ---
Post-Operative Progess Note Surgeon (s)/Certified Court Interpreter (s) Surgeon MAGDALENA ECKERT DO Certified Court Interpreter: na Pre-Operative Diagnosis change in bowel habits, llq abd pain, occult + stool Post-Operative Diagnosis sigmoid polyp Procedure & Operative Findings Date of Procedure 03/13/20 Procedure Performed/Findings colonoscopy with hot bx polypectomy Anesthesia Type per teaching aide Estimated Blood Loss Estimated blood loss (mL): none Specimens/Packing Specimens Removed sigmoid polyp MAGDALENA ECKERT DO Mar 13, 2020 08:38
--- NOTE | 2020-03-13 08:40 | Discharge Inst-Simple/Standard ---
Discharge Inst-Standard Discharge Medications New, Converted or Re-Newed RX: RX on Chart Patient Instructions/Follow Up Plan of Care/Instructions/FU: 2 weeks Marilynn High fiber diet, also taking supplemental fiber. Activity as Tolerated: Yes Discharge Diet: Regular Diet (high fiber) MAGDALENA ECKERT DO Mar 13, 2020 08:40
--- NOTE | 2020-03-13 10:37 | Anesthesia-General Post-Op ---
MAC Patient Condition Mental Status/LOC: Same as Preop Cardiovascular: Satisfactory Nausea/Vomiting: Absent Respiratory: Satisfactory Pain: Controlled Complications: Absent Post Op Complications Complications None Follow Up Care/Instructions Patient Instructions None needed. Anesthesiology Discharge Order Discharge Order Patient is doing well, no complaints, stable vital signs, no apparent adverse anesthesia problems. No complications reported per nursing. ZOEY MORFIN CRNA Mar 13, 2020 10:37
--- NOTE | 2020-03-13 13:03 | OPERATIVE REPORT ---
DATE OF SERVICE: 03/13/2020 PREOPERATIVE DIAGNOSES: Change in bowel habits, left lower quadrant abdominal pain, occult positive stool. POSTOPERATIVE DIAGNOSIS: Sigmoid colon polyp. PROCEDURE: Colonoscopy with hot biopsy polypectomy. SURGEON: Magdalena Subramanian DO ANESTHESIA: Per CARROTING MACHINE OPERATOR. ESTIMATED BLOOD LOSS: None. COMPLICATIONS: None. INDICATIONS: The patient is a 54-year-old female with left lower quadrant abdominal pain, change in bowel habits, occult positive stool. She understands risks and benefits of procedure and wished to proceed with procedure. Consent was signed in the chart. DESCRIPTION OF PROCEDURE: The patient was taken to the endoscopy suite, placed in left lateral recumbent position. Timeout was performed. Digital rectal exam was performed. No palpable polyps, masses or ulcerations. Scope was inserted in the rectum and advanced all the way to the cecum with minimal difficulty. Prep was adequate. Scope was then slowly retracted back. There were no polyps, masses or ulcerations within the cecum, ascending, transverse and descending colon and sigmoid colon, and a small polyp was present, which hot biopsy polypectomy was performed. Scope was then continuously retracted back noting no other pathology. Once in the rectum, scope was retroflexed noting no other pathology. Scope was returned to its normal position, slowly withdrawn until completely removed. The patient tolerated procedure well without any complications. She was taken to recovery room in stable condition. RECOMMENDATIONS: The patient recommended high fiber diet. Using supplementation if not able to obtain by dietary measures. The patient also has family history of colon cancer. I would recommend repeat colonoscopy in 3 to 5 years due to the family history of colon cancer and polyps. The patient will follow up in the office in 2 weeks to discuss pathology. Job ID: [id number] DocumentID: [id number] Dictated Date: 03/13/2020 08:42:31 Piecer Date: 03/13/2020 13:03:05 Dictated By: MAGDALENA SUBRAMANIAN DO
== END 2020-03-13 09:20 | disposition home or self-care (01) ==
LOC: ENDO 07:21
PROVIDERS: ATTEND Surgery
DX: K63.5 Polyp of colon (principal); Z80.0 Family history of malignant neoplasm of digestive organs; F32.9 Major depressive disorder, single episode, unspecified; Z79.899 Other long term (current) drug therapy; Z79.82 Long term (current) use of aspirin; Z87.19 Personal history of other diseases of the digestive system; F17.210 Nicotine dependence, cigarettes, uncomplicated
CPT/HCPCS: 88305